=== PATIENT | female | born 1960 | race Caucasian/White ===

== ENCOUNTER 2023-01-29 11:17 | Outpatient (OUT) | payer MEDICARE, SELFPAY ==
--- NOTE | 2023-01-29 11:34 | XR_ITS ---
[address] [address] Patient Name: TAMIKA MYRICK MRN: [id number] date: 1960 Sex: F Assigned Patient Location: [facility] Current Patient Location: [facility] Accession/Order Number: [id number] Exam Date: 01/29/2023 11:55 Report Date: 01/29/2023 12:20 At the request of: KISHA CASTELLANOS Procedure: XR chest 2V EXAM: XR chest 2V HISTORY: Chronic bronchitis J42, acute cough R05.1 COMPARISON: 09/22/2022 TECHNIQUE: Upright PA and lateral chest x-ray FINDINGS: The heart is not enlarged and the vasculature is not distended. No acute infiltrate, effusion or pneumothorax is identified. An old rib fracture is noted on the right. IMPRESSION: No acute infiltrate or evidence of cardiac decompensation. The overall appearance of the chest is unchanged. Electronically authenticated by: CHEPE AMOS Date: 01/29/2023 12:20
== END 2023-01-29 11:18 | disposition home or self-care (01) ==
LOC: RAD 11:25
PROVIDERS: Family Provider Internal Medicine; PCP Internal Medicine; Visit Provider Nurse Practitioner Family
DX: J42 Unspecified chronic bronchitis (principal); R05.1 Acute cough
CPT/HCPCS: 71046

== ENCOUNTER 2023-05-01 22:12 | Outpatient (OUT) | payer MEDICARE, SELFPAY | END 2023-05-01 22:13 | disposition home or self-care (01) | LOC: SLEEP 22:12 | PROVIDERS: Family Provider Internal Medicine; PCP Physician Assistant; Visit Provider Physician Assistant | DX: G47.33 Obstructive sleep apnea (adult) (pediatric) (principal) | CPT/HCPCS: 95810 ==

== ENCOUNTER 2023-05-14 08:53 | Outpatient (OUT) | payer MEDICARE, SELFPAY ==
--- NOTE | 2023-05-14 09:11 | MM_ITS ---
Patient: TAMIKA MYRICK Exam Date: 05/14/2023 : 1960 Gender:F Ordering : DR JUSTIN ALVAREZ M.D. Admission #: [id number] Family : DR VIVIANA POLLOCK Order #: [id number] CLICK HERE TO VIEW EXAM RADIOLOGY REPORT PROCEDURE: MM TOMOSYNTHESIS SCREENING BI COMPARISON: MG MAMM SCREEN 3D [place] CAD, 12/13/2020. MM SCREENING MAMMO BI, 06/15/2019. MM SCREENING MAMMO BI, 04/25/2018. INDICATIONS: Screening Calculator Name NCI Breast Cancer Risk Assessment Tool 5 Year Breast Cancer Risk 1.50% Lifetime Breast Cancer Risk 7.40% Personal Breast Cancer No Personal Ovarian Cancer No Treatments None Family Cancers Mother with lung cancer at age 87. LOCATION: [facility] BREAST COMPOSITION: Scattered areas fibroglandular density. FINDINGS: DIAGNOSTIC CATEGORY 2--BENIGN FINDING: RIGHT BREAST: No significant suspicious finding. Scattered benign-appearing lymph nodes are present. No significant change has occurred. LEFT BREAST: No significant suspicious finding. Scattered benign-appearing lymph nodes are present. No significant change has occurred. RECOMMENDATIONS: ROUTINE MAMMOGRAM AND CLINICAL EVALUATION IN 12 MONTHS. PLEASE NOTE: A NORMAL MAMMOGRAM DOES NOT EXCLUDE THE POSSIBILITY OF BREAST CANCER. A CLINICALLY SUSPICIOUS PALPABLE LUMP SHOULD BE BIOPSIED. Dictated by: Taiwo Whitaker M.D. on 05/15/2023 at 13:58 Approved by: Taiwo Whitaker M.D. on 05/15/2023 at 14:01
[2023-05-14 09:17] LABS: Basophils Absolute Auto 0.1 10^3/uL (0.0-0.1); Basophils Percent Auto 0.7 % (0.2-2.0); Eosinophils Absolute Auto 0.7 10^3/uL (0.0-0.7); Hematocrit 39.2 % (36.0-48.0); Hemoglobin 12.7 g/dL (12.0-16.0); Immature Granulocytes Abs Auto 0.02 10^3/uL (0.00-0.03); Immature Granulocytes Pct Auto 0.2 % (0.0-0.5); Lymphocytes Absolute Auto 3.2 10^3/uL (1.2-3.8); Lymphocytes Percent Auto 32.2 % (20.5-60.0); Mean Corpuscular HGB Conc 32.4 g/dL (29.9-35.2); Mean Corpuscular Hemoglobin 27.7 pg (26.7-34.0); Mean Corpuscular Volume 85.6 fL (81.0-99.0); Mean Platelet Volume 11.3 fL (9.5-13.5); Monocytes Absolute Auto 0.7 10^3/uL (0.3-0.8); Monocytes Percent Auto 6.7 % (1.7-12.0); Neutrophils Absolute Auto 5.3 10^3/uL (1.4-6.5); Neutrophils Percent Auto 53.2 % (43.0-75.0); Platelet Count 146 10^3/uL (150-450); Red Blood Count 4.58 10^6/uL (4.20-5.40); Red Cell Distribution Width 13.4 % (11.0-15.0); White Blood Count 9.9 10^3/uL (4.0-11.0)
[2023-05-14 10:12] LABS: Alanine Aminotransferase 22 U/L (14-59); Albumin Globulin Ratio 0.9; Albumin Level 3.2 g/dL (3.4-5.0); Alkaline Phosphatase 67 U/L (46-116); Anion Gap 12.4; Aspartate Amino Transferase 15 U/L (15-37); Bilirubin Total 0.1 mg/dL (0.2-1.0); Calcium 9.3 mg/dL (8.5-10.1); Carbon Dioxide 27.2 mmol/L (21.0-32.0); Chloride 102 mmol/L (98-107); Chol HDL Ratio 4.1; Cholesterol 219 mg/dL (<=200); Estimated GFR (African America >60 (>=60); Estimated GFR (Non-African Ame >60 (>=60); Globulin 3.5 g/dL; Glucose 113 mg/dL (74-106); HDL Cholesterol 53 mg/dL (40-60); Potassium 3.6 mmol/L (3.5-5.1); Sodium 138 mmol/L (136-145); Thyroid Stimulating Hormone 1.168 uIU/mL (0.358-3.740); Total Protein 6.7 g/dL (6.4-8.2); Triglycerides 212 mg/dL (<=150); VLDL CHOLESTEROL 42.4 mg/dL
[2023-05-14 10:25] LABS: Creatinine Urine Random 153.24 mg/dL (20.00-300.00); Microalbum Creatinine Ratio Ur 8.4 mg/g (0.0-29.9); Microalbumin Urine Random <1.3 mg/dL (<=30.0)
[2023-05-15 05:07] LABS: HCV Antibody Non Reactive (Non Reactive)
== END 2023-05-14 08:54 | disposition home or self-care (01) ==
LOC: MAMMO 08:55
PROVIDERS: Family Provider Internal Medicine; PCP Physician Assistant; Visit Provider Internal Medicine
DX: Z12.31 Encounter for screening mammogram for malignant neoplasm of breast (principal); E78.2 Mixed hyperlipidemia; Z11.59 Encounter for screening for other viral diseases; E11.9 Type 2 diabetes mellitus without complications; J43.9 Emphysema, unspecified; Z80.1 Family history of malignant neoplasm of trachea, bronchus and lung
CPT/HCPCS: 36415; 77063; 77067; 80053; 80061; 82043; 82570; 84443; 85025; 86803

== ENCOUNTER 2023-05-22 12:05 | Outpatient (OUT) | payer MEDICARE, SELFPAY ==
--- NOTE | 2023-05-22 | XR_ITS ---
The [address] [address] Patient Name: TAMIKA MYRICK MRN: [id number] date: 1960 Sex: F Assigned Patient Location: [facility] Current Patient Location: [facility] Accession/Order Number: [id number] Exam Date: 05/22/2023 12:13 Report Date: 05/22/2023 12:28 At the request of: KISHA CASTELLANOS Procedure: XR chest 2V EXAM: XR chest 2V HISTORY: J40; Bronchitis COMPARISON: None. TECHNIQUE: PA and lateral views of the chest. FINDINGS: The cardiomediastinal silhouette is normal. No focal consolidation is identified. There is no pneumothorax. No pleural effusion is noted. The osseous structures are intact. XR/XR chest 2V IMPRESSION: No acute cardiopulmonary process. Electronically authenticated by: MARYANN GORE Date: 05/22/2023 12:28
== END 2023-05-22 12:06 | disposition home or self-care (01) ==
LOC: RAD 12:06
PROVIDERS: Family Provider Internal Medicine; PCP Physician Assistant; Visit Provider Nurse Practitioner Family
DX: J40 Bronchitis, not specified as acute or chronic (principal)
CPT/HCPCS: 71046

== ENCOUNTER 2023-07-09 19:47 | Outpatient (OUT) | payer MEDICARE, SELFPAY | END 2023-07-09 19:48 | disposition home or self-care (01) | LOC: SLEEP 19:47 | PROVIDERS: Family Provider Internal Medicine; PCP Physician Assistant; Visit Provider Physician Assistant | DX: G47.33 Obstructive sleep apnea (adult) (pediatric) (principal) | CPT/HCPCS: 95811 ==

== ENCOUNTER 2023-10-09 14:03 | Outpatient (OUT) | payer MEDICARE, OTHER, SELFPAY ==
--- OUTSIDE RECORDS SUMMARY | 2023-10-09 14:31 | XMS_ITS | CCD ---
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 Name Role Phone JUSTIN ALVAREZ Primary Care Unavailable JUSTIN ALVAREZ Admitting Unavailable JUSTIN ALVAREZ Attending Unavailable JUSTIN ALVAREZ Primary Care Unavailable KATHIA THORNTON Admitting Unavailable KATHIA THORNTON Attending Unavailable Whitney Garces Admitting Unavailable Whitney Garces Attending Unavailable JUSTIN ALVAREZ Primary Care Unavailable Valente White PA-C Admitting Unavailabl e Valente White PA-C Attending Unavailabl e JUSTIN ALVAREZ Primary Care Unavailable Valente White PA-C Admitting Unavailabl e Valente White PA-C Attending UnavailJUSTIN Sanchez Primary Care Unavailable Nadine Colon Admitting Unavailable Nadine Colon Attending Unavailable JUSTIN ALVAREZ Primary Care Unavailable KISHA CASTELLANOS Attending Unavailable KISHA CASTELLANOS Referring Unavailable Allergies Allergy Classification Reported Allergen(s) Allergy Type Date of Onset Reaction(s) Facility (1 source) moxifloxacin; Translations: [moxifloxacin] Drug Allergy [facility] Repository (1 source) moxifloxacin; Translations: [Avelox] Drug Allergy [facility] Repository (1 source) pregabalin; Translations: [Lyrica] Drug Allergy [facility] Repository (1 source) traMADol; Translations: [Ultram] Drug Allergy [facility] Repository (1 source) Tudorza Pressair; Translations: [Tudorza Pressair] Propensity to adverse reactions to drug (disorder) [facility] Repository Results Test Name Value Interpretation Reference Range Facility Coding Summary 01-30-2023 [facility] TyptorgsKSg3xXj+PGhlY WQ+VJ5CRYVjJ06rhJFjfC 4qI3IUSSbYAjjeUPPVMPn DPcOldrUlFL8whYVzRAMx IC8+OZ1wLJZvKiqfbYYag 6A3gTU4Y73mio1rWHmsxK R8WIKkLwAwhzsbe0opdUq 6IDcuNmluOyBt VTYtkA49CKM5lU03Pl08y FGppWWzc6wowAg2HcYlJZ StHXO2uFavMHamk2SvLZK cP85dyGIdm4R5 LKLbzSdteNNiYtGomZF8s X5lKYmdhhhak9pxipclFl y1ib39wSJrx1L7tAQ6T6F vsmF1UZJmoEZx AtgfnGQRuR5jcgoss9xzw cgfWiOcFRRvLXt2FPj5GZ UeoSjfSiMxZS76JWQ6ETR qxoAeB8ZiBBZe gQseBqU8z4T3Jr6HA0XOJ owrD2DBFYCSPEiokKR+PC 99fd32T8OnOpabKln1VVM gMHK8jMV6qN8c ARPhFMsyd1G4rUB6F8Gpt dRueq7fs2gaNVSrMLvvD4 3liPDmt1V0PNRehSQ4AMW nyVprBpCqpE82 Oyc+XTDhbQfux8VlNqkxs 2lmu6ufaVy4JzzlYEShhm SczJqxGCH2f7JaXg5cIHF zoBT3rCP7rN6z SmKlFvH0SJchN977GuJmy CLwZjmpZ95jK4KoiNW+PH QyErn2TDEuvBumGK6bW0G hZGRpbmctbGVm uScnYH2kEBNpvejrSKLcg Z6sDZKyX5f8GdMgLsO2SN ohW0SqINOhotfuBm32kW8 yGwSlZkI0VMgk C1SaeoJ6HURucIXfNNktB CY7Q15he1Z3HMJwGOIxIC T7kIQ8qT1soDkttoqohYA mdDsgdmVydGlj ARhfUIqnH432ILIryLaiI kNvZGluZyBEYXRlOiAgMD YvMjgvMjAyMzwvdGQ+PHR dJOR0nZecQYIk cXSfELlvPb4lvAnwdNmfY O7fAOMavqtmHDPqqB5eZM OzpBWnzOemQP6aONUadny ip674FuFqUKM1 ZYRcoAPqE0QdcZ1oEfPaQ OFwBBVbM8UbyGYpLFneK0 65IEwcFiQ9LBLectDlO3R sLWFsaWduOiB0 x7F8Fk8Jk4CpmzqqJ6Pji LCcAnHmTtszDTh7M7DxUw wvdHI+UN78UUJpVD01GAq 8KJD7bIxaBZmw RGCcL2AciR3lRuSuPLVmP GRkOyc+PHRhYmxlIHdpZH RoPScxMDAlJyBzdHlsZT0 zMc2qAGIxOFHt vPdriBQiHfWnv3gaFLQiN LjmTK2ptVbrQ2UlhFW0VR Pbv7x2Ag63T31lS3FbqTZ +EPJphKF8pAV8 kD0vOoPrZmP9EUtaY465D iTrxVSnNpcuk4inu7dwnY w6ViO2ISZqtwGqhPabCVP 5x5MjWh27F44e IHdpZHRoPSIxNSUiIHZhb Takog5dxN6bEp1+PGNvbC U7kRF1eV8fRaRhWiR2YUy qD697JtDveYTt Eskry8xcg4ulqUf2VfAtZ TDdcgRhvUkeEEG9t5HeEk 69J4JlpMlui7BzRvf9da2 8yYAse4F2iEP2 E6UrKULjpgbzmDHxgWjuS D3jCOQpkyumJCLwcM5cCF GbF0b3YzQvPdC4XHzqM3C wpdZ5NLHtbXZp ENAfwECFiG5gldjhq3grp splKaVtGZTkKUe4NGc1XR XhsBwxVqHrSXC0BvU8URR 7eQFjaL8jxHqi hakkvO4gAqu+IHN8qSNqa QPIYP7nImxswKI+PHRkIH L8xEpvXOjyAAYogO9zDIP qC4v9DmRiFpL5 AGkmO2ZnumR9NNVssRKfZ BFbzVUQzJ0kdmcmx9movl esOkTqBHDfVUu1JOe9GOM saWduOiBsZWZ0 VwS2XFD4bTUphD1sgGipv vgabT2zSur+QmlydGggRG B3UHx3G6FqWvx3ODYvwMa pWQ7pmNChNKvl Su3iiNugrRnwTU4jTYAmg wvpr430XgPvl7isLDXahQ NcMLzcIAN6J76vd2Y6BAU uDJCnDEY9cXO6 qZ7ukKulhoyejJLjqUylz fYxrRneEUnwUYarM934QO WlcVuvVbWjKBg6N3HfZfn 3YNPwrLnzLB7n gTZjHRcmWk6itGaurUxkC V6dVXYtpokfq127RbPny3 ffEYNznHYoVHfjTAY7N41 vq7Y1YYMwXKUf TGF7eBZ4mV8peRzbaznod GVmdDsgdmVydGljYWwtYW ttE745GJZukMgkNkNpsWu 5M7BxLsk8HRYz mFeyMB9bzVAvFZwtEv1mx FvjuJwxSI3kSIKwpjkjc2 59PqPfh2upWPGzoONcLEc lYZX7J50wy2Y6 UELqFWZzPRQ3xTK0mJ3cb GlnbjogbGVmdDsgdmVydG ujKPdfHAkoC558UMMyyNn nPlBhdGllbnQg EPpcTWb5T5WiYgiueXA+P E08DXXuOA75kFJtjWIgj3 zwfPb7KxXkHTDqYZZ1qBo wCRgfm6WxPHUe R10rcODda1R3VPHwnPflg SDnWsTvbOQ0tI6oDKmjtp oqy6irlsvxOamls4bqnz9 0yL42Y00jAEqm ZHRoPSIzMCUiIHZhbGlnb v9pcF9aAl0+HEBrqUO0oT S9fP4pNELbJkS4WPusQ84 9InRvcCIvPjxj e1ikf9yzcMe1JzD7RWXyy yYhmHdmETE8y6GeUa11F0 9sIHdpZHRoPSIyMCUiIHZ oqYlqji4wuD4e Ii8+FHSuhBW6cDF9sX5yZ gOfMnU1HOvyQ578LsPfwE AuXggjJ25fP6XkpKR+PHR uSic0ZORymOnz LL7ymKPdXUqtVf6lZKB6V gVuRuCaZPjyN0PyIRYurl uekwddiGT5ZEQqGWTjxQ0 8Gy0xqJzyVFHn iSUVzD0wsfdsn3upseriN dDsXWNvWUe8GYq7DBOpjN rvGiPxBPJ6PcK4STW2hCU fzJ7ghXrszjqz lN4wS5NuJNHffuosCl67w D4xQtBcCyH5BWrsYiy+Ql JPQURVUywgVEhFUkVTQSB ESUFORTwvdGQ+ KZTcIEJ7sFgtQTlcEKIqo I8qYEVjW3e1SgEkSfR2XO owN5ZaPFVhbsoaMi62zY5 xPzMkJiW6SXxs X5XeegW2COFsmNVaATwlB JE6Y67jv8K3TDNpYFVdUN J2gVP3mV5ucEzjebmbdWJ mdDsgdmVydGlj FHtoRTybP226NCCwnMpiV rTuNzGdQzF6BjC3I5NuYo a6ALBncXclNJ1hiUJyYQi oKr0zhWeywYgr CD9gBFHtfyddSCRpcD1jG ZOzeWYijRysRL1cJAJbge swh468ExZpPIQ2KFEljKH iV1ZtgI6iMbNm UHUsDWCpZ1UbwQErNLktW 089YKnhWzX4WRBpzoIjR1 PoULWrmKlyWhB5c6F5Tl9 2MCBZZWFyczwv dGQ+YHTgULI5kRoaBDhkK YGlbZ5pOFCcN1v2PqEiCn D5GMooZ8UgPIQinsbjQx8 6qZ1nXpWyZpD7 EDsgW0TszzC6WYTehTRdM HrxHBI3Z98jx7J4YHGjNF XkUUD1qMV9cB6ezYhsugr gbGVmdDsgdmVy fMfkLGbmRWpgZ904KDBsl DsnPkZFTUFMRTwvdGQ+PH XyVOZ0kRfaIQlrZTMaiP7 qFKOzG4d1NbKe ZpB2ISkdQ2LcGFMbvkitK a13fE5cGrVnFqC6NQjvF9 EkxdK7PQFryWWsSFagTXQ 0B89mz3L5TRDh TZQvSDK0xAF2hN1hxEtnq jogbGVmdDsgdmVydGljYW hxVSzyA207HYJftLqoDzM vFCQrZU6fjPzn dGQ+JE81he26N9NpEeuzB qi5LDHkEEO5xYY1jL3tIM YnTKaxk0W3vCY2L5EzgvT tpd3mm6gcDTVu VAkrV50knNVvb4Q3SEHhi PF6GAUnbUqsHjLbkM80Xo c+KCFwcLgas8LvAvwkl0m hl3wbkHe7MoWa ZEOjxaPfeMauOPQ7e4PxA j22N95tJJabGQAkVCDqXA DeJGOemSrtab6zmZ7rCg8 +JSLnlTC3mZS9 sL0wOhEyYeY7CFgyC440W hAcbBKoNbmqj3hdu9ubnG d4EkHzFHLwakWxbPzzSSA 9a8NqCe91M2Us sDeqk0AoIin3dc31cPSfx 1A5dDA7O9WlZZDhfvefoY JbkQerDX9yLPUyyxsrIDE qyM6iHHKjQ6b0 OnAtRsM1BVtzQ9LvveM3T THpqGSdSJHiqTWBaV2bka rnz5toumktUxMuVFRjZWj 7BLa9TDQklXcy UjUmEFZ7FaL8BGB8yFDlk A0whOcvobnreY2xGye+UG q9n1xijWQsLO0gkMK5MO8 1OW79zQZcs4M2 mPQ6M1XiVBQpqoytkcypm OO7FPVmAJNmyL06Zg2nzD ctGc2dWRQuIVN1CKAijQZ yJ9TgoD7yFoSb EAEbAUVeX5DoqNGsHJgzV 938IJedJtS3PJLphlFeO6 LoUWRtkScsJaA7w0L6Rk0 EDP21HW41MV71 zYFsq0O4tLB9D3VeQMDcq tvllqeweWI8HSAtGAXivT 92Ky5htLzfPc4mQVRuIND 9OFMwoOQzH7Ci yW4sDrUuNFYeWIFyF2Uvo DVqEBdoS076OOkfXrP8IH WhxhFtP4QaXXSgdYufTpO 7l4D9Cn0DSu02 WZ83UL50rMWld6Q5vUH5X 0SnULCkrehktxthfHX5XJ YfHOHktT74Ez8vqSefQo2 vOXFeKFN7ZPXp oZWzQ0DuwP5yPqAnUWMwI QTwU8FwlJZdKUhsB721LY ilKeC8AHQoiaOhO4XvDLM vvMweNjW0e8Q0 Wp1CTOxnlff8V1PfCiqbl KY+TZ77GZKtZJ60aHYjfS Qjr2vkgYb9XdXdRNSgCQB 3iGfcKByhd6Vb ZXI (more content not included)... Normal [facility] ED Clinical Summaryon 2022 ED Clinical Summary [facility] - Emergency Department [address] [place] [address] ED Clinical Summary PERSON INFORMATION Name: TAMIKA MYRICK Age: 62 Years Sex: FEMALE : 1960 MRN: Acct#: Visit Reason: Itching; Cough; COUGH Arrival: 01/25/2023 18:19:21 Discharge: 01/25/2023 20:20:00 LOS: 000 02:01 Check In: 01/25/2023 18:19:21 Checkout:01/25/2023 20:20:00 Address: [address] [place] [id number] PCP: JUSTIN ALVAREZ PROVIDER INFORMATION Provider Role Assigned Unassigned Whitney Garces PA-C ED PA 01/25/2023 18:23:59 01/25/2023 18:51:49 Heidi Rodriguez TU[employer] W[employer] HAND Nurse 01/25/2023 18:51:14 Whitney Garces PA-C ED PA 01/25/2023 18:51:54 VITALS INFORMATION Vital Sign Triage Latest Temperature Tympanic Temperature Temporal Artery Pulse Rate 89 bpm 88 bpm O2 Sat 97 % 97 % Respiratory Rate 18 br/min 16 br/min Blood Pressure /83 mmHg /83 mmHg MEDICAL INFORMATION Medications Given: Medication Dose Route dexAMETHasone 10 mg IM albuterol-ipratropium (albuterol-ipratropiu m 2.5 mg-0.5 mg/3 mL inhalation solution) 3 mL NEB Allergy Information: Tudorza Pressair; Lyrica; Avelox; moxifloxacin; Ultram PHYSICIAN DOCUMENTATION DISCHARGE INFORMATION: Discharge Disposition: Home Discharge Location: Home PATIENT EDUCATION INFORMATION Instructions: Asthma, Adult, Xyxj-df-Vidr; Contact Dermatitis, Yshg-ul-Orlg; Acute Bronchitis, Adult Follow-Up: With: Address: When: JUSTIN ALVAREZ [facility] [address] [place] [address] [address] [place], [place] [id number] Within 3 to 5 days DIAGNOSIS: 1:Bronchitis; 2:Contact dermatitis; 3:Asthma Patient Understands: Yes - Patient/family/caregi olimpia verbalizes understanding of instructions given Comment: Normal [facility] ED Patient Summaryon 023 ED Patient Summary [facility] - Emergency Department [address] [place] [address] PATIENT DISCHARGE INSTRUCTIONS Patient Information Name: TAMIKA MYRICK Age: 62 Years Date of : 1960 Reason For Visit: Itching; Cough; COUGH Arrival Time: 01/25/2023 18:19:21 Primary Care Physician: JUSTIN ALVAREZ Attending Physician: Bladimir Marquez Comment: Visit Diagnosis: Diagnoses This Visit Asthma (J45.909) Bronchitis (J40) Contact dermatitis (L25.9) Cough ([id number]) Itching ([id number]) The Pharmacy at [facility] is open Saturday through Saturday from 9A to 6P and Saturday and Saturday from 9A to 5P Prescription Information: If you have been given a prescription for narcotics, seek immediate medical attention if you have any difficulty breathing or any sudden status changes such as confusion and sleepiness. If you or anyone you know is experiencing suicidal thoughts, mental health, alcohol and/or drug addiction problems; contact the [facility] 25/02 Crisis Hotline -Text 1CDPL av 143715. If you received any narcotics, sedation, or any other medication that causes drowsiness for the next 24 hours, unless otherwise directed: ? Do not drive a car. ? Do not operate machinery such as power tools, lawn mowers, drills, sewing machines, or stoves ? Avoid alcoholic beverages and drugs for allergies, nerves, or sleep ? Do not make important personal or business decisions or sign any legal documents With: Address: When: JUSTIN ALVAREZ [facility] [address] [place] [address] [address] [place], [place] [id number] Within 3 to 5 days Medication Information: The exam and treatment you received today in the [facility] Emergency Department were for an urgent problem and are not intended as complete care. It is important for you to follow up with a doctor, nurse practitioner, or physician?s video library assistant for ongoing care. If your symptoms become worse or you do not improve as expected and you are unable to reach your usual health care provider, you should return to the Emergency Department, we are available 24 hours a day. For those patients who have received Radiology results, the interpretation of your X-ray as given to you by our Emergency Department physician is only a preliminary report. The Radiologist will review your films and if there is a change in the diagnosis you will be notified by phone. Please make sure you have provided a working phone number so we can reach you if necessary. In the event that you had a lab culture while you were a patient in the Emergency Department, you will be notified by phone if there is a need to change your antibiotic. Please make sure you have provided a working phone number so we can reach you if necessary. [facility] Emergency Department has provided you with a complete list of medications post discharge. Please inform your primary school principal/provider of your visit and for further instruction on these medications. Any specific questions regarding your chronic medications and dosages should be discussed with your primary care physician(s) and/or pharmacist. New Medications [facility], [address] [place] [phone], [phone] dextromethorphan-prom ethazine (dextromethorphan-pro methazine 15 mg-6.25 mg/5 mL oral syrup) 5 Milliliter Oral Every 6 hours as needed for cough for 5 Days. Refills: 0. predniSONE (predniSONE 20 mg oral tablet) 2 tab(s) Oral every day for 5 Days. Refills: 0. Additional medications on your home medication list not specifically addressed. Please contact the ordering physician if you have questions about these medications. albuterol Inhalation as needed as needed for shortness of breath or wheezing. albuterol (albuterol 2.5 mg/3 mL (0.083%) inhalation solution) 3 Milliliter Nebulized inhalation Every 6 hours. Refills: 1. amoxicillin-clavulana te (amoxicillin-clavulan ate 875 mg-125 mg oral tablet) take 1 tablet by mouth twice a day for 10 days. benzonatate (Tessalon Perles 100 mg oral capsule) 1 cap(s) Oral Every 8 hours as needed as needed for cough for 7 Days. Refills: 0. budesonide-formoterol (Symbicort 160-4.5) 2 puff(s) Inhalation 2 times a day. cetirizine (ZyrTEC 10 mg oral tablet) 1 tab(s) Oral every day as needed for allergy symptoms for 30 Days. Refills: 0. chlorthalidone (chlorthalidone 25 mg oral tablet) 1 tab(s) Oral Saturday, Saturday and Saturday. DULoxetine (Cymbalta) 30 Milligram Oral 2 times a day. fluticasone nasal (Flonase 50 mcg/inh nasal spray) 1 spray(s) Each Nostril every day. ibuprofen (ibuprofen 800 mg oral tablet) 1 tab(s) Oral Every 8 hours. Refills: 0. labetalol (labetalol 200 mg oral tablet) 1 tab(s) Oral 2 times a day. lisinopril (lisinopril 10 mg oral tablet) 1 tab(s) Oral 2 times a day. loratadine (loratadine 10 mg oral capsule) (more content not included)... [facility] Coding Summaryon 09-24-2022 Coding Summary [facility] WjronjboNQm8zHr+PGhlY WQ+HE5NYVMhN05beKKncN 8KB4bILB5SFASDMROAGZ0 JHT7xhQR6HQvkW0BgfkZu RlgeqRSzFS99JYx4HGF3p GpyCOqcdB3wpKVrZ6c7Ke YoBK69eU66GUydPPMdOsV 3LjZpbjsgbWFy P1hxKlWhgOCsUji+PHRhY mxlIHdpZHRoPScxMDAlJy BuxEtkTS4fCm0pQYSnXNJ vbGxhcHNlOiBj z6euYDBbGVmiZA6wcFvlC 7KebED1DKNrb1w7At43uJ I+GGGcCVS0xNsdUHoqf23 4WzIgt5juSAU2 vURkOAfeRTS6X98uf5U5F VJbAPGhCSB1cHB7aP4fcE qbwyieM8QtfAUnQlV1WUX 7lVGzlR2oxIre kxhszB0hAtj+W59RVE1CS EXVEF2INar4W3EwNvfebO I+YK78HULcYZ42iYIipYG tm0gweRb2BrOm PWAsUTS6fDqzEWtyh1KiN OYlN44qlMKrs1F0MHKocO rqkAPxMpUamUW8jO9bKVz lojozb4giuchi Bhctt1dtqz74yU02L42cU AakAPWuXCW7JFWmGOAomX pwxi0tmU0qIs5+NXhrh1c si8dilCb7YsXz VOTnzkPjtFxgLCW9m9QuU q93N8XcaJacj1PnIox5rs 94iPWif1D1zOZ4MDsqQTP uzG1cSLfdIxL8 BMVmKhJlnC15yKHpZSdtW d5opYqegObkEQ0fXCKyds zdRBAwyN7hKCAzgZLehEn eDZ1iFLDhuinm s817RoPnVXU2YZQscUKyJ 7DqzR8tOcOiYOSwLIBmZ4 IjeDGoTUvmV311XKmmGfZ 6CGPrhzFnW6Cu HCIrkDgpDcE1l7Z5Ax8Kr 8IcbzrbPAG3THtjJWLiDa CfOmKuWsJ7D1FxNyw4VQO fwLjwIA6tD1Hn GLBmxnmjjcdrtTV6ZRDzQ ZZigP15dLMaFZogIr0dm1 B2f324BSPeZPRzvE36Np7 udDogMTBwdCBU cZ9ahaeuj7lanqtmVnBzH DTnKBd2YAt8IUJafGkoQa YfGNY0MxL8IRP0oLNedN9 vcOqqhsqdyR0a Oyc+L58otF1vYOU0NUV4u fcnAXKpyjYwCQ73NR49N5 RyPjwvdGFibGU+PGRpdiB voXboZV5yFfBt g3yki3YtBRbuC2KoCGHbC YxmKef0DKQiUNA8kXI5zE 4wLPHhCNjga6Z6mCL8D4Q gkkQrrx3rg2wz ZAPcKWzcX02cxAHrc4M0N AZchRV7EVMxaAzpNdLcnR 93Oyc+TTXbtNsjz1PrKvq hn3gql4mpwQk7 PyHdYJLumxBxxKddKLQ6p 3XhVm22Y19dARwpOWUzWT FsBBAnVPOwtGahjc2xwI8 wIi8+PGNvbCB3 qVN6tE8uSSWbSjY2GEwkY 573PgVrjVFiHzndr6bdh1 cfzCt8JuBuWMVvxdOhzHr nZGQ9q4IaBs36 K24lNGomFECuVEFkJRCfI WOnfJympu2szL2lLz4+PC 2ss2ogdr36eX28tCZ+PHR tFWF8yNiqLCsw ZZGqwU7aLGwaSpD8PUIjC sRtjC43eHWfDXbpMl5smD jwePndDS8yVPIjhibby81 7RwAqv9vsLUGk oXGgXXshCHG9L26kc8P0I BHkVSRdXYM8yJU7yJ4ewQ lnbjogbGVmdDsgdmVydGl yBHjwZCsnM855 IHRvcDsnPlBhdGllbnQgT rTlPDz9R8DeHpm8QWFzjL wdYX0gwTNcIUdeUj7prZd zqPoyDG5iLQMz ruzgc830LbCmd1xwZEEuh SDfLEwpMZQ4Y89yg3E6NE SdJAKqRDZ4tFA5cQ5dgFn nbjogbGVmdDsg tvOrdFfhUGntAImmT534L HRvcDsnPkJpcnRoIERhdG K4ES34JE83dSKpa3D8cWF 8E4AzQBYhjutu mqutmOP9YFIlYMEdxI63Z j8vcUawVl9iIIRkSMC9FG ObbSJaJ2BxfT7oAmIoRQA xRGSmO5UmdJPy JMkgY946FTklHnW2MKIru fIsT2JvBMTtxMfcPgM1b7 U0Wx2EJ2T5WU43GG38dMV ip4N6sSL7O8Cd XPSldzqcmnvoySZ9MFCaS OIveV89Ta4ndFiiAi3iEJ CgJCY2KBRmrSFaR8HazZ9 yOiAjMDAwMDAw D2VxmGNfRPtyL185PImbU lB3PHZfavJwI7GjHXWnwA sjHfQ1s1R1Sh0CNVd2XW0 9DX54zLOtb6B2 yYF4F2WvVNTluapeyavjb OW5KVEpIKLktN00Uz2pqK xoJz0jZKBeBNC6MKSwnWS aE1EhoO4dVxTh HVOcQLIyC9LleRExHEyhU 143FWrxVuG9NKKwljTwW7 GrKYTztAmnJnH6x4H9Vx8 CXRUeNX23UZE9 cGX0UB79YA29V6IzYyayl GFibGU+PHRhYmxlIHdpZH RoPScxMDAlJyBzdHlsZT0 aJx9vBWKdIUXl cOkzxLMlCzRgm2mtAWDpA FhhYS2opYvpY2IlrXW1HC Iaa1e2Hi60M73xE7XulXE +OEHspGJ1oYL5 cQ4uScIgIkD2BPgoL450G pLmjHYiRsbyc2hng3thmF r0ZcM4AOCennZlvJssHPM 5e8AmKy04J38x IHdpZHRoPSIxNSUiIHZhb Sdxog6hqU3uCg7+PGNvbC K3lED4fP3wDpJwDiT6ZNx vU433RhAzeFCm Fibrs5cgp1yzlDo3SzXeI YFrcbIdgHbkREA5e7LzXy 64C4HxhQrvo6UzDtw5yp7 5pVWqv7N9vUQ4 R6RlHVZpfgbbdKWzhYdvW I9yKQYcaoxaVERirD5uGF ByT8y7SqAgTbW5ZRteA2M hrxA7RDDavZJf ISncVHN8Y10of1E7BYHiV SAjCOX4nKR7kN6xlXrcxr ogbGVmdDsgdmVydGljYWw oOMegY523MITc cPlyWPXduB0tUCZfhTWne LcqUZ0mMOVnaqerPxUTJ1 ZXOFRjLPSMCMRIZ1GdASd HZrF6B6BaDhx7 GEYtjEqtGR9gbMHiIPdvT g9iqXlmbEwtCA0xSWMtbo acOMFpeA5mQMWjcZVtiBc tGB1lOKZcfuwt q835CyZnDFO0PSDflCWoO 8BogM6vWzEePEBxSFCsP4 VdlMCiADwxR466NUouMqD 4DLJqzpQcP1Xv LLQxeDpiYvN3h0R6Hb5oJ T1gQn8dYDPgGM81PP43aE Ogx3L8nQY8Z0FxNCYsmfv vguxbcJN1EZMh DBHmyM77gTAhKMwvFf5nf 8Y3s015XSNoJWTcbK10Ij 0mxNbxDRCwxWAFcW0mgyb sm4pdsokhGmUg ZGKtJKd1GAn6XNSfhFahE kCmSIO4UdX5TCI1cFRgcN 0qmZpikshmzK0dFzx+NjA yBWFgjmP9L0Ec Jne4JFZyoPmzLQ7tgDBtI CfaLk9fnVntmWsxWC9qUV LjpcrvXSAqkI2vEHIymCJ qeLtgPP9zUWOt fqjwz889NaInFWT6QLNyd YKgX4CquX2dTtYuVAQgEY WaL0YyvMOfKUvkG905TVi rIvQ3AKVhhxHy Y3NnOMJtuErlXdY6i7O1Z s7IRI7VFGT3V7RrSis2DJ PbeSrlCF3gvKFsUIjiVy9 zpYfvoNiiZL8j OFEpemseCWEmfG1mQWEzf LPkhMgdXT1cMADqoijfo1 31YgMyBKY9RTMprUPtO4I haK7aUnQzFJOv PRGcO2RslLBoAExsS477J OboJcO3XHBycwZtZ1ChYP LblBosUnL5d9B1Gh5TEOu vdGQ+WH20ks06 R4LpIbhiDod1YKIvFFL7c AT2yH5mAYEzHXghp0K5kG Y9F5JbjcLabb1au6sbNXH gWYufT17spMIm b7S2DACtcHV6LJHwgTjpD jZylO41Yii+PGNvbGdyb3 QiItbvm0hop3wfyDi7AcE wJSIgdmFsaWdu SNZ8i0FmFu37E69rOModM HRoPSIzMCUiIHZhbGlnbj 5xtK8kVl6+IBMcuQU6nLB 0aZ5vHjUhUxE5 HQunO457GoEbuAZqFjepi 2cyn8yvnIk4IuDfFRGvus NslEdgZOW2l9RrPx93L5B vnVxoz8QyXbs4 mm26sRFxa0G9qAL7E1GsL DTujukgoGGzyFnrMN7oJU ApnuuwGTArvU7eILQqN9h 8YrIxVcO8MQuq K3XrxdQ3XCYzhCIgYANnj HQJkT7vvcvta2ruhqncEe DyVKMzFSd4LZc0FWUruFt xIfAzNQI9EhG0 UVX3nMHrlQ4nvWrmjopmr G9wOyc+AOp9i2irmIErJJ 6kxNI6PQ35NV35nFOsx5K 3sYW7J7WtXDVp owkiakmpbBQ4MDOgPOTnq I69Ob1wpFawNg3uEPFhVN V9COGiyXSxO3SdeQ3xJrL ySWIwWQWbF1Vj nHRaSRkqA490EFgtGgI5F ZZkrzFfP0MlIJAygAwzFk V9x2M4Lp7MDJ88JB73DD6 6sCCcy9O5vBB5 N8RgHALeuelrjosirEC8Y YOfFVJaxQ41Zf2anSwhUc 1yHDHqLBQ4GNMapFTzM1E ztG1zQlYiIELg NDHnZ4KhrKJlEPfvI558B VeaFqF5GFZlmdYnQ5PrBX EbmDmxBaZ5g0K7Rv3HQh4 4AF98WM33rLXa t6Q9oIS9V2WvIMRijrfht ldnhZE6RECyWZKndT71Td 0pcTqsSr4sJFDoTPU1BFM pyKKoW3EndS5s JyLpGNAeMTZxG9YscRZzH ParF798VKpcUsY0ZGBkux GaY0OzIUFyxRunWlC0w1E 0Ik6JJTmnxnk5 Y9UgVorgdVN+AR19JGIfW H40rIVpfJOfa2wuqSp1Wd PyLTJiCUE9rRooDEind6E zWGWeO40yfHQb c2U (more content not included)... [facility] Provider Orderson 09-24-2022 Provider Orders [id number]#1. 00OTGTIFF [facility] Provider Orders [id number]#1. 00OTGTIFF [facility] XR Chest 2 Viewson 3 XR Chest 2 Views EXAMINATION: XR Ches t 2 Views, 09/22/2022 12:51 PM EST HISTORY: Cough COMPARISON: 09/12/2022 TECHNIQUE: Chest x-ray: Two views. FINDINGS: No focal consolidations or pleural effusions. Cardiomediastinal silhouette is unremarkable. Visualized osseous structures are unremarkable. IMPRESSION: No acute disease. Final Dictated by: Rohit Major MD Dictated DT/TM: 09/22/22 3:31 Signed (Electronic Signature): Rohit Major MD 09/22/22 3:31 pm Technologist: DAT [facility] Coding Summaryon 09-18-2022 Coding Summary HTMLBase 64 OcsjoyxqUOl9uBs+PGhlY WQ+WP6IYHSwA67urCLjiZ 6PU3pJNL3HHIBCRBICUU4 ZNI0csUI5UBzuO3KcmbVk LmhhhUSpXL95QZk9TDI2p DgkUHvypP6cfANcV5i3Xs RoZD83sA03SQddBXMoAvN 3LjZpbjsgbWFy I8ktUuKovCFjSao+PHRhY mxlIHdpZHRoPScxMDAlJy WjmErgZC2pCs2zDOQtGJP vbGxhcHNlOiBj a8ykNRCoKBolWP2uiKgeH 4RofEK1TZJud9g2Kq08xF I+WOLwVPS0sLkbBOeca32 3JhWcu1pvQLO9 qOUcTByzXSH9Q35md5T9R KQoANZlYGX2cLW5wI3ufI dtipznT1AlcOOuIzC6VRY 1oALgwO5urCpo titkcO2bWvp+U56NKB1ET CLPZH5HSpn6U5PvOhnwqT I+NC18NNZkSF45kYVqlQD jl4cxzGm6WoYv KSJwUAP7qUydFIklg5QmX EWmR92ruDGle0Y5WWLcvQ kreLNzWrQzlMK1qD3bSHe mvrvwj3srxwdh Rnamg2epji15xQ96C61mF IoqDHDtSWX7ELZaHCBvmJ tkfn8uxN5oIo0+NOumw5b if0tetCv4OqCj LQQiroYzyJjoEAT5v4AtL y85X1AzkYvzp4FgMns2fi 72jFLrz7A9hBN9RIbaPWG bnL3uQPvtCvK4 APFvXsGqmH78pTPfMEfuS p8lpMkvsTboBN2bRSPyyr kvRXYxeE7yXSLgcRPuzRl hWB0dYZYohzkk r918JhXwUGU8ZNUvpKQfN 4XahN5jCeMxAMZuAATpG8 KyaIOtSZqwJ607HMiuHuQ 1PDDzoaOsM6Ie CRGjaKzoYqT3c1V9Oc7Ka 2OiqjbfWYJ6IIfnAOIhVn N1FfKwQnP8C3DwPlc1ADW esLocNJ6nU4Lg CELrmvfhqvtrlEY7XTWfF KRqlQ06sQXzYDdrQb5ms7 O2x510HIFwBKKwqS52Wi3 udDogMTBwdCBU qU2wliewr7vdpswaPzMfX XRnXYn8IKn0YVUzyEcjRk RuNAX8RbD3HEC2tPVzoU8 miKjjmmkugJ7a Oyc+B16xbX0xMMT5RLV7y bteMWJaweVnLY40CE53H3 RyPjwvdGFibGU+PGRpdiB kcFoiDF7mSzDk c7bdn9DdGVffT3NuGAWlA LusAit2UPUfNEK7vNG3kS 7dZRLkRCyhk8I3zZS4E7E qvxUatg1uj1th QANzQIuxV97dqUMbw1U4W VPapYR5ISFnjVreNsZjqQ 93Oyc+XRBppSzty0FyVmn ut9zxd1ianOy8 AyWcYMPrczUyyEfoRID8k 1HtCv76Y55zPLkcGNFpOY YzSSJhTRVqyXqovy0zvU0 wIi8+PGNvbCB3 xTY7dS8hIDUpUlS2SLywK 228JlVyjSXiXicah5ljk2 zacBx3JjTsULKrggNuoLj xIEU7z3UtSx12 Q12fVYjpEGLpDWCwMRFvQ SXorJdgjy9cjK8tJz0+PC 7uv6uihv02hS53dPS+PHR sABS8kHpvAMny JLAenA1xWNffDfO3WEBjL gBcqF94pRGlMLohZx8plG mulDqbOR0aIEAujivnz54 1TvLrd3ijGGXh rEOrBDtzYKI3S93kv9Q8Y KZvDZEfCXP3dNB0nJ0hqN lnbjogbGVmdDsgdmVydGl mMWvtBWxuD047 IHRvcDsnPlBhdGllbnQgT sIpXPu0A6PcAuz6AYPvaA qgGE9igJWkRDuzBa3cjKi miTlpKL1nNQEl sijyq893DdDgz3mrRQRzm JBgPAuhCCL9N16ub1E7UQ MeDCXuCWN3wGR2xR8stGp nbjogbGVmdDsg glPdmBemEQbxTYetR884L HRvcDsnPkJpcnRoIERhdG A0YC10UT16qRXhu4B1bJL 7K8CgLYRggbyl lnnfuTL6ZHXcJODzaK49M n4swMmgJu3iLRZxJUD1OP FsoXJaI7BgbP2zTeKfGOJ qKFZrK2MvnMVo VIamU218OSarQfU2QYCnx nUjA5LmNPTrpCmvTjC0n8 C1Jh9LZ4X1HK27BP09jYY vx8I2rPT2C7Sr AFSlgmxleezlkZD7KSTrW CDrmU84Qa5wlPtcNt2qTW LoEYS2CTUamLFqK6MbzC7 yOiAjMDAwMDAw T4XrkOBbAWlfG983MBbnD zB0ROEravNzD5ZwYVTqsZ zcHoD3s1M5Aa8SGHf3IA1 3IJ18lDLff1F5 uCM6R0TcJREfczekwzmjl ZV2SQCiKGNqzI71Wx3qsL vwKh3zGUWhZRS1MTZykYV eJ4HvtY7uEaUu ITWrYAJaB9SjmPQvZMhjD 591NZwwLjT6KCMpisTbV0 UoIPLuwWarMtD0g8A4Ms7 QFLJuFB83KDZ9 xFM3NE10IP16K0YzOkmvc GFibGU+PHRhYmxlIHdpZH RoPScxMDAlJyBzdHlsZT0 rZm3gOXXnYXKn uWuybMUaAuJmy5hbJTDqG CmbCM4vbDhwL2EepXF2HL Ine3l9Nq52X08gP6NrkKC +NNRxpAJ3lZG0 yX1iIuZkNuJ5MHciB914J rJftCPuEpewj5cns7uwkQ n4DqG4AXTwdlZheEakLNC 1i1OqPw41Y41p IHdpZHRoPSIxNSUiIHZhb Qabgy8rsN8bXu6+PGNvbC D8hLO5aL5tBoBiTnK7WFj xQ661QqAtvPFw Aihpr1olk1ekrJg8WrBsS NPcuaOwmGlhUGZ1n7JjHt 73U6GzcKjtg1VtBag2td6 0aPJif9Q1wHR0 C9OvHQNcebthwLVtfXtiL V9pKVEfogdtSXDtdQ7qZY OkU1o5PfSaUcK2RZdpW3R uhgL9QCZcuNSy QUsbXSI5V54yn8C5NOXyP VIpLRN7eHR4nX2zpBknaa ogbGVmdDsgdmVydGljYWw cCOlqZ776MJSz kXxpHFWcnL4mSELdcGRai BhcKC4qFQBudrezHvRGY5 HPDWOgXAOTMPCLR2LoPRi RUeR0P2HsWhf1 YLAloHncCG3fxRNpSQsaZ q0qrFlfpUtaCW1pWZUzxn ktMKVbqZ6qIWWtqJPdkXz lXS3mOZUdpgta q692UvGxKDM1ECFloBQuD 7RtcL9eXvWlEABbGMNaM6 GtnEKaEVtrN680HPkyDzQ 5AZDdmaBlL6Pn RXNjhVwlFeP3j9S4Os8jZ P4xJe8bKXAbLL08LT40tO Jin9G9xGX0M6PmXJPkshw kwrqlgKZ7FGPv EBLhdR05sCMfTQziMu8ac 3N1r127YWZaJTGpkS44Ol 1sgYawFTGnrYWUkP2zpbd yp2opfrcgUzTf KFRoZSx0HLt7YIZmyShlZ yVdBGN4NiX0DWJ4eNCpgQ 9qwZqxwezmoF5zJzc+NjA fJVAqkrU6Q3Ap Qxu3FVSyuVlcGM7zqPYkC JwiGs2pmQdrmMsbHC3sND FocfueORVzxY1kEIOimDL avBetJH2oTPWw mecyi711FmPoVCD4CWZga OKuA8CrnO8yVgGzYLBnGT ShJ5VntECgVKgnG822ZKs iMsZ4XNScctVv P6WaGFFnkEumQdF2a5W6S x3IAU9EXWC5V7LkEmi3UV IhcAtjXS9jsIYeJFmgBr1 jbKkjiMwkFT0b HDTjlemhNGDbqL0oJSQcy AOsiUdvUX9mEKHwobwns7 48EfWrYNU8GWJguTBrV1A qhS6jZwEeXCZv UIEgX1OpxZPpYWndS855J EibYyE5RDQsawAgG7RqMC MboYlmWuJ3e7S4Xf0WCPh vdGQ+ES91bk94 H2WpAcowBfs0AMJmMIB3k IZ8aT9mUNMiCBxom3O1kD T6O0OxkwUcbe2rs4loKEN fIPlxG38eqAXv a5Q7HOXuwOE3KVBsbVckO vNcjV38Nsf+PGNvbGdyb3 WxOpmjl1ves9wjtQl0IgY wJSIgdmFsaWdu YRA9k6RqKj53D05kJTykO HRoPSIzMCUiIHZhbGlnbj 0klD5kIk4+SWZzjQX5xWR 4xZ4bHwPoZoW1 VQuwH765FzRnhSXzQanst 2pez4hfmYt3TpLhKEPjea GkfWlbZRY3w8QgEo89M2H kxJuql6XyRlz2 ih02mJMdn8S8kPC6Y0DbF FMcgdazjRKihBvyKD5jPJ JwajqrYTYofT8pYEUsL3k 2AzKgRbI6JObv Q1PwtiN4HFGvuSDyARXhk IENqM3igjtbk4abxnuiEt QxVJQnMKp5VVh1LSXebUj aZeLoVJD0VmF1 NBQ4mKBliZ6hmRjekvfgu G9wOyc+TRw5v5aljHPsWR 7kiQU0KN39UK32wKHyv1R 0bEB3S9ZwLZOn wzregrtmuVH9HDMiVZNwt F04Mf5zxTkcPd7qLATxDT Z1WPMubAAeD9NbqK6zJfM cIHCgIJVvR4Yz rDKaDLnxD731UGoaVnD1V JKmgvNlT8XwXNZjmItvIo E6n7K5Qs1FGL22ES21AS0 2lPPej8V9sMC4 U9ThMNIvberyuogbaOX0J FVcUJEmqB36Zy2xzToqGn 9fPGQnOHL5XJGebFNjD3C siG0qUvZaIUIk POUgI8OzbEJbAYvqJ118B PfjOvJ9JSDscbIpQ6OxEN ZmgWemCuG8p5Q8Vq9ELo6 8JY05VN16hVPy q2M5wXE9W2TwCYInzjrpd ihxzMH8AKOzVTMmmT87Db 2ghEotEn1uQKSrZRF0IDC saUIbG7ZguX5k QzPdPPXfOOWvW6YjqSJoF ZneM889JNauVkP0QTHvbu YvH6DwLSXnfNdhTaL8u3L 8Sf9IRLrvecq3 S5GeGjwgrHA+ZQ50GEOiF A36aPMhhVKsn9jkeHb2Oh MiIRKtPKJ3jCmeSRwee2V yZXPeW62tnCUv c2U (more content not included)... [facility] Coding Summary HTMLBase 64 ClckzqfdQMt8zIo+PGhlY WQ+ZH9CTUQhC99uyYEgjS 2HQ7qGQS0SSKHQLVCVEN7 KPC2duJE7OUlaO4GmoqOo TztqpQOlYH08CFa9PWI3r KujFRwztS8ngVFbJ3b9Bh FcJI75yM86QAlaFEBgOhK 3LjZpbjsgbWFy Z2vhHuWtnMAqUki+PHRhY mxlIHdpZHRoPScxMDAlJy HddYseGT5iDe3qCRYwUEL vbGxhcHNlOiBj q4pfTQTbSAzvJW8zkUnyF 6FyzZT6JTJgg0v5Fa70bM I+IQPwKYT1bUsmYEfbz34 0GsWzl9ijZYY8 aZPhASrvUBM3N62rx6X4S RBvLMVeZAU7mUF0lQ2isQ eddbqiD3NuiQTsZfT1QLG 9rJSczO9wwIhc ymtujX5wOgs+A73HJK8DK OXZHX7ZWtu3X3GePocseH I+CT80TWJbLC64aWVybRB uz5vfnQa3LwQy KDPqCPW1xWfrVQthx6RrP UOwJ34jwZKeq0K8PEYskM dfoAMrXoDilKE9zM0kXWg vfyymf6xhxofi Ejpty5ryzk64yI42A77pP LypPYTdDJL4XTXlCWXrdY sklw2ouI1zHs5+IYdgg0j fv6jnwJj1KwHl RMReeaNgeYujJJM4t6IsB i60Q4UjqTxid0LrKba0ta 74cQVem1V3nNR7LWvnSXM qcE9vJFvpCmZ0 KHFyKnZqaE49pEGiFIlsQ o7sbUggkVixDL9kHBMtqm amMQUrhY2cPCLvfZPajVe yXL8uGPApzmtk z762ElKuKLK7GQIixCZtO 4HsyX2tOpOwICJrOSPrE3 EwtLAvOBaoM149GWjlCmY 1PIHujxBbA8Ph SXDzyIqoKyC6f3D1Er5Gc 1OgsiliTWB7FLpfMMXiDw V0TvTcPvC0K2ImUrq9EVO isYpsXM5yO0Bb UXCriwpiwcdstSX3SXRlP DHtyG38cXOnVFebKs8pp0 I2q592UOSwOYIkwE79Pp8 udDogMTBwdCBU fP5mwxemm5ibiwrxJdPsJ OTtYTi0CRq2YCGcbOtqRc MoVHP1LnY6IJC2zPQgqG1 ixDvulojbtR0g Oyc+N40ylQ6hACC4XGL6z cqeHKQunwEcEF84CM63X1 RyPjwvdGFibGU+PGRpdiB wdGbuJB0cSrJp z0mlh8ZyAKhsX9KqNODuT HyuAhe0NFCvYXL5kXO6oN 6hWMMhFPiob8W0lSJ1G6Y ejsEuiz3qi7ra FIVlIXwfV45fvUVup9C9J TTdtCV7AVVjqMayNyEusB 93Oyc+PWXnjPekp7WjPha ix4uhd1hkyXt6 CmWsQKQywaBruNldRGA6y 4XqPu06D99sJYnkBHVqBB SkWMJlOOYulMufve0qoS2 wIi8+PGNvbCB3 hHL3lR2uPDQeRzU8OHthS 789FgEqtNEpGfcbt0xgr7 ugvHu7ZbBcVHNgffIapEa iERY2j5EcAj15 I91mVRegGJImHBZbMYMiK IFbgDusge8geW2rAi6+PC 8vs7edrp96rW78aBA+PHR bTOS8fYmeOQqe OGEhfF7zAGzuGhX4YFAuF mJodR61aJFfLWwoRa2pfA gndAueIM3jVTIebrfty92 0UkRqm5frXZOg jBAbQLonUCN9Z66tx1H1P UPwTGLnGTD0fRR9hT3icM lnbjogbGVmdDsgdmVydGl tCJhwWEyuQ419 IHRvcDsnPlBhdGllbnQgT cUaZVe3T2DmNvf0UOAvuG rcXP0avKOpUGpbMc9dkUw fxOdjJC3hWKAx wmyoh518BlIlx1rqVYYhb MBgTTixSWN2E96dl9A5EZ NhNGEfWKD4yAP9tW4xgKx nbjogbGVmdDsg npKtcKryKXfyIYspO918F HRvcDsnPkJpcnRoIERhdG U6HV07MD03vPEfh7D8rXY 7W6UcZNRwdwza gcwjtZD6QLGtOZFdiM30Z e8kpIwcMp1xJKFvZBY3VU SggEJcY4VpwE8lMsOdJDJ nYEXeQ4OjmEMj ABdtD116NNckVvO4JXZte eGxX9MvIVQzoVuaXcX3y5 W9Zo9ER8L7KB09MH08oQB hm5F9cRA7P9Uf HWDinobuvacfeWY1YTZeT NYazH23Ok9ouRhmKk5bRN ByWQH6XKAmvATqX1TgjB1 yOiAjMDAwMDAw C2PtfUAzNFvxO464NNtmH uQ5YISxzvAyX5OpSFEvrG ghUbS0r8U4Ey8CCNv7IQ2 7QO24tSRia9B1 kYT4N6GiVDTcxrnsbqbim ML1FSEsJQUghL51Fi6rvW rjJk0sTGAdHQU9VTVixPZ eQ2UqyL5bAiLe GUVzHXDtM4LscETaACidT 180OJptGuR1UYTntsLxO3 RtGVAecEscJaZ2s3Q8Lv0 TQMGfOH34ZBC3 fPS3XX78OP38L1LdYbpqh GFibGU+PHRhYmxlIHdpZH RoPScxMDAlJyBzdHlsZT0 nPn6rNVXiWUAw qRfvfNQlUgYnl2odOCFsE EvrGA4bcOwvX3PukWW4SZ Qir8n5Wu61V36bQ8PodYA +UCFqmTF7qEW0 oK1eNeJvVfN8OKeiF227Q uAfkZVuDhqia2hyj9mfcN o0ImC3KINvfoQfxMwxQLP 5q0VeXl49Y87d IHdpZHRoPSIxNSUiIHZhb Cyreu6gnG8sCx1+PGNvbC O4iBE1sA7pSdIkEyP7VNc bG892ZtNkjRBe Texpx8vdv1intFk3KtYtP ZRufsWfmOljMTX8r7ArJb 99B9PccZikr9PtRvn1mg1 7eLGby9A7qTS8 G9UaMWTotdbsjLEdlMljM M1kGGGogzjbCCKmrQ4bKG FyK7p9QwRtWlH7XFtdZ1V soaK1WBOktAAh JYubAVM5R28xh0A0APKrE JYzQJT9jQP8pX9xyPbuwf ogbGVmdDsgdmVydGljYWw zCOkpW553TLBm jDadCHSyaR5oNZNgzIZzj BwnSP6aLZLcfbmaLqLVR3 OBECFnTLSDGOPPC6KcJUb ZTeY1G8IlDea9 ZZBlvIflSK2nnXPfVQltJ l7tdCxriQvfRS4hUAUwfi wvQEMdkM5hDWRceHZojBu ePA5nFKBgivqq y185MkFeQTK7JOBiyJTjJ 0UfrX8sGeMlYVXiUTNeL8 QexLUxGRisI981QGrgAtA 1ZCZbhrJhM8Nz FOXisPqiHmP6p4V0By7xN H9kAh3jVLJbOI77XB28pI Uvm0M2aRX8L7BsBVLmnun zpusqgBY6ODVg WOZfzW49uGAqIYnuQg1of 2D3z819HKVfISHxoO98Bx 5xtJxaAOVgwTLWwO4oadc xt8fiavvrZtQi XPPmQEp9PXt3FKOesVtnY lLnKFI2ZmL0LQG4xTQeiV 9poSqcrddesR0wQmp+NjA oBWBvzqZ1L6Fk Fmy5XMGnaJqkLX5alSVuP QcnKq2ghXokvSibBU5kDX ZsurzhZQLwjG3eKGGajBR adTvgEX2rCWFm ugqsj184MaZqOKK8XEKsc QOtH0ZubF3tNoSgOWKpSQ QxU6KsfKOjKPkbL060RTp rDrS9HQAbeoMw G5UrPOMmnCwsFtT4g7B2F b6RFF8SCUP0O3KgVjk4JK DwqDyoYW7qyALrNCtwJu3 ioYeosXrtZA7p NCGszdhpKTBiwB7zFMGpf GIhwQbmVP0lTXVhnhdii6 61HbPtFUW5SXKhkDAiD5R chP1tWrTgSSFa RMNhR6HpoTHcEUoiH447C AetQiS6FPTmjrLgS2AmWE WnqTneAnL8d3M1Ng9JrKX hZ8RkL6k2L0Fc PjwvdHI+JU74NNQfZJ39z LLenFCbc0kjtZd4ZzKqOQ ZeRQW3hVouNDvbz5XiIMC eD84jjDIfl1I4 ORWzvFdmwOWtFuFrmTH4z K8hWMhvcbocc5grupvqWg wwj5omzr51rJ01V58jMFc pZHRoPSIzMCUi LOQxjFbhon4zvP9zPl8+P ZJdtKB7xYB2zG6jFtBmLi X6NTcvE719NqJiaMVqOuj mi2tzo9hibYm0 CwRyIQUxouWmiTnzXSI6c 9CuDz58Y38hLHfpFGJoYL RmDOTgIMXrbPzket7guA6 wIi8+BQ5ad1an tl51yA07gDL+BQIzLBK8l RfiKTaoGQCcqQ7hLTweRr V0FZKbHxVmhX37nSTnOKm mLy2asOuouHkf WG8vUQFwwgfxq894OtXul 5zpCWIeuGNeNRxvXDO5T3 5bo3B8LTMcSBYaOOG1bCL 2uB8izIqylnch bGVmdDsgdmVydGljYWwtY BxmQ464IDEpvOmrZcWwoG DyO2qvgbAOPJ1hDozviRS +TTUqKMS8kEmm VEvkGDPerV8aOSIuZ7j2O dYxWnZ7POvwS3WkknM9RH LyxXPsMKJjbMDGgO3zcym rq2udzzthJqIx UAFsAJm1LWb6LLSkeIppQ nTcCDR8BmO9TEF1qAHscN 7irOletgoxdX9iPax+Rkl OOjwvdGQ+PHRk IAN6eCzuVQdlOXLxcY8wJ HBbM0s9GtLvLmW0OXkyO9 ZgjfN9TNZtpMZdOPLqnDG XfM2nuplxb0vl xqmfMiLeFCKhXBi3NJf5P ODajPfwTlPvSUZ5NkS6YS R8dNQvtH9hyPjophjldI7 wOyc+TVJOOjwv dGQ+VBWrICF0eJziAPhbF NIsrM4lHVLbU6r2UaUgZp V5OEabN1TuwsX2ZFNzjDU cZHLgmZHXpB5s dwjpr3lgvxdwIaBzMNViS Ma3TJz9SSPpbCtaRaIgVY H3GrH5MDN3aSCozT9csOb enwvwwH1eUly+ ILE2YMM5OD42YD85W1CsB jwvdGFibGU+PHRhYmxlIH dpZHRoPScxMDAlJyBzdHl tER6kWr5cHUGr LWN (more content not included)... [facility] Coding Summary HTMLBase 64 ObaluxzaCKa4rEv+PGhlY WQ+XO1ZEXDzJ21ndSHwmD 7GU2pFCD0YLRANNHCCZY3 BRM8kuLB8VHwmZ5JcxzSd WwlxcTIjXZ09FKw6RMN5k VciYKvdgB6zfQQvE5i2Wp MgBY99iB90WSceTIAwCjM 3LjZpbjsgbWFy E8ivDbVadXXlXrp+PHRhY mxlIHdpZHRoPScxMDAlJy CiyJsdJV1wJo4bBYXhPMU vbGxhcHNlOiBj z5ybMUQoFZlaGG9gkLpdO 4UcdNP5OASnx5k4Fz80jQ I+QNTtAMZ8hXuqVTshh63 0OhQsu9saXAQ2 zULhBMhkIYG7O63ao0E3Y TTuMMEuAJU7uCO4zZ0dpM tygzytS7BvmPEdIzN4FBI 4tLYbkH0erVoc qpdenD4fKaj+D48YWT6LP WSRNH1YHgu2G9PdXsparK I+VB81TGGoAP73dYDtrTT xw6hkaDt2MkOi FNSfWKB9iZepDFxbi8NeG GVeU34eaUJma5Z7TYNyaT cvtPBwJrQcdSH3tV2wABu amicfj1eavppa Ikkvn7onue03kC38Q48fE LvcJSVyFCR7OBMuIXNzfU bayl3yaC9dWu3+OHhiw6y kh8vzxDk8PqIg XUInwcMygZzgFCJ2v7SwB d16V6UegIrkt7YgMvv2tk 00jZRcv7N5fIO9HGvrJAO utE3lTVupVvX6 KAXjRcTftZ20eDMyNXtxC n8fmCpubJnxXN7kKKDcpp ywQYUpoF8iBNOvuOCjxMv iKM1vXTDtozyx c481RaAgVRE8LGHqpUJfK 0PcoS2sVgOuUJDpVXXaD4 JkkQXiLHrwM606IFuvFzN 4ZJPcuuPjS2Ay ZQYjlKtgGjR6h3M7Pj2Tg 0WetnopLEO5IBbjAHSiWi A8LtXzBrX7W9UbOfy7KGQ ccCvkMQ8yX2Bx VSTikpzpjdhydSH3WGCxU UFkcX60lVSzRItzGa0rr9 K3z430LFRjRBUbpH02Xn9 udDogMTBwdCBU fM9yhhunr3kufnulJtCbY TLxHFu6FIe8VNAfgNbxYp EuGRY4OfF8TDP7kHObxK4 zbFowunzefW8y Oyc+P03lkD7xZWS7TSV9m eyuGEPjyoGaSV09AL96O2 RyPjwvdGFibGU+PGRpdiB naMnwGC8wPcKc x9pov0XtMGdpQ0YoJOKhS JqcSpz0IJFaAJO6jVW5aL 6eAUIxTTdsw0V4mXW0Z8M fsqJtec9hk1la ECOyVKvxC61crCKzf7M1J YSloDW1GGIxhFvmLwNnkN 93Oyc+KAKudWkdt8FoLqg fy0obb0xqoMu4 RyKhZBEngxRyjBheCCD8i 7WsMb62Y17sMEsgKZPrDT MsYIMgFJZqjUlbjw6wrI9 wIi8+PGNvbCB3 jJP6uZ8lEMLqTsN3ATjbG 845MmBggULuGapdx5lif2 gjuMh3GlFyCWJaamHkwAv tCUN4i8FqHk54 B79gIBlvBTEtADXrBSJiS TLojBrvzg5cmL9eKv8+PC 0bi8chpc86lM70gPO+PHR gYGQ1nHkaRDqr CCLqsU2iXAcgEbO3ZQRnO rDjnS30nOPtETolIl4yuV lekRtkLN5oRJVgudlup36 1FjWtj4vkNTZw lNGcOLidXHB7M47hr6A2V GLvLYBjLTC2gTY2eE1pmT lnbjogbGVmdDsgdmVydGl nVCyqMTlpP430 IHRvcDsnPlBhdGllbnQgT gZnTAw6H0WeDxz5GTWaiY nrCZ5csSTjVAfhAu8psPp smNmoZC2bERNr feqet039MpVnr2avIZHgg URaEPbkKKR7I72ps0J6WF RlATLhMFM3qYI8vS9wpCr nbjogbGVmdDsg fdUgePekTNtsZTqfV245Y HRvcDsnPkJpcnRoIERhdG O3HP01RA69aKIkl4S1jRE 5E5WrGYYsqygb luvtyTX5ATEuABNqeC58V t5tsEsnVs2wMLGqNHV0NO IkjBFsO6FszQ4qScUpZHQ qPZUoY4PddXCz AQktL804LQepSdX0RTNsa aRzI2SnDFWxeMjtRqY2x1 M0Pe9AF2R0HG52ME96iJA bp9F3uAM6P6Lt ECQgkqpclipoxCZ7PSMsW OTluO10Lv7xaAqbDz4yIZ TpYOK7TQUapLNzC4CqkA5 yOiAjMDAwMDAw O2QgrXDyKFqcX071AVufF iT2NGKrkpQvX5HxPTPfbT osYoE3m9C5Rx7CNDs9PU6 7IV08gGUqq4E3 gTT5P6AhHDJuqfraoujde NI0VYQkNQFyeS39Ky6lwO rxGn5bMAQeAMR8OBWceMM kR3TyhJ0dCoLt POLqMLBqU3QfbWBfKOlpG 614RVozNiQ4YKSzcxQfC0 MdOFZeiEooJuF5b1H4Uk4 IPZLgVM49XIC5 iXE8OF13QB09Q6IhBgdmh GFibGU+PHRhYmxlIHdpZH RoPScxMDAlJyBzdHlsZT0 tRh3eZWRhADRq uZtnfGSmTxWmo0ljPUTuL JykGI0bzCdhK1DoaIE8ZE Ayi2r8Yt48G61tW6AzkWU +OCYfkDW8rTE8 hH2lMxKrNvS6LSkiC621E sSeuEQcWibms8ldt9zzsX g0RoS4EYEprnAwsRqtEQY 8i0UkFn32I19h IHdpZHRoPSIxNSUiIHZhb Gpnty9gfF5zGz7+PGNvbC Z7wKR2wJ3aUnOyIcX9JFj yW620VeXfyMMj Jxozj2tdd5xrzSb8HeXdB AUcnsZptPwzRPO0f7UqDy 75Z9DrfGxyu1VaZdv2af7 7nFRly0A5qIQ3 C6ArFLRrwgohbJIaePzcJ O4fIZNjiribBUXcaU6lIJ IrI7q4XxErLyO8FNmvV2D qsmO0ZQThsSOz LGfdUAA9W69zf6A3IPFeM JOrGPC9oDT7tP2lxHjmpj ogbGVmdDsgdmVydGljYWw zILlqW491DAOp oFeyNGSjgT9xFTBppABop PvqAW4iDYLffpkkEnVLH1 NRYHGbBGCYVSSOU2UeKDb KZiJ4M5PcHax3 RKMppSooWJ1pmIGcJRaxE k1slBglqZkkLG2tTYDkcu ujJGApoV2aZWEaoKLvgGm eYX5dWBAynyzi w859GtHpERX0BUWggFGrG 9GvwR5gEoRdKTEyMGJcZ7 AtuQUjXAxaH770EVutHqG 7LSFlrdIzN0Vu EHKqfFhpHhQ7h5I5Pq6xO W1nGw6qSMTuPZ38PG60tI Wse0A1sTJ5Y6QwFDIyzfn xdhqfdAT4KFXj LERrxZ03mXNoOExmAz5hw 8N5l379VSUhKWTcsS72Vq 1qvUwqGZTiwIAUtR1tbbl fd8pbjmyhCoWz RCRoKSx1JIm2HWOguTxcM aChXYT3AiD9XOQ9nPXgzN 4qjJzladooxS0cAxp+NjA dTIGelaV3E5Wf Rnk7CXQplLvaTE0yqFKhR ZctQb9hwAynyKslNI8kHZ YhkcxxEGDswP2sUONhuVD coEmpJD3jJCXm sxswi825UdNgPCS6AOIfj RJuU4XkbK7hWvTaTPZlIK QiO1AfuQJnNHquP523OQa vKoZ5MNLbppQs C2UnZNUyiTgzCpG9k6E0K m4VSQ4WOZC4H1NsKhd0NJ SjiMoqAT6izDNcZAetUt9 ifUuqpHmdPA9a RBWfaqodUYGuzY3cNZLca NCvfPqcDJ9cSUVsywuae2 94MyUmTEJ6VIMikPLsB4N tiC3aJrTeZBEh BVUwP1BchJPkXVznM439M IceYrV8MKKdsdKmW6UjRI QyiXlwIuK5i8Q5Wx2PfYH eG5ZxV3j3X2Ad PjwvdHI+ON83BRYdWW27b PIfgPAbq3qkfZd5YxGpHM JeUGJ0kQtcGDsbw9WwIBS aZ75ohFRdz6Y8 BGEkaHxjnJNaAdTgxFQ8d R7nJNxqjnniy6abvbwgIe vmr6bdnl68lU18S10jZJz pZHRoPSIzMCUi DLWtbUzgcz1nuD4aCi2+P RTcqXW9vSC3wS7cLgRtCp W4DIhsF220HtCgrVKcRzr mu4jop2ilqFk6 UwRsNMGabeOvyEusYMQ6w 5IcYk02E62zARmwZQIxGT FbASHtAIKkbKiaee5xtY3 wIi8+SG2xb7yd mi18aT52sZX+AZHhYTG5k BipALbqSHNogM5bLJnlPg C7GDOfJvZjbM30hOOfYWp iGc4qrIfhvFtk CR3bEWZqmvmro073GlBeo 9tdVJIogSNdQMqjWFB1U8 7gi6N0TAPrAZCnXFH1rUG 3jR0sqOlocste bGVmdDsgdmVydGljYWwtY AotH500WKCpaSgcFlOnyW FgM6zcgdNYSP6zGuhpkNT +GKVwWBA1iSby WWpoMPXxmZ4sAVMpZ1v1M sWeNtT6JPhoV0WfymT8VU JtqIFuVWKnhJHRzQ0pgri ud9teiylxViFb PILwOAg2DUd3YYHciMvlA yNgZGU3HzH3DLR0wEApmL 4rvZugrkbjyQ3jDfs+Rkl OOjwvdGQ+PHRk UDP1pShtFNlbDSFzuX4dE SWaA8p9UpFuSwA6YWwcA5 HsqjI3LWHnrSJgCINerSB VpS2uywoxc1cs ijhwYoWxXIFrYFy4QAs5B FGylLffAuJxNLC6TsZ1JX T0nFYarL4tyBuiexhedK5 wOyc+TVJOOjwv dGQ+LWEoKHJ8cPoaHJwiD HFwhM0xVUDlQ7b7OnPyRo M0FNojP4BabjR0FNOuaGT tDLUrtYLCoB9k kkiox5kxshhqNlUjOYSmG Nh8IXj5JBGwlGgtCaLhQP T5GdW3RVH5eOVlaG6etMj vzaydyU5kVmh+ LAI4MHO0ZD95KQ92P3VbV jwvdGFibGU+PHRhYmxlIH dpZHRoPScxMDAlJyBzdHl yZS1rJs1pSXRx LWN (more content not included)... Normal [facility] Noteon 09-14-2022 Ambulance Note [id number]#1. 00OTGTIFF [facility] .Auto Diff 109-12-2022 Auto [place] % 7 % Normal 08-16 [facility] Comment on above: Performed By: #### 7 [id number] ####[facility] (DEFAULT)[address] [place] [address] Baso Abs# 0.1 x10 Normal 0.0-0.2 [facility] Comment on above: Performed By: #### 7 [id number] ####[facility] (DEFAULT)[address] [place] [address] 27822 Basophils/100 WBC (Bld) 0.5 % Normal 0.2-2.0 [facility] Comment on above: Performed By: #### 7 [id number] ####[facility] (DEFAULT)[address] [place] [address] 10185 Eos Abs# 0.4 x10 Normal 0.0-0.4 [facility] Comment on above: Performed By: #### 7 [id number], [id number] ####[facility] (DEFAULT)[address] [place] [address] 47545 Eosinophils/100 WBC (Bld) 3.6 % Normal 0.9-4.0 [facility] Comment on above: Performed By: #### 7 [id number], 6905093400 ####[facility] (DEFAULT)[address] [place] [address] 45112 Lymph Abs# 2.5 x10 Normal 1.3-2.9 [facility] Comment on above: Performed By: #### 7 892647, 1086351984, 7901224657, 27441542, 4785940634, 6114281307 ####[facility] (DEFAULT)[address] [place] [address] 80076 Lymphocytes/100 WBC (Bld) 21 % Normal 14-48 [facility] Comment on above: Performed By: #### 7 716347, 8743536077, 3868348897, 33212984, 5417984025, 5684308674 ####[facility] (DEFAULT)[address] [place] [address] 25331 [place] Abs# 0.8 x10 Normal 0.0-0.8 [facility] Comment on above: Performed By: #### 7 462857, 4135438105, 1134752472, 10665637, 2406390320, 6565539471 ####[facility] (DEFAULT)[address] [place] [address] Neut Abs# 8.0 x10 Normal 1.5-9.2 [facility] Comment on above: Performed By: #### 7 939604, 6348022671, 7569211467, 17146230, 9748544514, 0801272468 ####[facility] (DEFAULT)[address] [place] [address] Neutrophils/100 WBC (Bld) 68 % Normal 44-88 [facility] Comment on above: Performed By: #### 7 314698, 3504333851, 5604536470, 72230363, 3303322081, 0321371954 ####[facility] (DEFAULT)[address] [place] [address] .QC SARS-CoV-2 (COVID-19)/Fl u/RSV (GeneXpert)on 09-12-2022 Internal Control Pass Normal [facility] Comment on above: Order Comment: Order ed by Heather.[[id number]] Performed By: #### 7 [id number] ####[facility] (DEFAULT)[address] [place] [address] CBC w/ Auto Diffon 3 Erythrocyte distribution width (RBC) [Ratio] 14.2 % Normal 11.5-15.0 [facility] Comment on above: Performed By: #### 7 078220, 4817572271, 2024226293, 23487737, 4060083847, 8863441672 ####[facility] (DEFAULT)[address] [place] [address] Hematocrit (Bld) [Volume fraction] 38.8 % Normal 33.7-40.4 [facility] Comment on above: Performed By: #### 7 393932, 7904502296, 0024108288, 54893455, 6264480276, 4424330621 ####[facility] (DEFAULT)[address] [place] [address] Hemoglobin (Bld) [Mass/Vol] 12.6 g/dL Normal 11.3-15.9 [facility] Comment on above: Performed By: #### 7 723258, 4005969458, 9193372701, 14018370, 1436265013, 7188981266 ####[facility] (DEFAULT)[address] [place] [address] Instr WBC 11.8 x10 Invalid Interpretation Code [facility] Comment on above: Performed By: #### 7 228354, 1948685032, 8397111851, 53098679, 4582013002, 0431124153 ####[facility] (DEFAULT)[address] [place] [address] Man Diff? Auto Invalid Interpretation Code [facility] Comment on above: Performed By: #### 7 834051, 3968801066, 4005738380, 83019396, 7596797996, 3246063476 ####[facility] (DEFAULT)[address] [place] [address] 87186 MCH (RBC) [Entitic mass] 28 pg Normal 24-34 [facility] Comment on above: Performed By: #### 7 129858, 7799785182, 6798823757, 33469854, 1640802957, 8764170493 ####[facility] (DEFAULT)[address] [place] [address] MCHC (RBC) [Mass/Vol] 32 g/dL Normal 26-37 [facility] Comment on above: Performed By: #### 7 162858, 1312986608, 6044713555, 37498909, 6895649902, 2587445555 ####[facility] (DEFAULT)[address] [place] [address] MCV (RBC) [Entitic vol] 85 fL Normal 81-100 [facility] Comment on above: Performed By: #### 7 630700, 0456200252, 2281259406, 62767547, 5290640597, 0097553542 ####[facility] (DEFAULT)[address] [place] [address] 99266 Platelet 165 x10 Normal 138-427 [facility] Comment on above: Performed By: #### 7 475149, 6667326105, 7546242297, 54845249, 5402328390, 7918471357 ####[facility] (DEFAULT)[address] [place] [address] Platelet mean volume (Bld) [Entitic vol] 8.9 fL Normal 6.3-10.2 [facility] Comment on above: Performed By: #### 7 087685, 5451630044, 6880750387, 51884342, 2512000801, 6504989823 ####[facility] (DEFAULT)[address] [place] [address] RBC 4.58 x10 Normal 3.70-5.30 [facility] Comment on above: Performed By: #### 7 208205, 8432891109, 8987359604, 54975359, 6399105835, 7107768234 ####[facility] (DEFAULT)[address] [place] [address] WBC 11.8 x10 High 3.5-10.5 [facility] Comment on above: Performed By: #### 7 624855, 5500492515, 1525888792, 78543405, 8330609844, 5796196132 ####[facility] (DEFAULT)[address] [place] [address] CMP Standardon 09-12-2022 Breakpoint Chem Normal [facility] Comment on above: Performed By: #### 7 360826, 8216729847, 5380929657, 20096502, 7129142106, 7470391744 ####[facility] (DEFAULT)[address] [place] [address] eGFR Non AA >60 Invalid Interpretation Code [facility] Comment on above: Performed By: #### 7 053799, 2195850913, 1422163157, 84733147, 6233555092, 9837408185 ####[facility] (DEFAULT)[address] [place] [address] eGFR AA >60 Invalid Interpretation Code [facility] Comment on above: Performed By: #### 7 238744, 4972191438, 6449619915, 26913208, 0029700309, 7549468742 ####[facility] (DEFAULT)[address] [place] [address] Albumin [Mass/Vol] 3.3 g/dL Low 3.5-5.0 [facility] Comment on above: Performed By: #### 7 032638, 6591067139, 6843309061, 49790538, 8709323605, 2443834324 ####[facility] (DEFAULT)[address] [place] [address] Alk Phos 67 IU/L Normal 32-91 [facility] Comment on above: Performed By: #### 7 158700, 8718600348, 7077711001, 63360580, 5085939018, 0772053199 ####[facility] (DEFAULT)[address] [place] [address] ALT [Catalytic activity/Vol] 12.0 U/L Low 14.0-54.0 [facility] Comment on above: Performed By: #### 7 642110, 7501631870, 3392386585, 88018522, 3961306490, 1465590780 ####[facility] (DEFAULT)[address] [place] [address] 81256 AST [Catalytic activity/Vol] 15 U/L Normal 15-41 [facility] Comment on above: Performed By: #### 7 311902, 5536076593, 3217854291, 05505459, 4249691977, 8132571358 ####[facility] (DEFAULT)[address] [place] [address] Bili Total 0.5 mg/dL Normal 0.3-1.2 [facility] Comment on above: Performed By: #### 7 089872, 8078909774, 8351705123, 55838420, 0306870577, 3298002324 ####[facility] (DEFAULT)[address] [place] [address] Calcium [Mass/Vol] 8.6 mg/dL Low 8.9-10.3 [facility] Comment on above: Performed By: #### 7 988764, 6348077275, 6701615087, 69172523, 5620738638, 0533124768 ####[facility] (DEFAULT)[address] [place] [address] 58806 Chloride [Moles/Vol] 98 mmol/L Low 101-111 [facility] Comment on above: Performed By: #### 7 979567, 6284504473, 7372790762, 62686614, 9299247877, 6605843729 ####[facility] (DEFAULT)[address] [place] [address] 01740 CO2 [Moles/Vol] 25 mmol/L Normal 21-32 [facility] Comment on above: Performed By: #### 7 765517, 2412570762, 4735517002, 03470426, 7024959851, 6015800142 ####[facility] (DEFAULT)[address] [place] [address] 82651 Creatinine [Mass/Vol] 0.78 mg/dL Normal 0.60-1.30 [facility] Comment on above: Performed By: #### 7 566186, 6733513021, 7529790879, 39134707, 0531402808, 8302082874 ####[facility] (DEFAULT)[address] [place] [address] 22227 Glucose [Mass/Vol] 128.0 mg/dL High 74.0-118.0 [facility] Comment on above: Performed By: #### 7 428656, 0155855165, 3638770345, 70325636, 5599316314, 4380084231 ####[facility] (DEFAULT)[address] [place] [address] 69718 Potassium [Moles/Vol] 2.9 mmol/L Low 3.6-5.1 [facility] Comment on above: Performed By: #### 7 723156, 9907336624, 2034655745, 06760181, 3281416422, 2090352879 ####[facility] (DEFAULT)[address] [place] [address] 97054 Protein [Mass/Vol] 6.6 g/dL Normal 6.5-8.1 [facility] Comment on above: Performed By: #### 7 167935, 9758367389, 7420582934, 56779939, 3410580672, 0786129067 ####[facility] (DEFAULT)[address] [place] [address] 69199 Sodium [Moles/Vol] 130.0 mmol/L Low 136.0-144.0 [facility] Comment on above: Performed By: #### 7 950289, 2319926633, 3918716061, 99508023, 6211505405, 2165803109 ####[facility] (DEFAULT)[address] [place] [address] 92624 Urea nitrogen [Mass/Vol] 12 mg/dL Normal 8-26 [facility] Comment on above: Performed By: #### 7 594421, 4321064565, 8019715890, 98596995, 4397993652, 5831407428 ####[facility] (DEFAULT)[address] [place] [address] 15161 Albumin/Globulin [Mass ratio] 1.0 {ratio} Low 1.4-2.6 [facility] Comment on above: Performed By: #### 7 586832, 9623965966, 1147915733, 77145779, 7018320479, 4991260451 ####[facility] (DEFAULT)[address] [place] [address] 78306 Anion gap [Moles/Vol] 9.9 mmol/L Normal 5.0-19.0 [facility] Comment on above: Performed By: #### 7 674218, 0543133304, 1400080250, 62942875, 1299240435, 4413596885 ####[facility] (DEFAULT)[address] [place] [address] 75230 Globulin (S) [Mass/Vol] 3.3 g/dL Normal 1.5-4.3 [facility] Comment on above: Performed By: #### 7 836646, 7806826110, 5472942663, 54070844, 3447304978, 5387574098 ####[facility] (DEFAULT)[address] [place] [address] 37541 Osmolality 262 mOsm/L Invalid Interpretation Code [facility] Comment on above: Performed By: #### 7 948590, 5325269682, 2887623365, 30740251, 5425906374, 0088913393 ####[facility] (DEFAULT)[address] [place] [address] 63823 Urea nitrogen/Creatinine [Mass ratio] 15.3 mg/mg Normal 4.6-16.2 [facility] Comment on above: Performed By: #### 7 216147, 6281076259, 0284596753, 51958479, 5348791167, 5778329284 ####[facility] (DEFAULT)[address] [place] [address] 22873 ED Clinical Summaryon 2022 ED Clinical Summary [facility] - Emergency Department [address] [place] [address] 24011 ED Clinical Summary PERSON INFORMATION Name: TAMIKA MYRICK Age: 62 Years Sex: FEMALE : 1960 MRN: Acct#: Visit Reason: Cough; COUGH, SORE THROAT Arrival: 09/12/2022 10:17:29 Discharge: 09/12/2022 12:40:00 LOS: 000 02:23 Check In: 09/12/2022 10:17:29 Checkout:09/12/2022 12:40:00 Address: [address] [place] [address] PCP: JUSTIN ALVAREZ PROVIDER INFORMATION Provider Role Assigned Unassigned Milton Bhardwaj MD ED Provider 09/12/2022 10:23:16 09/12/2022 10:24:28 Christopher CUNNINGHAM, Valente Stearns ED PA 09/12/2022 10:24:20 Behzad RN, Jackie Abbott ED Nurse 09/12/2022 10:31:45 VITALS INFORMATION Vital Sign Triage Latest Temperature Tympanic Temperature Temporal Artery Pulse Rate 90 bpm 90 bpm O2 Sat 100 % 100 % Respiratory Rate 16 br/min 16 br/min Blood Pressure /93 mmHg /93 mmHg MEDICAL INFORMATION Medications Given: Medication Dose Route benzonatate 100 mg PO Allergy Information: Tudorza Pressair; Lyrica; Avelox; moxifloxacin; Ultram PHYSICIAN DOCUMENTATION Patient: TAMIKA MYRICK Age: 62 years Sex: FEMALE : 1960 Associated Diagnoses: Bronchitis; Hypokalemia; Elevated blood pressure reading Author: Valente White PA-C Basic Information Time seen: Date & time 09/12/2022 10:24:00. History source: Patient, EMS. Arrival mode: Ambulance. History limitation: None. History of Present Illness 62-year-old female with history of diabetes and asthma presents here to the emergency department from home via EMS with chief complaint of cough and flulike symptoms. Patient states cough body aches and cold-like symptoms started approximately 1 week ago she states fever in the last 3 days. Patient was seen by her primary care provider on Saturday of this week in regards to his cough and cold-like symptoms patient states she was treated with amoxicillin for the early stages of COPD. Patient stated he does not smoke she quit smoking over 39 years ago. She states with her history of asthma she does have inhalers and a nebulizer machine at home if needed she has been using those as scheduled. She states that she just still does not feel well cough is sometimes productive of yellow sputum or mucus. She denies any chest pain shortness of breath or difficulty breathing she denies any abdominal pain nausea vomiting or diarrhea. She states that she did have 1 episode of post tussive emesis last night. She denies any dysuria hematuria urinary urgency or frequency denies any headache dizziness or lightheadedness. She states that she has been taking the amoxicillin that she was prescribed since Saturday but she has to cut those tablets at a time. She has no other concerns at this time. Review of Systems Constitutional symptoms: No fever, no chills, no sweats, no weakness, no fatigue. Skin symptoms: No rash, no pruritus, no abrasions. Eye symptoms: Vision unchanged. ENMT symptoms: Nasal congestion, no ear pain, no sore throat, no sinus pain. Respiratory symptoms: Cough, no shortness of breath, no wheezing. Cardiovascular symptoms: No chest pain, no palpitations, no tachycardia, no syncope, no diaphoresis, no peripheral edema. Gastrointestinal symptoms: No abdominal pain, no nausea, no vomiting, no diarrhea, no constipation. Genitourinary symptoms: No dysuria, no hematuria. Musculoskeletal symptoms: No back pain, no Muscle pain, no Joint pain. Neurologic symptoms: No headache, no dizziness, no altered level of consciousness, no numbness, no tingling, no weakness. Additional review of systems information: All other systems reviewed and otherwise negative. Health Status Allergies: Allergic Reactions (Selected) Severity Not Documented Avelox- No reactions were documented. Moxifloxacin- No reactions were documented. Tudorza Pressair- Vomit. Nonallergic Reactions (Selected) Severity Not Documented Lyrica- Cry. Ultram- Dizzy.. Medications: (Selected) Prescriptions Prescribed Tessalon Perles 100 mg oral capsule: 100 mg = 1 cap(s), PO, q8hr, for 7 day(s), PRN: as needed for cough, 21 cap(s), 0 Refill(s) ZyrTEC 10 mg oral tablet: 10 mg = 1 tab(s), PO, Daily, for 30 day(s), PRN: for allergy symptoms, 30 tab(s), 0 Refill(s) albuterol 2.5 mg/3 mL (0.083%) inhalation solution: 2.5 mg = 3 mL, NEB, q6hr, 25 EA, 1 Refill(s) ibuprofen 800 mg oral tablet: 800 mg, 1 tab(s), PO, q8hr, 15 tab(s), 0 Refill(s) loratadine 10 mg oral capsule: 10 mg, 1 cap(s), PO, Daily, for 90 day(s), 90 cap(s), 1 Refill(s) potassium chloride 20 mEq oral tablet, extended release: 20 mEq = 1 tab(s), PO, Daily, for 3 day(s), 3 tab(s), 0 Refill(s) predniSONE 20 mg oral tablet: 40 mg = 2 tab(s), PO, Daily, for 5 day(s), 10 tab(s), 0 Refill(s) Documented Medications Documented Cymbalta: 30 mg, PO, BID, 0 Refill(s) Flonase 50 mcg/inh nasal spray: 1 spray(s), Each Nostril, Daily, 0 Refill(s) Glucophage 500 mg or (more content not included)... Normal [facility] ED Note - Physicianon 2022 ED Note - Physician Patient: TAMIKA MYRICK Age: 62 years Sex: FEMALE : 1960 Associated Diagnoses: Bronchitis; Hypokalemia; Elevated blood pressure reading Author: Christopher CUNNINGHAM, Valente Stearns Basic Information Time seen: Date & time 09/12/2022 10:24:00. History source: Patient, EMS. Arrival mode: Ambulance. History limitation: None. History of Present Illness 62-year-old female with history of diabetes and asthma presents here to the emergency department from home via EMS with chief complaint of cough and flulike symptoms. Patient states cough body aches and cold-like symptoms started approximately 1 week ago she states fever in the last 3 days. Patient was seen by her primary care provider on Saturday of this week in regards to his cough and cold-like symptoms patient states she was treated with amoxicillin for the early stages of COPD. Patient stated he does not smoke she quit smoking over 39 years ago. She states with her history of asthma she does have inhalers and a nebulizer machine at home if needed she has been using those as scheduled. She states that she just still does not feel well cough is sometimes productive of yellow sputum or mucus. She denies any chest pain shortness of breath or difficulty breathing she denies any abdominal pain nausea vomiting or diarrhea. She states that she did have 1 episode of post tussive emesis last night. She denies any dysuria hematuria urinary urgency or frequency denies any headache dizziness or lightheadedness. She states that she has been taking the amoxicillin that she was prescribed since Saturday but she has to cut those tablets at a time. She has no other concerns at this time. Review of Systems Constitutional symptoms: No fever, no chills, no sweats, no weakness, no fatigue. Skin symptoms: No rash, no pruritus, no abrasions. Eye symptoms: Vision unchanged. ENMT symptoms: Nasal congestion, no ear pain, no sore throat, no sinus pain. Respiratory symptoms: Cough, no shortness of breath, no wheezing. Cardiovascular symptoms: No chest pain, no palpitations, no tachycardia, no syncope, no diaphoresis, no peripheral edema. Gastrointestinal symptoms: No abdominal pain, no nausea, no vomiting, no diarrhea, no constipation. Genitourinary symptoms: No dysuria, no hematuria. Musculoskeletal symptoms: No back pain, no Muscle pain, no Joint pain. Neurologic symptoms: No headache, no dizziness, no altered level of consciousness, no numbness, no tingling, no weakness. Additional review of systems information: All other systems reviewed and otherwise negative. Health Status Allergies: Allergic Reactions (Selected) Severity Not Documented Avelox- No reactions were documented. Moxifloxacin- No reactions were documented. Tudorza Pressair- Vomit. Nonallergic Reactions (Selected) Severity Not Documented Lyrica- Cry. Ultram- Dizzy.. Medications: (Selected) Prescriptions Prescribed Tessalon Perles 100 mg oral capsule: 100 mg = 1 cap(s), PO, q8hr, for 7 day(s), PRN: as needed for cough, 21 cap(s), 0 Refill(s) ZyrTEC 10 mg oral tablet: 10 mg = 1 tab(s), PO, Daily, for 30 day(s), PRN: for allergy symptoms, 30 tab(s), 0 Refill(s) albuterol 2.5 mg/3 mL (0.083%) inhalation solution: 2.5 mg = 3 mL, NEB, q6hr, 25 EA, 1 Refill(s) ibuprofen 800 mg oral tablet: 800 mg, 1 tab(s), PO, q8hr, 15 tab(s), 0 Refill(s) loratadine 10 mg oral capsule: 10 mg, 1 cap(s), PO, Daily, for 90 day(s), 90 cap(s), 1 Refill(s) potassium chloride 20 mEq oral tablet, extended release: 20 mEq = 1 tab(s), PO, Daily, for 3 day(s), 3 tab(s), 0 Refill(s) predniSONE 20 mg oral tablet: 40 mg = 2 tab(s), PO, Daily, for 5 day(s), 10 tab(s), 0 Refill(s) Documented Medications Documented Cymbalta: 30 mg, PO, BID, 0 Refill(s) Flonase 50 mcg/inh nasal spray: 1 spray(s), Each Nostril, Daily, 0 Refill(s) Glucophage 500 mg oral tablet: 500 mg = 1 tab(s), PO, BID, 0 Refill(s) Singulair 5 mg oral tablet, chewable: 5 mg = 1 tab(s), Chewed, qPM, 0 Refill(s) Symbicort 160-4.5: 2 puff(s), INH, BID, 0 Refill(s) albuterol: INH, PRN: as needed for shortness of breath or wheezing, 0 Refill(s) amoxicillin-clavulana te 875 mg-125 mg oral tablet: take 1 tablet by mouth twice a day for 10 days chlorthalidone 25 mg oral tablet: 25 mg = 1 tab(s), PO, MWF, 0 Refill(s) labetalol 200 mg oral tablet: 200 mg = 1 tab(s), PO, BID, 0 Refill(s) lisinopril 10 mg oral tablet: 10 mg = 1 tab(s), PO, BID, 0 Refill(s) omeprazole 40 mg oral delayed release capsule: 40 mg = 1 cap(s), PO, Daily, 0 Refill(s). Past Medical/ Family/ Social History Surgical history: TL - Tubal ligation ([id number]) in 1987 at 27 Years.. Family history: Emphysema of lung Mother Diabetes mellitus type II Father CA - Lung cancer Mother COPD Mother High blood pressure Mother Father Stroke Father Heart attack Father CABG - Coronary artery bypass graft Father . Social history: Social & Psychosocial Habits Alcohol 04 (more content not included)... [facility] ED Note-Nursingon 09-12-2022 ED Note-Nursing Patient arrives to the ED via [facility]. Alert and oriented X4. C/O cough. Patient reports having flu like symptoms for the past week. States symptoms have improved since last week. Reports being prescribed amoxicillin but has not taken it for a few days. Reports cough to be productive. Reports having fever previously to today. Denies taking Tylenol or ibuprofen today. Reports having inhalers and nebulizer at home. [facility] ED Patient Summaryon 023 ED Patient Summary [facility] - Emergency Department [address] [place] [id number] PATIENT DISCHARGE INSTRUCTIONS Patient Information Name: TAMIKA MYRICK Age: 62 Years Date of : 1960 [facility]: [id number] Reason For Visit: Cough; COUGH, SORE THROAT Arrival Time: 09/12/2022 10:17:29 Primary Care Physician: JUSTIN ALVAREZ Attending Physician: Milton Bhardwaj MD Comment: Visit Diagnosis: Diagnoses This Visit Bronchitis (J40) Cough ([id number]) Elevated blood pressure reading (R03.0) Hypokalemia (E87.6) The Pharmacy at [facility] is open Saturday through Saturday from 9A to 6P and Saturday and Saturday from 9A to 5P Prescription Information: If you have been given a prescription for narcotics, seek immediate medical attention if you have any difficulty breathing or any sudden status changes such as confusion and sleepiness. If you or anyone you know is experiencing suicidal thoughts, mental health, alcohol and/or drug addiction problems; contact the [facility], [facility] 25/02 Crisis Hotline -Wbra 2RDJE an [phone]. If you received any narcotics, sedation, or any other medication that causes drowsiness for the next 24 hours, unless otherwise directed: ? Do not drive a car. ? Do not operate machinery such as power tools, lawn mowers, drills, sewing machines, or stoves ? Avoid alcoholic beverages and drugs for allergies, nerves, or sleep ? Do not make important personal or business decisions or sign any legal documents With: Address: When: JUSTIN ALVAREZ [facility], [address] [place] [phone] Business (1) Within 3 to 5 days Comments: Please follow-up with your primary care provider in 3 to 5 days. Please contact their office this afternoon to schedule a follow-up appointment. You were seen and evaluated in the emergency department regards to cough and cold-like symptoms started approximately 1 week ago you had a chest x-ray basic lab work and respiratory testing completed today. He respiratory testing is negative for COVID-19 influenza and RSV. You are also mycoplasma negative. Your chest x-ray was within normal limits no signs of pneumonia. You are treated for bronchitis in addition to your amoxicillin which she will continue to take as prescribed to you until completed a prescription for prednisone, steroid 40 mg daily x5 days sent to our pharmacy here at [facility] for you in addition to Tessalon Perles 1 tablet every 8 hours as needed for cough or cough suppressant. Your potassium was slightly low at 2.9 this will be replaced with 20 meQ of oral potassium daily x3 days. Continue to monitor your symptoms continue your inhalers and nebulizer treatments as needed you should return here to the emergency department develop any cough shortness of breath difficulty breathing or for any other worsening or concerning symptoms. Medication Information: The exam and treatment you received today in the [facility] Emergency Department were for an urgent problem and are not intended as complete care. It is important for you to follow up with a doctor, nurse practitioner, or physician?s video library assistant for ongoing care. If your symptoms become worse or you do not improve as expected and you are unable to reach your usual health care provider, you should return to the Emergency Department, we are available 24 hours a day. For those patients who have received Radiology results, the interpretation of your X-ray as given to you by our Emergency Department physician is only a preliminary report. The Radiologist will review your films and if there is a change in the diagnosis you will be notified by phone. Please make sure you have provided a working phone number so we can reach you if necessary. In the event that you had a lab culture while you were a patient in the Emergency Department, you will be notified by phone if there is a need to change your antibiotic. Please make sure you have provided a working phone number so we can reach you if necessary. [facility] Emergency Department has provided you with a complete list of medications post discharge. Please inform your primary school principal/provider of your visit and for further instruction on these medications. Any specific questions regarding your chronic medications and dosages should be discussed with your primary care physician(s) and/or pharmacist. New Medications [facility], [address] [place] [phone], [phone] benzonatate (Tessalon Perles 100 mg oral capsule) 1 cap(s) Oral Every 8 hours as needed as needed for cough for 7 Days. Refills: 0. potassium chloride (potassium chloride 20 mEq oral tablet, extended release) 1 tab(s) Oral every day for 3 Days. Refills: 0. predniSONE (predniSONE 20 mg oral tablet) 2 tab(s) Oral every day for 5 Days. Refills: 0. Additional medications on your home medication (more content not included)... Normal [facility] Extra Greenon 09-12-2022 Tube Collected Yes Invalid Interpretation Code [facility] Comment on above: Performed By: #### 7 [id number] ####[facility] (DEFAULT)[address] [place] [id number] Lactic Acidon 09-12-2022 Lactic Acid 8.5 mg/dL Normal 4.5-19.8 [facility] Comment on above: Performed By: #### 2 [id number] ####[facility] (DEFAULT)[address] [place] [address] Mycoplasma pneumoniae IgMon 09-12-2022 Internal Control Pass Normal [facility] Comment on above: Performed By: #### 7 [id number] ####[facility] (DEFAULT)[address] [place] [address] Mycoplasma IgM Negative Normal Negative [facility] Comment on above: Performed By: #### 7 [id number] ####[facility] (DEFAULT)[address] [place] [address]7467 XR Chest 2 Viewson 3 XR Chest 2 Views EXAM: XR Chest 2 Views HISTORY: cough x 1 week, 3 days of fever COMPARISON: 06/26/2021 TECHNIQUE: PA and lateral views of the chest. FINDINGS: The cardiomediastinal silhouette is normal. No focal consolidation is identified. There is no pneumothorax. No pleural effusion is noted. The osseous structures are intact. IMPRESSION: No acute cardiopulmonary process. Final Dictated by: Jovani Rodriguez MD Dictated DT/TM: 09/12/22 10:56 Signed (Electronic Signature): Jovani Rodriguez MD 09/12/22 10:57 a Technologist: Sommer SAL [facility] Coding Summaryon 06-18-2022 Coding Summary HTMLBase 64 AsodllmpMCx0tGa+PGhlY WQ+VG0KVNWjE28prLFerG 0IN7sWOM5PIHEXYVLBJP9 AIB4usGE0DLjfL5YmavSb OiqtzIWxBB02IAf8ERS1n WceGHbjuJ0peKTuE7o9Gc OrES66qW57VYlmMEMmNcO 3LjZpbjsgbWFy Y5phWwIwsGZwAlx+PHRhY mxlIHdpZHRoPScxMDAlJy CgyDacKM4cHs8qUJVzLBZ vbGxhcHNlOiBj v9zeOXAfJXgrNE8zeUmvV 9NmgVA6XOKkn1u7De61mT I+ACFbJGK5qWqmRUlyv52 3LuQif2fpHAI5 sKFuBAtpATR8C22wg1Z9N AByVEKaWJC5wPU5uS0lzJ uhklcxS3KyjNAbInV5ZAR 2eEFdmJ0duLkg iaoaoQ8uQkf+K65ARZ4AQ LFODG0PFrq8N5MgTonkaH I+TV13ZEUjKB99fEKobSR fq7qxyKz4ZkPv WVGfKOD8zSikOFxeo4PcX JXyA62blFOtt1Y5HYGloL ortOTqDoBfvGK7aV2dWZi skofrq7mzsjvn Mfpie8zvux10dC90T61dY TbcTNYoRAZ7LJLeFUPldE phgv8huC0eUi1+ZMylr3p so6neuOv5WmNc KUUvktCabHddNGD3e9JfF q40R6SzxEbsm8IeBan1jk 42aTLny7Q9rKY7PLwyROB dcF3wBDraDkF5 PMFmSeDemR00yOLpMBkoJ b3gkFemwOueGT4nBHBjfb qcZTPuuD3iJNPwiIAcqHt vGN6jZCTutwpm y644CbQnELU9SJDagMPoC 6PcwJ0rOgYdGAPeXNYyU6 CgyQWaACewO918RVnpZvR 9AXLcgwJjZ7Dp TZRynNwyObN1z0M6Po8Xr 6TsaxrkSWQ5JHstNJMtBt E7DkWgTiH3O0AtMwc1MJC lsRdfUU4iS4Ya YOErksjgevnjiZV3SZFsX MUaeF09cQSqGDmhKg7lk7 U0e135GLElWDYvqU74Nv8 udDogMTBwdCBU tR3jmwbds4isklxnKqLtP AKjQAw2VGv1IFPcdHrjHi VsTSY5HfJ4WBU9oXMmkT1 mdCyfqrdsjE5g Oyc+T72ywI0tAEQ1OVM4e twvGIJiucPrBM33UE88T8 RyPjwvdGFibGU+PGRpdiB oxHnzKQ7hIzRv g9doy2JmUCbiM2OeEWAcL ReyAtc6LRYaHHG9lTP2sW 1zAQNbIDevg3F2aOL5Z0S nxmAkrb4ku1ph NWWnPAbqI05aaFFqd3R7D XPttFS9LEHvrCdgSsIfbG 93Oyc+YIUhrGspv1CyHkh cz8dll4wnyNp2 VtIcYGXlzwElnJoqWAK0j 2SqOx06L56rPQufJUHzFB ZaQKPrSWQksLotfa4egE7 wIi8+PGNvbCB3 tGN1aB6mEYKtQhV3BTvvP 291YhJgbGJxXajzl2gzp7 gvwGv2ErIyDYSeiaUzpOz bRHH3n8OoHq23 D63mSAmjKASjXJQoKBQzP OWnoAsgas7kwM6wSi3+PC 0tv5picb80jC97pEM+PHR bRLQ8vUupCLko GIVddH5cSFkeSfK2CKFdM lXgtX61vJMxVTjyZh8eiA wspEgtIE2bRTYkdxsdp00 3RoSrn1pzAPEo dFWeZXoiJIC2L49td1I0V WRqYNHbPGR3rWG7cI0htY lnbjogbGVmdDsgdmVydGl nWOwpUUnlI852 IHRvcDsnPlBhdGllbnQgT sMyZNj7Y8JxJpy4JZZdcS eoGH7zhVUyZVtdZm3bxQh lzZvvIE3mSIJt vdlzu880HmFtx3jjZXSrh HLeTWwjLXM6P38bt8U0UP ViOIJhSQX9rVH6bI8luTm nbjogbGVmdDsg giDhoOjtHCazNAfwQ263P HRvcDsnPkJpcnRoIERhdG A4EI82JH83kVXce3Z8dCC 6K7XeMTEbwpoy qyeqnRV3YKMzPXBxlA65D v1iaRmnTf9cPQKwGKU3AP BuiUJlX5MmyD0wQkLfDYC aMUUgC0TcbXWz YIbrP376ZNeeDaJ9FZOzx aMpK3GcSEVczUdmEjH5a0 K3Yb3MO0V6PS24YV88hTK rt8L9iUC4I7Di GAMdhlixhgwhdNJ8LQQuR IIweL32Ik6zoRvvAu2bIQ CgNXC7ZAGusRUsP1GqhK2 yOiAjMDAwMDAw D1WuzZExQDxtC006QNfpD uC8BZVjqsCrM9ZkWCDcoG uoCoV5r6J0Hd3DJNz0CH3 8NV05nJLyn0G4 tDM3W9KyNSFcrdzlbcgbu ME2DDWbUWPboJ24It3hbB pgDu3xXZLbUCZ9QCDjbXG nM1QeaM4wExQe MKQtJVNbK4TezWKbLYqyG 825OTenQjD4DFPhgnWuO9 KyIFJijJqyCgT3j5U4Tf4 ZBKUiRT65NLX1 qON4LB26TX53U3MiBjktg GFibGU+PHRhYmxlIHdpZH RoPScxMDAlJyBzdHlsZT0 nPp8qBSLrXCCd rFycfVKeCtWry6yhMDQnG BisWW2ltKeqD6ZrnWE9QV Bqc2c6Pi34S37mU4AohIO +XCFaqWC2lOC4 qX7hPrNtXaM5UXurY304U uAujLByEjjrw8ona3ezlQ y0GsH1RMGhjgNjuGarBWA 1s5OcIe22Y64d IHdpZHRoPSIxNSUiIHZhb Zvqfn9cbI6iAs3+PGNvbC Y5dON6jG8fLjUtQrH4AGu rF938CcKcjLPs Bndmd0wqc9nmwDg0SqCuA FWjtbYfcCicTLY3d3EhMa 36V8HzcIqrv7AwUsp3mz1 1iTVlf4I9qCE2 Y1PiJCEscnzbmDUqbZxeX U9xAMMywnfsHSRmoC2cLI JiO9r4IaFiMnI7JKjkZ2I xglA6IVTwrBSr FVyhURS5X60vo9P3CWDxM QVeYJF3hUJ8eC0vuHgwrf ogbGVmdDsgdmVydGljYWw aOXihF669IVRz kVugRCHxtP0fKJLmpGUwk CdiLJ8sMUCctymzJgKRK5 KVHFZiHBLHJIURA3GhUVh LFqO3B1IjSgz2 LGJswJzwDQ2vnXLkVTvvJ c8xqDfktSxzSB3cDHNwcm gtRWVdtB3cQQQtnGXjsGf mPJ2lRYDpqguh j719HbFdSDV0BDMxxUTiK 2LlgN3mYpAbLFQlKPKmB6 QlmWQcSWgsX937RBjkKrF 5ZBQepuGuP5Nt UCChrKgjBaJ0a5E7Oo3xI U4qDo9rOJDtCY42FT63rM Jqx2X7yGX4Y1DqOUCzayr zwralgYE0RATo AKVelB86kHLuSYjhUx1zx 6X8l426RMOqODOpdA18Rz 8guAunTLYuvJNAuE4vejw sq5hkfekxVqDc YGKnFHv3VZd2QREywEywV vPsXKI0YoR5QZU6kYMbrP 0sfUupcsnroD6zEal+NTk rNLYetnK5L8Ho Nsf9XMDdeQzxNB1cbWLyC ZijEi0joFrxwTxxKC9bBB MwpykaICXbgT9gQKWboDH mnZrsVR2xHXCa ximjk054BhBnXTL6PHMlz WTeW4HcxR5lKcXvIWZrUM HmQ4XisUQuZJqqF221FBu gEzG7IFWjgmFi Z0TjPORxiCfhXxS8n6L3C v5RJU1ZSFR4A6JqYtq6WT PkyTwqQM0anNPkAHzuNr1 sbAxqbOmxYG6w BAFehtniEWHklX2aPEFka XLgbSobRM3bLVLicorqh5 73XwUuNEO0DPMbcEChL0P lkF3tIkHpAXXd HGMlM9UfaXBySFsqY150B RtcDdQ1OUHtctDgU7LyDM PnqUymFlO6e9T0Xo8VVKx vdGQ+LC85mb05 S4PdHlfbCvp5MWHxLJB7b EA1kE8hDORvBKvso7B2nA B1N7LydaWhmp3fq0pnQEU kHEmfC13eqPEs i3A1IKTdsAF4NCKymHilS vGfuV69Rzf+PGNvbGdyb3 PeGnebg2cpy4ufoAc1VfR wJSIgdmFsaWdu NMH0y0QvSl51W96aTKixI HRoPSIzMCUiIHZhbGlnbj 8phJ8oHu2+UFXqtPN1sBQ 8eQ9lTrMlJzW4 LTugB634SuYmiKXqOnbbz 3mia4nbfVr0KcEqNVQwmf EsbYpuLOL6c1VrDy89X2K bzIcbd2ZlTip8 jl52lFMle0C9sKL1P5IdO EJbwxugxIMwmRqwGZ7pQQ ExumefGDPzhJ3qJLRgA6j 0PlBgIuG0MKrb D2MxxcM0ZLDvlHFyMMThr CFBqZ7isokrh2xmqyqlAf RfJRYyOSc3GGq5OBRizQd iKjFdGPI6YxX6 BKU7jHVjeD2bnHxkwdphi G9wOyc+OGg5m1pgbSDwJP 1tpKM2XO49TL15uYGya2J 5sVJ5B0KvIDEs mwcbskmdvDG2MHPvZZCqg M80Bb7naJrgNq6wLKTuWP I0HNEivYRyV5WaeB5eIdJ hBXRbMMWdZ0Xp lWXbLOjrC775LEskZsC5G IRmzuOrL8DxDXIhzXouNj Z4t0Q3Lv9ILU12EU36HC6 1qKSgo6P0dSQ9 T9JyBPMohpwdezhbdVJ5A XEkQTKecA92Tv8xkMqqOk 8hRFEnMOC9ZQUsgOPgU4C oqK8qKuFwLQBp LURqM0MejCBsAXpjM542Z PjvMjX4DYUiunKpO2ErTB KlaXftWcO4w6T2Mm0JLk9 0TU66QI53oKCr v4K3nZW2I2WvLMRpcvids yiehLX0VTYhZRCblF42Zz 6efCjaIi7xXEXeFLP2WPE riMPgM6OpgX2j VnFaRSKzXEZcR2LjmGDhD RcfW471CPxrKiU1UKFezt RzV1IlDTRvwZqqPyF1y2Y 5Vg3DFYudoyq3 I3CnSowxtZS+BB21MEFzH W88sARmnPItc9czuPa1Wp KvWXOnABF8tStnQIuug2L jPYVyL18jeYXz c2U (more content not included)... [facility] Provider Orderson 06-18-2022 Provider Orders [id number]. [id number] [facility] XR Knee 3 Views Lefton 06-15 XR Knee 3 Views Left EXAM: XR Knee 3 Views Left INDICATION: knee pain COMPARISON: None. TECHNIQUE: Radiographs as described above FINDINGS/IMPRESSION: Mild medial compartment joint space narrowing. Tricompartmental osteophytes. No joint effusion. Final Dictated by: Taiwo Bill MD Dictated DT/TM: 06/15/22 7:41 Signed (Electronic Signature): Taiwo Bill MD 06/15/22 7:42 pm Technologist: LOU MATHIS [facility] Miscellaneous Testing LCon 0 05-03-2022 [facility]. Test Result LC COMMENT Invalid Interpretation Code [facility] Comment on above: Result Comment: Test Ordered: [id number] Alternative Pathway Activity Alternative Pathway (AM50) 134 Units/mL [facility] Reference Range: 77-159 This assay is used for clinical purposes and was developed, and its performance characteristics determined, by [facility] at [facility]. It has not been cleared or approved by the U.S. Food and Drug Administration. The FDA has determined that such clearance or approval is not necessary. This laboratory is certified under the Clinical Laboratory Improvement Amendments of 1988 (CLIA-88) as qualified to perform high complexity clinical laboratory testing. Performed At: [address] [id number] Merline Jarvis PhD Ph:[phone] Performed At: [facility] [id number] [place], [place] [id number] Elio Orellana [facility] Ph:[phone] Performed By: #### 1 [id number] #### [facility] (DEFAULT) [address] [place] [address] Pneumococcal Ab (23 Serotype ) LCon 04-24-2022 Pneumococcal Ab Type 1* LC 0.4 ug/mL Low >1.3 [facility] Comment on above: Performed By: #### 1 [id number], [id number] #### [facility] (DEFAULT) [address] [place] [address] Pneumococcal Ab Type 12 (12F)* LC 0.6 ug/mL Low >1.3 [facility] Comment on above: Performed By: #### 1 [id number], [id number] #### [facility] (DEFAULT) [address] [place] [address] Pneumococcal Ab Type 14* LC 1.3 ug/mL Low >1.3 [facility] Comment on above: Performed By: #### 1 [id number], [id number] #### [facility] (DEFAULT) [address] [place] [address] Pneumococcal Ab Type 17 (17F)* LC 0.4 ug/mL Low >1.3 [facility] Comment on above: Performed By: #### 1 [id number] #### [facility] (DEFAULT) [address] [place] [address] Pneumococcal Ab Type 19 (19F)* LC 1.7 ug/mL Invalid Interpretation Code >1.3 [facility] Comment on above: Performed By: #### 1 [id number], [id number] #### [facility] (DEFAULT) [address] [place] [address] Pneumococcal Ab Type 2* LC 1.6 ug/mL Invalid Interpretation Code >1.3 [facility] Comment on above: Performed By: #### 1 [id number], [id number] #### [facility] (DEFAULT) [address] [place] [address] Pneumococcal Ab Type 20* LC 0.2 ug/mL Low >1.3 [facility] Comment on above: Performed By: #### 1 [id number], [id number] #### [facility] (DEFAULT) [address] [place] [address] Pneumococcal Ab Type 22 (22F)* LC 0.2 ug/mL Low >1.3 [facility] Comment on above: Performed By: #### 1 [id number], [id number] #### [facility] (DEFAULT) [address] [place] [address] Pneumococcal Ab Type 23 (23F)* LC 0.3 ug/mL Low >1.3 [facility] Comment on above: Performed By: #### 1 [id number], [id number] #### [facility] (DEFAULT) [address] [place] [address] Pneumococcal Ab Type 26 (6B)* LC 1.6 ug/mL Invalid Interpretation Code >1.3 [facility] Comment on above: Performed By: #### 1 [id number], [id number] #### [facility] (DEFAULT) [address] [place] [address] Pneumococcal Ab Type 3* LC 0.5 ug/mL Low >1.3 [facility] Comment on above: Performed By: #### 1 [id number], [id number] #### [facility] (DEFAULT) [address] [place] [address] Pneumococcal Ab Type 34 (10A)* LC 0.2 ug/mL Low >1.3 [facility] Comment on above: Performed By: #### 1 [id number], [id number] #### [facility] (DEFAULT) [address] [place] [address] Pneumococcal Ab Type 4* LC 0.2 ug/mL Low >1.3 [facility] Comment on above: Performed By: #### 1 [id number], [id number] #### [facility] (DEFAULT) [address] [place] [address] Pneumococcal Ab Type 43 (11A)* LC 0.3 ug/mL Low >1.3 [facility] Comment on above: Performed By: #### 1 [id number], [id number] #### [facility] (DEFAULT) [address] [place] [address] Pneumococcal Ab Type 5* LC 1.1 ug/mL Low >1.3 [facility] Comment on above: Performed By: #### 1 [id number], [id number] #### [facility] (DEFAULT) [address] [place] [address] Pneumococcal Ab Type 51 (7F)* LC 0.2 ug/mL Low >1.3 [facility] Comment on above: Performed By: #### 1 [id number], [id number] #### [facility] (DEFAULT) [address] [place] [address] Pneumococcal Ab Type 54 (15B)* LC <0.1 Low >1.3 [facility] Comment on above: Performed By: #### 1 [id number], [id number] #### [facility] (DEFAULT) [address] [place] [address] Pneumococcal Ab Type 56 (18C)* LC 0.2 ug/mL Low >1.3 [facility] Comment on above: Performed By: #### 1 [id number], [id number] #### [facility] (DEFAULT) [address] [place] [address] Pneumococcal Ab Type 57 (19A)* LC 0.7 ug/mL Low >1.3 [facility] Comment on above: Performed By: #### 1 [id number], [id number] #### [facility] (DEFAULT) [address] [place] [address] Pneumococcal Ab Type 68 (9V)* LC 0.9 ug/mL Low >1.3 [facility] Comment on above: Performed By: #### 1 [id number], [id number] #### [facility] (DEFAULT) [address] [place] [address] Pneumococcal Ab Type 70 (33F)* LC 0.3 ug/mL Low >1.3 [facility] Comment on above: Result Comment: *Thi s test was developed and its performance characteristics determined by [employer]. It has not been cleared or approved by the U.S. Food and Drug Administration. Performed At: [facility] [id number] [id number] Jose Carlos Tavarez PhD Ph:[phone] Performed By: #### 1 [id number], [id number] #### [facility] (DEFAULT) [address] [place] [address] Pneumococcal Ab Type 8* LC 0.3 ug/mL Low >1.3 [facility] Comment on above: Performed By: #### 1 [id number], [id number] #### [facility] (DEFAULT) [address] [place] [address] Pneumococcal Ab Type 9 (9N)* LC 0.2 ug/mL Low >1.3 [facility] Comment on above: Performed By: #### 1 [id number], [id number] #### [facility] (DEFAULT) [address] [place] [address] Immunoglobulins A/E/G/M, Ser um LCon 04-22-2022 IgE Total LC 106 IU/mL Invalid Interpretation Code 6-317 [facility] Comment on above: Result Comment: Perf ormed At: [facility] [address] [id number] Ruben Elias MD Ph:[phone] Performed At: [facility] [address] [id number] Merline Jarvis PhD Ph:[phone] Performed By: #### 4 [id number] #### [facility] (DEFAULT) [address] [place] [address] Immunoglobulin A, Qn, Serum LC 167 mg/dL Invalid Interpretation Code 70-057 [facility] Comment on above: Performed By: #### 4 [id number] #### [facility] (DEFAULT) [address] [place] [address] Immunoglobulin G, Qn, Serum LC 601 mg/dL Invalid Interpretation Code 132-4330 [facility] Comment on above: Performed By: #### 4 [id number] #### [facility] (DEFAULT) [address] [place] [address] Immunoglobulin M, Qn, Serum LC 60 mg/dL Invalid Interpretation Code 26217 [facility] Comment on above: Performed By: #### 4 [id number] #### [facility]) [address] [place] [address] Coding Summaryon 04-19-2022 Coding Summary [employer]Base 64 XwxcmvblYYs4cFb+PGhlY WQ+SI1ELEAmG84qrEEbzV 3FX6aWUW4GCSGJVVTGJD3 OKK2bvEX6VXfkT6QnjyPt TfsurYKwOV60ZYf6NVR4f YerYTflwE9ukWYqR3n6Np QyWJ26mF27MUgzMNCuJqD 3LjZpbjsgbWFy L5yiTeVzfKFoRkt+PHRhY mxlIHdpZHRoPScxMDAlJy IekMqtCS0aKn8zJYIiIYF vbGxhcHNlOiBj n9zrVYNyVLxxHL5pmEcxN 9YvzFO5CLUok9t6Ln05vE I+MZDwNOY9aAiiRXvbp75 0SdSjw8taDAR3 uEXpDXozYHB8X71jc9Y9U VCaGTHxMZN2pEA3yE5dpM drjdpaA8ApeFGiYmJ8GCG 5xJKfzC1paPyd cngsoJ1aBcd+D77JZR7WQ UNDOH9OVkc8F0WzKuodpF I+HD86QANqIP03uSOlaGK lg6swfEd6VdKm OJAhBOQ8zXhxLCuuo5RvS RSsF16wzJUjw5L1MLQltB xkbZSuTgFrxWE0iS6bZIa vulpts1vshroy Kjjnb0udxi17tZ73T12oB GjwWZIgCDM8HWEdYTTztS tnfw9zaN9vBy7+VRpln5r se1lsbQc5FrAq FMFchiZssKwlXHT2e8BoL p82R2WpgTgjk3BzMnl4ru 25qFDmh8G0cVB2JAqmQGO dwJ3cGXstRgV0 EMZlLsWhrC23vLVjNFgyE l0cnNmpsWsbBU9rUDGkws yvPBRnuO7rLAPrlFGdpLd rVN5uOGIbrwlk d904UiOoSEY0SYNhxFKuD 8XzrP4lRvFvSBAdYRNvM7 BisGZrUIfjP062EPwpXkV 3HDBxjkQuP1Zp SQEyzNwdNmT3f4V3Nn5Zx 2CicultPNG8BNbaQSV1Kx G6GlHxLwI6C3UrRbx9WID rtObuIP1hX9Lt LIQqrpbbrxlvgGC3PLDyY QDdhO06yDInUXidWk8bq2 I7f056VGBiZZZphV37Hh5 udDogMTBwdCBU mC5amugbv2vmsoshWvXbP RMsUBw5HMk0HGStlFzhOo ZcRTP0ZgY3WAI2nQOogF3 anEwfzyhmxG6p Oyc+R66orQ6vRFI1GLF9b oocNTKfcbWiQU00XR82O6 RyPjwvdGFibGU+PGRpdiB ezDhgPN9sZyKa y9ttz7IiFJnlW4AfEQKrW LtqHty5VLZgEQH5bHY6jH 5eIUIkGQggx4X2kGN0I2O lhyHeyv2hs4em YQEuPZesT42qbGJcj5M4G NJciIX7REOeyPcwSbSdjJ 93Oyc+ZXRjqKiep1QvAig bv5rvb6toqBk1 MgNdWFNevoWgyDajLHG2r 6KwBo12U88lFBdaYIUnXN VnTHGoGBTrdOzqxa6lkR3 wIi8+PGNvbCB3 zSS7aJ7bKFMgHwV1RGmxI 552UoXtsYIqKfrwo1hiz0 wcvLu7FaVfFANnozQylLe jUJP1r4LsQd76 Z94aSInyNXJrXFMoONNsI HUjlJnqgt3mqZ3uGc6+PC 8vx6pmre92jU07cMN+PHR kMDU0oIadIUig NFRknC3vWWtrXfC3RCNcT uDuqC28rEWiWBdsZf1cgG lixZcgQJ3uXKZornuiq27 1HjPbq6mpTMAq aXYpQBpxWIZ8V90px9P3G GSgDILnYJH3yXY4dB7yfJ lnbjogbGVmdDsgdmVydGl pGChqNTpmO706 IHRvcDsnPlBhdGllbnQgT oXpTEy6I6OaXzg8UPKbxX kmNK6wrLPgVGcrAu7fiSm mlDcyIA8lLLSi eaqka888AyZzl2myFDQbs KIlAXtjRYT3L25wz5U8HK VjVDFnMNF3oHC4yU8nzGv nbjogbGVmdDsg xmUtcAgxWLtqMSqbV028M HRvcDsnPkJpcnRoIERhdG K2UC32IJ34hALcs6W4qEU 5Z6QaXWVzrcys fuxhqDT6YBXqKQCquR98Z i0gnRmoYp1qHVLlAZG3NF GfxJXqZ6EyaE4ePjRbAHC eWOReR0PgbHPa XYayR650YQrpQlR5IKAed zYzF0UpUZRqmFiyLaL8v7 E7Pb0CL8Z8OD28BI85vXE ym6W5jMA5P7Yx YRVdsneboetcgTG1BRVcD TPyuE66Md3yyXuzPf0yIJ SmTEQ3LAPqhIZpP8CxpU5 yOiAjMDAwMDAw K6UxjXDpDHtgE640YCiwZ pR1DAVdvvFxU1JaSJQunZ ijUoK2x4L7Js0LMSs6PD4 0BN58iFBxr4X1 lDL3R4GuIGBzbpxkuwtnn YX9YHJjXOAcjC49Xe6slD fpOf6nQYReZOW1CEWuzRX mG4IibT9fRpSa GIRtYJClG6TagAYtLAfxS 975VAnsVmD1CXHnuhKvH7 VmIRTmhYnaKyA3u0J2Kg2 XLMZjAW17LNF4 cOY1RZ17FG79Q3VfMifoz GFibGU+PHRhYmxlIHdpZH RoPScxMDAlJyBzdHlsZT0 vGp4eAVOsSEDl xKtuqNWpGrCuy9nuDGYqJ UqcSF1aeMfhI6CgyOH0XQ Cez6z7Ve90J00bK8DdbNW +ZZZacZY3xQW9 tY7gOaMdQaW1SHeqT179P vMhvJEyEaoqg5mza5dxsH s9KpT4ZFAhalNxxGekYSA 5r5QcZq31G57a IHdpZHRoPSIxNSUiIHZhb Cxzum4anJ6eJt3+PGNvbC N6eAX4fF4jPwJgJvB2NIj jT979XgLvzZJj Xkhsg8lay8qscIa7SjWaS ADzxsNfaRkcAWJ1x6GzXo 06Z1SgwMfkt3BeRbq7st8 5mQZvu2J5uIV8 X7WpZFHrtfpieFQhrZxdZ N4iFCAdqagdKYYnhY7gQS HaL7c0FzYgRrM5IDscM6A wvoA6MKTbsHSp GEjmXDK7Q50kv3O5PGRoC KVrKUT1sMO2qZ2irYgizq ogbGVmdDsgdmVydGljYWw mBJduI181RXMi qLiuHNGwdC5jFRZfqDGlu VwoQN5eKKFzfsdpGrIQI3 XYBONrSKEBFAXNV2QsTHm DBoK5K8ZjPpb9 SFSptXclPW0igMHmALniQ z9jbOombRmlRH2cNPVjmv sdQVUaqW0dKLVlrEIohBg mMF6qEDNftgcc v067TvWnWEJ7QHCtdJTmR 1FaxC8dDrOaVBUgRUJmQ2 QpsLDhTTzeS925OYewLkP 5EUXlwbXiP9Bp SUDjqZszFnE3z5A5Bx6jP V2bNi9wHCKtEN15BQ37oO Ege1O2yRX8T7MgDVOomeb nqdamoEL8KYQy OWNjoN17cXZcJIbaDm3zm 0N2v567VCDqIHYjrA08Xg 4xoAiiREPyjWNLdF3ikfd xa0jkakzsAhDj UWPlZUk8WQo9RJRbpUolV vRiZSW3PoM7SNM1vYIvzJ 9lhVfppiropD8lUqs+NTk cRKItepZ6L5Et Vvr4FXYjrHymHD3pySWvW BwgGf1dcPbqnAbjEO0tLY TlbwlpNCKmzU5tMRItqTP sfQfdFF8zLJGi mmdug656BpMtGKP7RDBfw HOkL4ZxzQ4aAbHcTGUjHZ GxF4KemDXbDHqiD112YBb sDrV9PAQjxuGk A7ObETBjzHgbWaE9p0O3E u1UFB8GQTO1C4CtHta4LX CvfRoeLO8wlYNcHTovWn3 trCwmtHxzBE9d UKCkitbyHSBytW5pFSSrl RNxnCxeNL2oHFKigspef6 68HfGgCKM4YEOczJCdA9F ytF7rDbCzMDZi LIUpA4IsdVZhXEvkR141I CmzHlQ6DJYvoyGhP6HwYT HuuBkdUqN1n9D4Fv2PHGi vdGQ+BC19lh54 E5RuDxeoImo3JIPpNGP4t SF6qK1jUKBjXNwus2V2wF T4D4RsnnQkfn9ca4ovRSY eQKftI94njHWs u0A6SKKmpZY4KSXjyRdjM wOsoU00Lkq+PGNvbGdyb3 KlVrqyk8ycu9dmpZr2ClS wJSIgdmFsaWdu XSQ4b0RgCj45V60rANslM HRoPSIzMCUiIHZhbGlnbj 0pbS5oNi9+NJRqjFR6nBY 7qH3xYoKfKjS3 TNlfV566JeKkgQMaQfnfv 6mss5ilgZf3IpEvUGIdyh CboDirEFW1q4KbYg91S2T utMegy9EpGea9 pn36gNQuo0J4hRF0S5BvR IRyquiymHWlhCdwVS6uRM XncrknILBhaE2kOWEuP3z 3OkDmGnW2WKsj K1QsfnL4NGOexZNtYYQuk YWMcN6gmofgx2xnjsylNa AnTNPwVPl7QTl3OZGcjTy dXxVxCEU1HaC7 ZFK5iWYbdE6wzAxqvyuzb G9wOyc+KEc0b5hwpYAwEK 3ycXZ8JR31QD89vKAhb8V 2yAP4U3HjGMPx iaaophtwnNS5MFOoVKMuu L26Kk3esCtbAe9mGXGdFQ F1SPNacJJuB7JnuI1lFuX rPPWvHJGhW5Jq oWOeQIswN744WVscKwB7J OKxhcSnJ0HmLCSazDzpTc O8v4M8Wl6WGC71QY69IE6 0jEVju7U5tXN5 G6RpQKKyjdrfkrtkwSJ5L NTrUKDbkX91Es8orBguQh 3tMDHcILX0DYAejTSkB1A ggR9jLjFmSCYo XYJgD8KvcUBbSYvoF986K BasSzB4SSNotgDfP1CcSD WdeJwoZoA7l8S1Qf9YHp7 1IC66NZ87zAXn w8Q9hGA3F6YxQUFmszkwe vixyCX4REXeIDEkbI34Af 4arRkjQy5kMEEjBDT2HIV ksNEvQ5AvjA5b FuOqUNVxKSKpT2IxpMKkD AdiQ753XQtzHcU4YUVnup VtA4XzGXTdhQasVsB5r4E 0Xl4ESPiupit2 Y7OmOqidhAP+FC69TMHcV P38hBPdyZHxb7rfwTt0Iz LeGMUyHKM2zWytDEntl6Z tBZQmW99nnHAr c2U (more content not included)... Normal [facility] Miscellaneous Testing LCon 0 04-19-2022 Misc. Test Result LC COMMENT Invalid Interpretation Code [facility] Comment on above: Result Comment: Test Ordered: [id number] Mannose Binding Lectin (MBL) Mannose Binding Lectin (MBL) 140 ng/mL Low: 0 - 50 Intermediate: 51 - 500 Normal: >500 This test was developed and its performance characteristics determined by [email or web address]. It has not been cleared or approved by the Food and Drug Administration. Performed At: [address] [id number] Merline Jarvis PhD Ph:[phone] Performed At: [address] [id number] Ruben Elias MD Ph:[phone] Performed By: #### 1 [id number], [id number] #### [facility] (DEFAULT) [address] [place] [address] Provider Orderson 04-18-2022 Provider Orders [id number] Normal [facility] Miscellaneous Testing LCon 0 04-17-2022 Test Code LC 730654 Invalid Interpretation Code [facility] Comment on above: Performed By: #### 1 [id number] #### [facility] (DEFAULT) [address] [place] [address] Test Name LC ALTERNATE PATH Invalid Interpretation Code [facility] Comment on above: Performed By: #### 1 [id number] #### [facility] (DEFAULT) [address] [place] [address] Test Code LC 004357 Invalid Interpretation Code [facility] Comment on above: Performed By: #### 1 [id number], [id number] #### [facility] (DEFAULT) [address] [place] [address] Test Name LC MBL Invalid Interpretation Code [facility] Comment on above: Performed By: #### 1 [id number], [id number] #### [facility] (DEFAULT) [address] [place] [address] Q - CULTURE,AEROBICon 2021 Bacteria identified Cx Nom (Unsp spec) SEE NOTE Normal [facility] Plastics Scientist Comment on above: Order Comment: [facility] performed at: [facility] [place], [address] [facility], [address] [place] [address], [id number], Transportation Technician: Rafa Bergeron MD [facility] Collection Date/Time: [facility] Results Received Date/Time: [facility] Reported Date/Time: Result Comment: CULT URE, AEROBIC BACTERIA Micro Number: [id number] Test Status: Final Specimen Source: Nose Specimen Quality: Adequate Result: Growth of skin katerin (note: Growth does not include S. aureus, beta-hemolytic Streptococci or P. aeruginosa). Performed By: #### 6 [id number] #### [facility] Default [address] [place] [id number] Maxillofacial w/o Contras ton 05-07-2020 CT Maxillofacial w/o Contrast Exam Date/Time: 05/05/2020 13:01 EDT Reason for Exam: Chronic pansinusitis Report IMPRESSION: NO EVIDENCE OF SINUSITIS. EXAM: CT Maxillofacial w/o Contrast CLINICAL HISTORY: Headache Chronic pansinusitis COMPARISON: NONE. TECHNIQUE: Unenhanced images were obtained through the paranasal sinuses in the axial plane with coronal and sagittal reformats. Imaging provided for surgical planning. FINDINGS: Maxillary sinuses: Minimal mucosal thickening in the floor the left maxillary sinus.. Sinus outflow tracts are patent Ethmoid sinuses: Ethmoid sinuses are clear. Sphenoid sinuses: The sphenoid sinuses are normally aerated. Sphenoethmoid recesses are patent. Frontal sinuses: The frontal sinuses are normally aerated. Frontal recesses are patent. Nasal fossa: No septal deviation. Mónica bullosa involving the right middle nasal turbinate. All CT scans at this facility use dose modulation, iterative reconstruction, and/or weight based dosing when appropriate to reduce radiation dose to as low as reasonably achievable. FINAL REPORT Dictated: 05/07/2020 6:07 am Ronny Cruz MD Signed (Electronic Signature): 05/07/2020 6:07 am Signed by: Ronny Cruz MD Transcribed by: ANITHA Technologist: KEVON [facility] Coding Summary.on 05-06-2020 Coding Summary. CODING DATE: 05/06/2020 FINAL [facility] STATUS: Home (Routine DC) PAYOR: Medicare APC DESCRIPTION 5522 Level 2 Imaging without Contrast ADMIT DX: REASON FOR VISIT DX: J32.0 Chronic maxillary sinusitis FINAL DX: PRINCIPAL: J32.0 Chronic maxillary sinusitis SECONDARY: PYMT PROC APC STAT DESCRIPTION DOCTOR NAME DATE NOTE: The code number assigned matches the documented diagnosis and / or procedure in the patient's chart. However, the narrative phrase printed from the coding software may appear abbreviated, or result in slightly different terminology. Coded By: Loren Griffin CphT Date Saved: 05/06/2020 11:44 am [facility] Consent for Treatmenton Consent for Treatment [id number] .[id number]:127 [facility] Physician Orderon 03-21-2020 Physician Order [id number] .[id number]:127 [facility] Encounters Encounter Date Encounter Type Care Provider Facility Start: 08-20-2023 End: 08-21-2023 ambulatory KISHA CASTELLANOS Not Available Start: 08-15-2023 End: 08-15-2023 ambulatory KISHA CASTELLANOS Not Available Start: 01-25-2023 End: 01-25-2023 Emergency department patient visit Whitney Nick Garces Facility:[facility] Start: 09-22-2022 End: 09-23-2022 ambulatory Nadine Colon Facility:[facility] Start: 09-12-2022 End: 09-12-2022 Emergency department patient visit Valente White PA-C Facility:[facility] Start: 09-12-2022 End: 09-13-2022 ambulatory Valente White PA-C Facility:[facility] Start: 06-15-2022 End: 06-16-2022 ambulatory JUSTIN ALVAREZ Facility:[facility] Start: 04-18-2022 End: 04-18-2022 ambulatory JUSTIN ALVAREZ Facility:[facility] Payers Date Payer Category Payer Private Health Insurance [id number] 2022 Medicare [id number] 2022 Medicare [id number] 2022 Unknown [id number] 1960 Unknown [id number] 2.16.8 [id number] 1960 Unknown [id number] 2.16.8 [id number] 1962 Unknown [id number] 2.16.8 [id number] 1962 Unknown [id number] 2.16.8 [id number] 1962 Unknown [id number] 2.16.84 [id number] 1962 Unknown [id number] 2.16.84 [id number] 1962 Unknown [id number] 2.16.84 [id number] 1962 Unknown [id number] 2.16.84 [id number] Clinical Note 01-25-2023 Note Date & Type Note Facility 01-25-2023 Note Education Materials Dermatology Contact Dermatitis Dermatitis is redness, soreness, and swelling (inflammation) of the skin. Contact dermatitis is a reaction to something that touches the skin. There are two types of contact dermatitis: ? Irritant contact dermatitis. This happens when something bothers (irritates) your skin, like soap. ? Allergic contact dermatitis. This is caused when you are exposed to something that you are allergic to, such as poison kwesi. What are the causes? ? Common causes of irritant contact dermatitis include: ? Makeup. ? Soaps. ? Detergents. ? Bleaches. ? Acids. ? Metals, such as nickel. ? Common causes of allergic contact dermatitis include: ? Plants. ? Chemicals. ? Jewelry. ? Latex. ? Medicines. ? Preservatives in products, such as clothing. What increases the risk? ? Having a job that exposes you to things that bother your skin. ? Having asthma or eczema. What are the signs or symptoms? Symptoms may happen anywhere the irritant has touched your skin. Symptoms include: ? Dry or flaky skin. ? Redness. ? Cracks. ? Itching. ? Pain or a burning feeling. ? Blisters. ? Blood or clear fluid draining from skin cracks. With allergic contact dermatitis, swelling may occur. This may happen in places such as the eyelids, mouth, or genitals. How is this treated? ? This condition is treated by checking for the cause of the reaction and protecting your skin. Treatment may also include: ? Steroid creams, ointments, or medicines. ? Antibiotic medicines or other ointments, if you have a skin infection. ? Lotion or medicines to help with itching. ? A bandage (dressing). Follow these instructions at home: Skin care ? Moisturize your skin as needed. ? Put cool cloths on your skin. ? Put a baking soda paste on your skin. Stir water into baking soda until it looks like a paste. ? Do not scratch your skin. ? Avoid having things rub up against your skin. ? Avoid the use of soaps, perfumes, and dyes. Medicines ? Take or apply satu-cqm-vylqxon and prescription medicines only as told by your doctor. ? If you were prescribed an antibiotic medicine, take or apply it as told by your doctor. Do not stop using it even if your condition starts to get better. Bathing ? Take a bath with: ? Epsom salts. ? Baking soda. ? Colloidal oatmeal. ? Bathe less often. ? Bathe in warm water. Avoid using hot water. Bandage care ? If you were given a bandage, change it as told by your doctor. ? Wash your hands with soap and water before and after you change your bandage. If soap and water are not available, use hand ordinary seaman. General instructions ? Avoid the things that caused your reaction. If you do not know what caused it, keep a journal. Write down: ? What you eat. ? What skin products you use. ? What you drink. ? What you wear in the area that has symptoms. This includes jewelry. ? Check the affected areas every day for signs of infection. Check for: ? More redness, swelling, or pain. ? More fluid or blood. ? Warmth. ? Pus or a bad smell. ? Keep all follow-up visits as told by your doctor. This is important. Contact a doctor if: ? You do not get better with treatment. ? Your condition gets worse. ? You have signs of infection, such as: ? More swelling. ? Tenderness. ? More redness. ? Soreness. ? Warmth. ? You have a fever. ? You have new symptoms. Get help right away if: ? You have a very bad headache. ? You have neck pain. ? Your neck is stiff. ? You throw up (vomit). ? You feel very sleepy. ? You see red streaks coming from the area. ? Your bone or joint near the area hurts after the skin has healed. ? The area turns darker. ? You have trouble breathing. Summary ? Dermatitis is redness, soreness, and swelling of the skin. ? Symptoms may occur where the irritant has touched you. ? Treatment may include medicines and skin care. ? If you do not know what caused your reaction, keep a journal. ? Contact a doctor if your condition gets worse or you have signs of infection. This information is not intended to replace advice given to you by your health care provider. Make sure you discuss any questions you have with your health care provider. Document Revised: 05/07/2022 Document Reviewed: 05/07/2022 [employer] Patient Education ? 2022 [employer]. Pulmonary Medicine Asthma, Adult Asthma is a condition that causes swelling and narrowing of the airways. These are the passages that lead from the nose and mouth down into the lungs. When asthma symptoms get worse it is called an asthma attack or flare. This can make it hard to breathe. Asthma flares can range from minor to life-threatening. There is no cure for asthma, but medicines and lifestyle changes can help to control it. What are the causes? It is not known exactly what causes asthma, but cer (more content not included)... [facility] Clinical Note 09-12-2022 Note Date & Type Note Facility 09-12-2022 Note Education Materials Pulmonary Medicine Acute Bronchitis, Adult Acute bronchitis is when air tubes in the lungs (bronchi) suddenly get swollen. The condition can make it hard for you to breathe. In adults, acute bronchitis usually goes away within 2 weeks. A cough caused by bronchitis may last up to 3 weeks. Smoking, allergies, and asthma can make the condition worse. What are the causes? This condition is caused by: ? Cold and flu viruses. The most common cause of this condition is the virus that causes the common cold. ? Bacteria. ? Substances that irritate the lungs, including: ? Smoke from cigarettes and other types of tobacco. ? Dust and pollen. ? Fumes from chemicals, gases, or burned fuel. ? Other materials that pollute indoor or outdoor air. ? Close contact with someone who has acute bronchitis. What increases the risk? The following factors may make you more likely to develop this condition: ? A weak body's defense system. This is also called the immune system. ? Any condition that affects your lungs and breathing, such as asthma. What are the signs or symptoms? Symptoms of this condition include: ? A cough. ? Coughing up clear, yellow, or green mucus. ? Wheezing. ? Having too much mucus in your lungs (chest congestion). ? Shortness of breath. ? A fever. ? Chills. ? Body aches. ? A sore throat. How is this treated? Acute bronchitis may go away over time without treatment. Your doctor may recommend: ? Drinking more fluids. ? Using a device that gets medicine into your lungs (inhaler). ? Using a vaporizer or a humidifier. These are machines that add water or moisture to the air. This helps with coughing and poor breathing. ? Taking a medicine for fever. ? Taking a medicine that thins mucus and clears congestion. ? Taking a medicine that prevents or stops coughing. Follow these instructions at home: Activity ? Get a lot of rest. ? Return to your normal activities as told by your doctor. Ask your doctor what activities are safe for you. Lifestyle ? Drink enough fluid to keep your pee (urine) pale yellow. ? Do not drink alcohol. ? Do not use any products that contain nicotine or tobacco, such as cigarettes, e-cigarettes, and chewing tobacco. If you need help quitting, ask your doctor. Be aware that: ? Your bronchitis will get worse if you smoke or breathe in other people's smoke (secondhand smoke). ? Your lungs will heal faster if you quit smoking. General instructions ? Take [id number] and prescription medicines only as told by your doctor. ? Use an inhaler, cool mist vaporizer, or humidifier as told by your doctor. ? Rinse your mouth often with salt water. To make salt water, dissolve ??1 tsp (3?6 g) of salt in 1 cup (237 mL) of warm water. ? Take two teaspoons of honey at bedtime. This helps lessen your coughing at night. ? Keep all follow-up visits as told by your doctor. This is important. How is this prevented? To lower your risk of getting this condition again: ? Wash your hands often with soap and water. If you cannot use soap and water, use hand ordinary seaman. ? Avoid contact with people who have cold symptoms. ? Try not to touch your mouth, nose, or eyes with your hands. ? Make sure to get the flu shot every year. Contact a doctor if: ? Your symptoms do not get better in 2 weeks. ? You vomit more than once or twice. ? You have symptoms of loss of fluid from your body (dehydration). These include: ? Dark pee. ? Dry skin or eyes. ? Increased thirst. ? Headaches. ? Confusion. ? Muscle cramps. Get help right away if: ? You cough up blood. ? You have chest pain. ? You have very bad shortness of breath. ? You become dehydrated. ? You faint or keep feeling like you are going to faint. ? You have a very bad headache. ? Your fever or chills get worse. These symptoms may be an emergency. Get help right away. Call your local emergency services (911 in the [place] ? Do not wait to see if the symptoms will go away. ? Do not drive yourself to the hospital. Summary ? Acute bronchitis is when air tubes in the lungs (bronchi) suddenly get swollen. In adults, acute bronchitis usually goes away within 2 weeks. ? Take [id number] and prescription medicines only as told by your doctor. ? Drink enough fluid to keep your pee (urine) pale yellow. ? Contact a doctor if your symptoms do not improve after 2 weeks of treatment. ? Get help right away if you cough up blood, faint, or have chest pain or shortness of breath. This information is not intended to replace advice given to you by your health care provider. Make sure you discuss any questions you have with your health care provider. Document Revised: 06/21/2021 Document Reviewed: 02/12/2020 [employer] Patient Education ? 2021 [employer] [facility] Summary Purpose Family History No Family History Records FoundNo Family History Records FoundNo Family History Records FoundNo Family History Records Found Advance Directives No Advanced Directives Records FoundNo Advanced Directives Records FoundNo Advanced Directives Records FoundNo Advanced Directives Records Found Additional Source Comments INFORMATION SOURCE (unrecogn ized section and content) DATE CREATED AUTHOR 05/07/2020 [facility] DATE CREATED AUTHOR AUTHOR'S ORGANIZ ATION 09/08/2021 [facility] DATE CREATED AUTHOR AUTHOR'S ORGANIZ ATION 01/31/2023 [facility] DATE CREATED AUTHOR AUTHOR'S ORGANIZ ATION 08/25/2023 [facility] FOR RECORDS PERTAINING TO PATIENTS WHO ARE OR HAVE BEEN ENROLLED IN A CHEMICAL DEPENDENCY/SUBSTANCEABUSE PROGRAM, SOME INFORMATION MAY BE OMITTED. This clinical summary was aggregated from multiple sources. Caution should be exercised in using it in the provision of clinical care. This summary normalizes information from multiple sources, and as a consequence, information in this document may materially change the coding, format and clinical context of patient data. In addition, data may be omitted in some cases. CLINICAL DECISIONS SHOULD BE BASED ON THE PRIMARY CLINICAL RECORDS. [employer] provides no warranty or guarantee of the accuracy or completeness of information in this document.
[2023-10-09 14:43] LABS: Alanine Aminotransferase 21 U/L (14-59); Albumin Globulin Ratio 0.9; Albumin Level 3.2 g/dL (3.4-5.0); Alkaline Phosphatase 64 U/L (46-116); Anion Gap 7.5; Aspartate Amino Transferase 14 U/L (15-37); BUN Creatinine Ratio 14.1; Bilirubin Total 0.2 mg/dL (0.2-1.0); Calcium 8.8 mg/dL (8.5-10.1); Carbon Dioxide 27.8 mmol/L (21.0-32.0); Chloride 103 mmol/L (98-107); Estimated GFR (African America >60 (>=60); Estimated GFR (Non-African Ame 57 (>=60); Globulin 3.6 g/dL; Glucose 115 mg/dL (74-106); Potassium 3.3 mmol/L (3.5-5.1); Sodium 135 mmol/L (136-145); Total Protein 6.8 g/dL (6.4-8.2)
[2023-10-10 16:10] LABS: IgG, Subclass 1 281 mg/dL (248-810); IgG, Subclass 2 169 mg/dL (130-555); IgG, Subclass 3 38 mg/dL (15-102); IgG, Subclass 4 43 mg/dL (2-96); Immunoglobulin G, Qn, Serum 580 mg/dL (586-1602)
[2023-10-11 21:09] LABS: Anti-MPO Antibodies <0.2 units (0.0-0.9); Anti-PR3 Antibodies <0.2 units (0.0-0.9); Cytoplasmic (C-ANCA) <1:20 titer (Neg:<1:20); Perinuclear (P-ANCA) <1:20 titer (Neg:<1:20)
[2023-10-12 16:09] LABS: Aspergillus flavus Negative (Neg:<1:1); Aspergillus fumigatus Negative (Neg:<1:1); Aspergillus niger Negative (Neg:<1:1)
[2023-10-15 11:09] LABS: Immunoglobulin A, Qn, Serum 158 mg/dL (87-352); Immunoglobulin E, Total 73 IU/mL (6-495); Immunoglobulin M, Qn, Serum 72 mg/dL (26-217)
== END 2023-10-09 14:04 | disposition home or self-care (01) ==
LOC: LAB 14:10
PROVIDERS: Family Provider Internal Medicine; PCP Internal Medicine; Visit Provider Internal Medicine
DX: J45.50 Severe persistent asthma, uncomplicated (principal); J06.9 Acute upper respiratory infection, unspecified
CPT/HCPCS: 36415; 80053; 82784; 82785; 82787; 83516; 86037; 86606

== ENCOUNTER 2023-11-12 10:00 | Outpatient (OUT) | payer MEDICARE, OTHER, SELFPAY ==
--- OUTSIDE RECORDS SUMMARY | 2023-11-12 10:04 | XMS_ITS | CCD ---
Author Organization [facility] Care Team Providers Care Senior [employer] D[employer] Name Role Phone JUSTIN ALVAREZ Primary Care Unavailable JUSTIN ALVAREZ Admitting Unavailable JUSTIN ALVAREZ Attending Unavailable JUSTIN ALVAREZ Primary Care Unavailable KATHIA THORNTON Admitting Unavailable KATHIA THORNTON Attending Unavailable Whitney Garces Admitting Unavailable Whitney Garces Attending Unavailable JUSTIN ALVAREZ Primary Care Unavailable Valente White PA-C Admitting Unavailabl e Valente White PA-C Attending UnavailJUSTIN Sanchez Primary Care Unavailable Valente White PA-C Admitting Unavailabl e Valente White PA-C Attending Unavailabl e JUSTIN ALVAREZ Primary Care Unavailable Nadine Colon Admitting Unavailable Nadine Colon Attending Unavailable JUSTIN ALVAREZ Primary Care Unavailable KISHA CASTELLANOS Attending Unavailable KISHA CASTELLANOS Referring Unavailable Allergies Allergy Classification Reported Allergen(s) Allergy Type Date of Onset Reaction(s) Facility (1 source) moxifloxacin; Translations: [moxifloxacin] Drug Allergy [facility] Repository (1 source) moxifloxacin; Translations: [Avelox] Drug Allergy [facility] Repository (1 source) pregabalin; Translations: [Lyrica] Drug Allergy [facility] Repository (1 source) traMADol; Translations: [Ultram] Drug Allergy [facility] Repository (1 source) Tudorza Pressair; Translations: [Tudorza Pressair] Propensity to adverse reactions to drug (disorder) [facility] Repository Results Test Name Value Interpretation Reference Range Facility Coding Summary 01-30-2023 Coding Summary HTMLBase 64 QdmqaxzeWBk0kRn+PGhlY WQ+ND6FODFnU51vaRPkuU 1iP2SKTYzQSqugQSRXDWu DKgPviuNtSL2yjYNvUCPm IC8+UH0dEYCyWysvgLDtx 9Y8oGD1X30wyk0ePQthkR E2VOAnMhSmqwqku7onzIs 6IDcuNmluOyBt IICoxF33NYI3tF52Sx03v GUtkIRro0uorNq1KlNtNZ KzNXS7iJyyTHkdc1JkZCK lO51nvUEgl7O8 RAWzeJbsfLVwHoSwnXD8f V9bYDlxitsel1uokemhAy p1kz94sIUaz6Q3fDZ1R7M bzkN6QSHnvXTx JceouSTGoW0fhjpnf7jhk tsjEaXtJSWvERg8NQb2VX QheLllAsFeNM60ZMX2DOI tipQcH8YqDIVh lYbwUxE4g6Q0Pe4CN7NLM ofyU1GWQKUBMOffhUX+PC 88ee03S4EnTboyUue3JSB fYTP1yDN4rG8o CYYvBVerz7H0wRP5R5Xbf aDsrw6xg2qmSEIoCSpeO0 9ngGPdr7I7VTXfoKG9MRG wkAqoYzGfaM72 Oyc+FGXabXfcc8NkLdonn 9les0dnkSq1GbqzRTGawm QzsGnzTNK5t0NgEi7wMSW kmCA3lTO0cX5v TbBwGdX8DFtwB466IoYbv WEuDduoV91sY4CumAD+PH NyHmr0KIObzVaqSR1gR6T hZGRpbmctbGVm hYwwGI0lRYNndldlETVjp K4pHGPyQ8s9NsOxShJ4GL voC4LkDDYaixzjDc06kE6 yFhVqDjK9MZke E5OngjW6PQZtsTDvJZdtD FE0C65jb8H6XFRzKHKdWH A4nVY9sV5bmKdezvgzzXD mdDsgdmVydGlj FIchQOeeG150VHHfpGijQ kNvZGluZyBEYXRlOiAgMD YvMjgvMjAyMzwvdGQ+PHR zPTZ8oPblQGZq cGPgBMsqMp6xwVhuoGkqI A8tBFQbxtvfKFJjxR5rZW FirOFeyFgqKO1nWCHthtp hk159TyXhFBH3 DZCzzPEbX3PhuE1yIwZeY JEoXJUfO0YppIVaAVbaI1 28WUsaJyD0ZSJclhYsQ0T sLWFsaWduOiB0 c2R7Xa2Tl8JifbzdP3Uvl DDbCyAyHuhdVTr6T3BzUu wvdHI+IC50SWWlXG81DWu 3TKG9wMefNAng YOUoL6TjyN5eDbAwMPLcK GRkOyc+PHRhYmxlIHdpZH RoPScxMDAlJyBzdHlsZT0 zKc5fNEKyBSLw bAktgSKxJmBls0keTYNfR VnhVP1bzIdkY4MriHE6YV Bar6z8Dm05H72oY2CspIF +WAYjkWP9pYP9 dL9lHpQoPsB0OWaiH638M mUplMXyZnbql7qqa7ujrG x6BaM5DMCunsNyfYwiZTV 7j6GyZv25Q12t IHdpZHRoPSIxNSUiIHZhb Uuqsq8xcY1lXn9+PGNvbC N6hMU8jX2hNrJxRuQ1QDn wB499YbUicDGb Jlkfx5wvy0gsuXe9YfYiV VHbxlCunDccSXP8m3DlJo 31H9QmqTszn4FbFtr9mj1 9yFBbc9N1wTU0 G1PgHBZlrqamfMRxwTpaO D2pQYPnfitwLKYwaA8qOA EdZ4w5QsEfGfQ2PDuxO2I eylD3MWNttTFi QMZnzIQCoU3phtygy1gyc bdmJsZrKCHnKGg7SOf3MQ LnwLfcCjIkHSM9SfY0FFT 9nFUqhY3qfMij gjuqwC7oWzi+RFJ2pDMwp NGMBA5dQlekgUN+PHRkIH N5nUvaNUagLULixT4hHEV hW4f3DkGaWdC0 GWsgH1IjopV5FARvvHBmG KXleOGDzC3evtawa9plaz qqEqThLWLpRYc7RKs7UDL saWduOiBsZWZ0 YwC1PHE0qNVfyY4iuRpdo qwnmL6mSvh+QmlydGggRG E6JNz1Q4CgOgb5RZGxyBd eXR2atMTmSHws Th4eiSuzpZikXB0pBRSzj bfid073CzTud2fuVGAzqA GbAMlxILT5Q71wi7O4VUX uNTOrOYK7nIE5 uH1nwUluqwrstHWasLqjv qLhvFzoIQvjVLmvK092OV DclXtmXcNtIYj9H0QgNnw 3JGIvbQohTT7t xMMcJNotYm4scFhjcKkxF G4iXTDwtqcrx449YvEqb9 izHRPazWVfDMskQDT1H43 qj1D7MGLbPEUq XXM9hMP4oQ9uiVmnqqddv GVmdDsgdmVydGljYWwtYW nnL007KCVpfVjxLfGtrNb 5F4AyFop8RSHp sAkyEJ9xxRPxLVdyIc6sc QsxmIwpGD2pAVOpdsjtt2 71IhBcs4nwTNGfpDOxMJp gBGD9K86vs2Y9 AUEzXHYoHVM4tDW5kV7go GlnbjogbGVmdDsgdmVydG zbUSvmAEqqN369SVRouPi nPlBhdGllbnQg DWfwDOc1C4KfLnlltQL+P O82HMJlBM22yTGzpPIcr2 atkKn7BwPhQSKdXUA8cJc dLChyx8RlKGRz W21yhCAhx8V5DIRacIgbo BMvKoJjzQH9dW3pKDdjxv dbs3vlrymoRxrxc0krdw6 4rF56I36cTIgb ZHRoPSIzMCUiIHZhbGlnb r7vtI8cRd7+SEYpmFA3yV E1uM3uMGAuSiK2VOqoB35 9InRvcCIvPjxj m4iha2napBm8ShP9KWTcw zGwjXaqHXO0a2PpOq52I4 9sIHdpZHRoPSIyMCUiIHZ jzRwmgc2mxG7o Ii8+YZFqnCI7lWE2jW5fX lDvLiK9IUxlB916SoVkkB PfMyxzR33zC8MteUK+PHR zRsc1DNYmtWmf JV0arMMjHVpzPp1cIXD8Q rSkUjVhJFavG4ApGXEvpa cpxbtqaTC2PRChRVFrnT9 2Wd3ucCouYEGb xGUPmP8vthxrd3kbiisbL lMwBYDvLNy7KJv4SSYvgP ntOzQpSLL5OhO6GGT3sHJ lqH4dcCzedmth gJ6qE0HsBSYwsyaaIu94z H8rYiEkNhQ5ZLgiAew+Ql JPQURVUywgVEhFUkVTQSB ESUFORTwvdGQ+ KCVoFGC9tFrdFSthCBVlc U7zJHZoH8i4VeYcPjH3KV mdJ0QxLWHjgnghTr96kM7 aXfTeNfN9NMfs P8JgalO6OAJxrLJjMIbxP QM7Q00xs3V9QCLrYNXhFC E8iKU8sN8eqXhadlskyZT mdDsgdmVydGlj CYclCKxfK639KAAuzDcjT jHlEqIkRzN5IdE5H5UbZv n9JAVicXkpVX3umMQxLJs zDi4fxPmodEgg JT0kMMBeqodcDATiyJ9sO QJtfFHuyJluWJ0fOBVpsb cyh733BeTvNAO5SZMsqYS bE4JqhJ6iWdIr ANSkSKOkQ5SyyRFcNHjxE 557NKtsBqK1EOGiltDkS8 KeAOBubQatCmY1s8T7Fx5 2MCBZZWFyczwv dGQ+LGPkEVG4zBajJDqlM FPkuE8tPRWoV6i7PzCcNe D8DJfbU2TkKEEqjokeAt8 8gP5wTaNcQpE6 MWmzZ3DzukM2XFFjpOHpP MbgKFP1B11db4B7HLXyWH QqHNJ7mUD1hY3tjOxjkzh gbGVmdDsgdmVy bYzkFGydUSocH221KUVkl DsnPkZFTUFMRTwvdGQ+PH JnOHZ1qBhaJYjzLLAqjQ5 fPLMbE8x9CcEq JaN5QDhwB7EpIQSmknclN c04yF8zKeCtEbN6IGybU7 DvtgX6ZSSxqIOpCYfiMSR 5V79oo6B1FTCv JUNsDUU0mET2dA0qdJagd jogbGVmdDsgdmVydGljYW uqPXyzW351YIQzsYeqXtV vXQJmVR3rsKlr dGQ+AO77ux89R6OxKopvR no7TBYtCJX7kWN6iL6fRS SiBBaao0X3kAA2O8BzxhU peg8zd5fyKNFa TBxiZ42osLVnq4L1RHNxh OX5ADAmmEmjGtPyaE27Mh c+YAKnvMmnf2ZwMibml3d hf6lfjKh7RlPe JJInvqRsnBmqDTK2l0GiA n11B28eKTpdVMShSRSlKT FtECPgoKfyxx5cyL9mQn7 +IMRfvOF4uUB1 yV5kVwTyGcC3PTouZ416J oUcrSOjKhodn7fru7kqmZ d9TmAcDWZalbAepThhFBT 0t7ReUt32V0Rq lAqba3IrXpt9ru26gBQrl 0K5jZO8Q0YfSCJlpcnkrZ SkvOzjHH4uSGWonwykKSQ mhU4oMLMjA4a8 VuDnJbJ0ISvlA6UhwfC7G EJixQXaHPFmoSSBcT9dsm xpk7jpsfocOmKdGPRiMVr 0XGf6KYDomCgo RqMqLWO4GcL7NBP3tTBod H4yjRxomqelhT8tUih+UG u7t6uubAYoNC4crHH9EK6 6SJ23nLVul6W6 mIT0A3XsERRvksamgfxet SL8SFBbNGKpfH62Yk9esM xcMl8cXWKsJZV4ESOwzVH vG8IowY6mZwQw PRLbOHJcV3DdoIEmZWxuQ 197KAzwUmX3USLcunGpH2 EeZRJufRgmQjX6i6V2Td6 NLN09XE47XS56 eIZml7S1fMR7O9JpZTQpi idlncrstZO8QFMpWVXboB 76Vz3cwHwuCm5tIYIxTEB 9WCOgyRLgL1Of kF1pJmGwSQBqJCCgS2Key OWcLAveB739QBusQyG5YC HglhMzZ6LhYKStfMfhQoJ 7z8E8Zx7BPv24 WD86YX61kDZob4S8sRV1Z 2NmGZPabsrwfbvehNJ2IA XkZACedB99Dz3zdXjfZv4 hCNRuPJS5XGXd jJMtJ9GsbA7cLsBvAHMdL VSpJ5OvzJYxMJgeH321NK iwJkF4YHXexaCxO5PkOLC ioPstRmE2q4F9 Eg6IVTtmaqt7C5YnFgjdb HI+HC30PJQbWQ62xMQycH Rww4mqbUg2QjPgOELsIPA 3uWzmKXorz0Qe ZXI (more content not included)... Normal [facility] ED Clinical Summaryon 2022 ED Clinical Summary [facility] - Emergency Department [address] [place] [address] ED Clinical Summary PERSON INFORMATION Name: TAMIKA MYRICK Age: 62 Years Sex: FEMALE : 1960 MRN: Acct#: Visit Reason: Itching; Cough; COUGH Arrival: 01/25/2023 18:19:21 Discharge: 01/25/2023 20:20:00 LOS: 000 02:01 Check In: 01/25/2023 18:19:21 Checkout:01/25/2023 20:20:00 Address: [address] [place] [id number] PCP: JUSTIN ALVAREZ PROVIDER INFORMATION Provider Role Assigned Unassigned Whitney Garces PA-C ED PA 01/25/2023 18:23:59 01/25/2023 18:51:49 Heidi Rodriguez EXTRACTOR FILLER Nurse 01/25/2023 18:51:14 Whitney Garces PA-C ED [...] Home PATIENT EDUCATION INFORMATION Instructions: Asthma, Adult, Butb-fq-Rovm; Contact Dermatitis, Zmps-ai-Ceuz; Acute Bronchitis, Adult Follow-Up: With: Address: When: JUSTIN ALVAREZ [facility] [address] [place] [address] [address] [place], [place] [id number] Within 3 to 5 days DIAGNOSIS: 1:Bronchitis; 2:Contact dermatitis; 3:Asthma Patient Understands: Yes - Patient/family/caregi olimpia verbalizes understanding of instructions given Comment: Normal [facility] ED Patient Summaryon 023 ED Patient Summary [facility] - Emergency Department [address] [place] [address] PATIENT DISCHARGE INSTRUCTIONS Patient Information Name: TAMIKA MYRICK Age: 62 Years Date of : 1960 Reason For Visit: Itching; Cough; COUGH Arrival Time: 01/25/2023 18:19:21 Primary Care Physician: JUSTIN ALVAREZ Attending Physician: Bladimir Marquez Comment: Visit Diagnosis: Diagnoses This Visit Asthma (J45.909) Bronchitis (J40) Contact dermatitis (L25.9) Cough ([id number]) Itching ([id number]) The Pharmacy at [facility] is open Saturday through Saturday from 9A [...] alcohol and/or drug addiction problems; contact the [facility] 25/02 Crisis Hotline -Text [id number] jg [phone]. If you received any narcotics, sedation, or [...] legal documents With: Address: When: JUSTIN ALVAREZ [facility] [address] [place] [address] [address] [place], [place] [id number] Within 3 to 5 days Medication Information: The exam and treatment you received today in the [facility] Emergency Department were for an urgent problem and are not intended as complete care. It is important for you to follow up with a doctor, nurse practitioner, or physician?s assistant paralegal for ongoing care. If your symptoms become [...] so we can reach you if necessary. [facility] Emergency Department has provided you with a complete list of medications post discharge. Please inform your program coordinator executive education/provider of your visit and for further instruction on these medications. Any specific questions regarding your chronic medications and dosages should be discussed with your primary care physician(s) and/or pharmacist. New Medications [facility], [address] [place] [phone], [phone] dextromethorphan-prom ethazine (dextromethorphan-pro methazine 15 mg-6.25 mg/5 [...] mg oral capsule) (more content not included)... [facility] Coding Summaryon 09-24-2022 Coding Summary HTMLBase 64 NcthiwswCVn5aYp+PGhlY WQ+XV6UTQMzX09jjEBjrW 1XH0nENY2CCGXUAXVYJU0 IRP6vkFX6HUcgT5QouiAr NnmsyCBtUS29FMz0JSV9m FbgDSwytP7kfEGkG9e4Ie GhUK23yM37VPqgRXAnVpC 3LjZpbjsgbWFy R3uaGlBfoYMkKov+PHRhY mxlIHdpZHRoPScxMDAlJy DfcBsoHP9eNc1pLQQzSVS vbGxhcHNlOiBj t2ubBYExROpeGZ5shAjsD 3TeeXE6VHRfc9f0Oy14aU I+WPGfAIN1qQxyQImyv35 9YmNdk2qhWRA8 eUKfCOemUME6O87ux6Y6O HLuGCIcZYF5pJF6tR1smX hyjxgqG0CfkMNsZyQ2SDA 7rOKbcI4quKzv tysvpD4dPlf+O65QIC1HK OSZYC2ROov8J5AvGzzmwO I+YF80HRCqEM13gKHlbJO wm1iepGq7SgFr GNRmYYW4jQblQBiak9JgN SXjL10ygOOrm0K9SCOzaV ymnGWxUhQhuYM3jA3eQFu hqwlpb1hogixd Utztv6zoql36lR23T94bK NtnQGMoXYI6GCUcVQWpkS ttnp5xgV0jSz2+BMuno0y xt7mdoFt8TtCv BXKusyOnyEzgXHY1m4HhC w92O4AbvMdaf5DqElj0au 32qNJlw7C4pAN4NXetFFL fpT8pOFzcDiP5 RPPaGiJjaF13lUNlEStyY d5hsMwxaDkeBX8dICAdtw dzDLKydE0tHADnnUNhlBe wFN4qZCLxkgpo e422BrNmNLG0UDMmfLAkU 5McvZ8tSoUkDDEoQIVdP5 IhxMVaPOofR679ZXjoRiX 8SFPxraVuX3Qf DVCwlDfaIxG6c2H8Ij8Vo 9UqphraOTN3IUmsATUuFa LyOyMaElV8U6CxNet2QOT pdYnvGN6mT4Cf MBZekakahhkyoER5MXVtZ CBqzU32tNAvZTqqRg7ua6 E6k510UIHzUOHbuQ74Jf6 udDogMTBwdCBU vM8fqwqnf8mljfuoZbGwS FKuLEg7RTp5PURzoLhsXt PfAAN8VfE4ALP7pSPvlE1 cbSjodkfbaL3m Oyc+K60zjL2aRQG4BGM7u xgoCXQippOxHG23KY44P9 RyPjwvdGFibGU+PGRpdiB meSxcRG0kVkKb v2cdb5PjYYsbL9CeRZDiC GeaCpy7GFVvYVB5fHN6aI 9eTIOjQDzun4M3jYC7Y7I zwwHcrx9gz8gr CNWcLRjyO50ycPJzv7W8L MCegLN2JKFmwTfdAeJgrE 93Oyc+WVZstOqng7YhCnf af9ucu7zllRp7 SzLcUNSxzpIteLxyIUS1r 1KtZz42C88lZNcdDBIuGC WdFUGwCXChwUuppv4osB3 wIi8+PGNvbCB3 nYR0yM8zWKJpUbE1PKreK 447GaPkrCLlArnec7ohq6 ezzYv4SfCmHJYfuiCbhIl nPLB0b2VaJf58 P60cQYcsOZZuLSTgQLTrA AQpwZqwyj2ctA3hSp2+PC 9vm1mqrb48rP93sLR+PHR dIWK6dRxtAMpw PXRtcB5rZGudVoL7LVKxT cXmhG43nSEeGVxqHa3vcV wbrPesBM5fQISqyzzdy66 7ZoQpu1fdVWWt cDPcNJvoMAY8J29uz3Z4R SIrREPaLEF2eAI0uQ7ajF lnbjogbGVmdDsgdmVydGl eUSytYTzvV770 IHRvcDsnPlBhdGllbnQgT rZeXIb0P9UsVcf5ZHCfnP iwZA3orHWqNKjvDb8rzLz kfJpqZE8dBSZm cjbne091YwQde4exDTOwk KZrZSpeBEN0A76bp0I8HJ YjNUJgJKJ1yKY9cZ7zdNr nbjogbGVmdDsg jrAzoFqiOGyfQFtqK802T HRvcDsnPkJpcnRoIERhdG E2QJ52WI37cVOqu9V7dIL 7D4ClMXLhgjwh bwccxJK2IMLzUJQwnQ55B k8bgKzrFz1wZJBwKWZ9BF XsrIBzL9DuaC7dIdRuMTK jVZMeT2CneHDb PAxkY800PAfaChB6LKVgy tZeA1FiMUFbmPksYoB9e8 R9Na4YM8D3ST57PS78rMG gs9O6vPO3M3Ox LBZgtaqqrcezuMI5LRXyJ STxiN03Ni8abLvtXp7yEO StXRD9CRVqjJOpM9QdoU5 yOiAjMDAwMDAw L9GopIGqEFmwJ768HCvjN iI3CCYjvtDdU9LbACDyvK etQiS2m6C5Cz6XQNw7QE9 0TL01rKKrf9E6 aNS5H3OlEENankzntgamk WG0ZYFlRAYnrV53Ty0epC inRw7dBVGiOPA2TWJoxWB cE4ZciT0aIjQj CVRnEXOiW5PxgBRkKIttT 181VVnfTpU0KNAuopYcQ4 ObWQMllBmeNcP6n4C9Wx1 JQXLbVQ04JRS8 eWJ0BX01HU57F4ZbFdyvq GFibGU+PHRhYmxlIHdpZH RoPScxMDAlJyBzdHlsZT0 qWa8zDUPzYNHb nHszqCPjTpItk7izPTXkV WsaFL8jdNqwQ5GxkRM6ZR Add3v5Bo82Q19cA8IcaRY +XVEhaFW6jGI0 gM8rLiLdZvI8LHfgO743U hCunJApSswuw7qwk6zlvU z3EsU8CLJzukPugFbvWAO 8v9HmLy84I36e IHdpZHRoPSIxNSUiIHZhb Xssib6slV4oUu0+PGNvbC P6wWF9kM1uQfWpSnU2YUq iX903ZuRorJNh Yswzi1ktm6rtzAy6QxZlJ UTgnfUvnAyvOJS3f8OeGx 83B6RdgQuhm4NhOcy7kr0 5tABkq0W1cGX1 P3EvFYQzcdxylCExyTlsX C0lSZSszoqmLNUytM6qIN NaE4h5OrSvUvC3HHqqX3N ydcR0AFJbcXBm ZUptLHF0M76fd5G6ATVwL JQbDNT5xLI1nN3qaNaqra ogbGVmdDsgdmVydGljYWw hOEgnU517VVVe aNpxYNTzvJ3eUAJggVSej GprON7nHONgkbquKiHWG0 ULVZRlTPRGBHUKM7UdODo RTaJ7P7ClSfo9 ROPrhTcyZA0viYSrCIfwY c8yjXfmhNqvQZ7vZNKpxa ifYDWhuJ9zIMSdjIBoeZf lXG8ySWBzsljf j368EtDyERD4TEXiaNXbG 3QadS2lKsApLBXbTCEqN3 MpwCEbOSnwF533XUwiJqC 8YSXnabLfN3Pg UFOnxCrhTfD2w8O3Ut0nM W0kTu0wGEIxGE20JE21mF Dzj4C2hSO4S8DdMQUmwrb cvjdgmIK9DYOw FDTqfV40nRVoQDjzSh9ct 4J2f998REWlPAOkvF21Ho 9flLgkQGYfvRBIiJ2kmnq nx1kfzjevQaJt AMZtGCu2QTo0PYHxsTvjY rQpPZS7KvV9BCL1kKOhrZ 2czAlftdtcjE3aMoj+NjA kIUWizrB7M8Bh Gmz1IPMxrUbvZP5noLVdB HfzCt3piNnpiHucMC5sBV OtwlisXPFkhQ4lNNYalET dpXuiYX6nPDAo zzxaj393QrJuMVP0EQNnr JIhW2ImiZ9tRyEfJKEhAV UfO7LbbBPsBZhdQ424JBh fBhY0QLUmjvLa Z1UqASKtfBcvWiF2h0B1H p5VHR2UYZM1B8MtTyg9YE FazZjvKK0luXQpPViwSw0 hsHyfyOniRO4l DEKdkcfiTPFdjZ7mQDJgy XElnQadJP2eQDDklkwlj2 18LcUuHEF8UKIswTMhT7T qjV0cDbYfFVMk PMElJ4DpfPOmNWcqB684F RvgTuO0VXFteeLuT9XzBL QtpIpcRnB6q9S7Sg4TGBb vdGQ+QE59xm99 Z6DeBqlrIid2IVNmXVP3y YB0hR5sQPWtBOonj3D5eU O7D6TbpnNazb3rt9tfFAH oHGvrE91dmVTz v6C4UIOtvQL0CBCilUhaG kMqtZ62Hyw+PGNvbGdyb3 CtBwfzx4lsd7ovpPh4XoG wJSIgdmFsaWdu NIY4v7LzAn66Y44tMTiuN HRoPSIzMCUiIHZhbGlnbj 2paM8bZn9+JYGfjBC5wVQ 2xD5gOrOqZuG7 PZpzX804PsXsbVTaCroia 7dgh9ygbKo1XrIkBPZmiw DqvGbcRYG4h0TwRr98T6U dnIhuv3CqJpd3 mk09gMTit4L5nGZ6C0KeM XWxfvrjpYXedShfSK0sTB ModjeaQCKwpO8pCBWrT8s 9GeSeOvO7AGeh L8JcxeL3CPVxkIPbDXFmd RNIaN3wncyro0hngmfhDw HtDJUoIMb7UVc4MHBmwGj oOiTkSFG5NgF6 QZS6wOKpfV0xyBlsoycrf G9wOyc+XKo7s5yhjDMoFM 4fdFS3WG64UC09jXLij1I 0mQY2H6CgGISi usnufouidIM9PHVmKMZly M20Og3gpQgvSj8iYVRgIM E6KCEqoUTxC8RhrA2vUpQ hRJAzKKJoQ2Qa zQHmCSixN490XEihGwN7B TBxdzHdG3FyVAWzcWybFw F7j5N8Bx2WBZ10FH42XS9 4sKIjo8K4iGW4 G9GuVBGurjvrdaremVR5N PNeFWKvwA68Lk1tzVxhXn 4bTSQoRDY6KSYobRWoB2T sdP0wHsPmMOAh CLZrE0SkbPHcWZcjJ727N JfmXbH0AIJvbkLvW8SwPQ VztLqmGxB2e4E5Bj7IHv9 7UH56VT80dVHp k9R5rFW9J1EuBSRxgkksq ngjdQN9MGMoVPUxxG16Uf 8tfJmhSx1yEUItVPM6AKG yaOGeS3EbuU5x DpVfHZZaJFAdB4IhaDStX XduW660OMagEwO2GJTojp KsI3ZjAFJyiSpgTiN8k3U 9Ki0VNWusjqg1 R1ItMvspyNP+KM26JJIhC P11dVCfhQCua3xzuKd7Cj LqISLxRYR8iNekBWzxv4K lCHQaC05rdALu c2U (more content not included)... [facility] Provider Orderson 09-24-2022 Provider Orders [id number]#1. 00OTGTIFF [facility] Provider Orders [id number]#1. 00OTGTIFF [facility] XR Chest 2 Viewson 3 XR [...] Rohit Major MD 09/22/22 3:31 pm Technologist: [facility] Coding Summaryon 09-18-2022 Coding Summary HTMLBase 64 OzndmholSYw2qDp+PGhlY WQ+OT1WKEDtP09ddKJnwL 2SR4pTZU7VMHNGHBSMGA5 ZGX9xaHM1RZcdZ4JgkfBw StkokDVmWH77NJt1RDJ1v WqsEEthuD9jnTZoW0p0Ie DaXM53tW23IRnvMBCeXkF 3LjZpbjsgbWFy C2ehOfRhwRYgMlm+PHRhY mxlIHdpZHRoPScxMDAlJy WpyKkkJY7pRv7zNDJtLJS vbGxhcHNlOiBj d7twUJMwNGmiAS3orSxoO 8FulAI8KGTcz5i0Gq75qT I+GPTnYAE1zJupSRnrb29 3HmRix8tgDKV6 sZBkHQibAMW2A65gv0B0R MGkNOUvIUD9vWS3nD7rvH wibcraS2GkhGUkCxY2FYT 0qOWrvB5puBhk mypjyA5fMzk+Q50TBR4WY GXMPJ0FHhe9T5RoTfcsoO I+BZ88QGQwPP56aJXhoQM ww8befTg6HbCt OYBpRYR1yEndFZdma7ItW CPgO54frJNdr9S0ZSLvwA vcgMZqEjGssEI1yS2nFWa leshvr6thqzfj Akobt1hsoj70xE04D46eZ CgwZRJnVOK6RFXuRSBgfA okah9dkA2xBq2+GGlns6v sz3slvJt8WrSp WJFloeTpuBeaPGH1x5XpZ x03J9XfaZhrf5TgVqb3te 12eAXrs4S2iOD1LTtlAQL ywO6qPHnvYfH2 NKAuDpZunQ15bRMpIFfwY v3oiEetxXvfAY9fEVTfhm xnMOWyyO7gRQXzgOHnyWn oIA8rVPXfrnui k704PwEiTKI7YFQbjIQuB 2ZavL0uDbTbCUUhWSEcL3 LszEGhVRrbS129PNdoNvD 1YGEcknFeG2Ka DNJpaBznOuJ7v9V6Qs6Wl 5IoasyzLSR5JNjcNYBkNq F9RkZlOvF3S4YzDal1QHE zfVfoFQ4lL4Rg LTHmfhdimixvyGW9PHLkI RUfzR23lZCgHLlpXq5fe0 X4l649UQPfCACtlC56Zu9 udDogMTBwdCBU yE4dxuusl4dzagwySnGjE LOoFOs1KOr8JHCpcQorKo EzUEY0NwB8IBK4kGGljG4 agXljegmbvU8w Oyc+P53kwM5tJHY9NGN9b jqcHAWcgeTeBE31ET51V2 RyPjwvdGFibGU+PGRpdiB leSbsKU9eCvIf z8tci3TsXBwvR9IsVLRkN BagQfn3AOMvTMF2jWG9wN 7sSVMbQJnbz9H9jFE4F8D ookTgln6ea3oa NQCyNSdhC16duYKwr1M1Y XOdvJE6RHItsJroGlNcpC 93Oyc+GGMwnOgcs9PcCpp oj5ebk7yndTf3 DdTpYSDdxwYcgLyoJTY7d 9FaAd81C60oVSrhNCDyHW YnGKIcHGRfqEmbcn8olH2 wIi8+PGNvbCB3 rVR1mQ6dEFQqGpC6ZXgfT 748OyIdqLPrOvpiq7zgi4 nyzOk3NgPdGICfwoIzuVq eSEV3h1EhGh83 Q06kLVofQTFaKHShWIHhP TOybJilev4rzW7lMv7+PC 4ry0zeqf31pD79dFE+PHR rYNE4jNrrTHiz CAWpmU6eNBruZeN7BGYeG rYwpD11fLCwBRlpRx1npX ndaAnxIU9cEUOtyvtfo69 8XfFmj5pxNUVu aABtQWyjEME0U29rg0O6A QGiPJThBYZ6yYJ0nA7hsA lnbjogbGVmdDsgdmVydGl dZZusEKiiP366 IHRvcDsnPlBhdGllbnQgT tUbCYu8G7HiYme6ONDokM naQJ1rlGXgORteAv6ujFq taXgyQJ4nOIWd nypsf797HsRth0lhYSTsx CMySXulRIF7J92oo0X2IU YxQUXqXMC2xRR1kV7qgQq nbjogbGVmdDsg cqKoxBmiLAlxKZoeB445S HRvcDsnPkJpcnRoIERhdG T9ZU59BT79oUMhi8H2nVO 8M5FpRQIfvvtz kjateHM5XEQrTKWljY21F k2kpNjeTh6vLVDhTBO9RD YjeIOyL0CnqY9fMmEnSQL mEFPwV1RnlLGo XFugW891LQyiIxQ1DPEji kSvR4HgWGEraYueXxN5l1 K2Lq1NX0B4OF33NI55bXP lk1M2oQI4T7Bx OQBksfzqfndaiIO3ZOCxZ GIysL83Gs6dvMjmXs4xOD MuZQL1DASdsOMkM6MqyY8 yOiAjMDAwMDAw F2MwaFFkDEcqH151OZlxW yR1IZVfbjAeQ5BqSQCnkK zzKuC3u2L7Pi9UVMr6UC8 7EP06ePKkf8A2 oSB9A9CgLUXgmvtdrdqwn MG7FINmBMTcwT36Xx8nyW guYz6wMDToWJA4JHHthZA rY1NygH5iYyBl FFVeSUGpD8MeiAOxNMsfU 033FWeyPqD9LOIkakZrI2 HkBVYmwFnvHzF4v8Y4Wm8 GYQGxOI95IET4 mVD1ZX08TZ25A6HiEezsr GFibGU+PHRhYmxlIHdpZH RoPScxMDAlJyBzdHlsZT0 lRo7dKUIoYSUu jEdmpTVmAvKdc4niTAOnR IqyZO5yfIkkC3RogAB7RJ Inh6o0Pg31Q26gC1XdoZR +XJDnnVA2qDG9 bX0qPzPqXwE0VFgcU232Z kCseKVeJrdij8bkg7eamZ g5PnQ8QCPqnkNbwFmaAMP 9e1TxUa63P25i IHdpZHRoPSIxNSUiIHZhb Tewds1eaT2pIj2+PGNvbC V0gDW1zD2hZyDcPwA9IOh jI112NwPrrTOp Oneel0ren1mdhVc0KcInL NChusVmsWydNSJ8s9CtDl 84M2BueGuxz5McFaf6qe1 4gIYpy3M3iMS3 L5IaRYIbtrkwaDRayUzwN M8wFSYphmizOSQhxQ1jXG LkJ4s8UePeMyK8YSicC5Q ctvC7CCHyhUXc XSzdQUS1Q65xz7K7GUGxQ LOjWPQ7lJG9qU9kvAiwjd ogbGVmdDsgdmVydGljYWw yPJpfE525GZLm eOnpYMEfqM5eKHZxtPOmk BcmCH7bDMUrigatLxVXF0 HQZTVlDMVWZONAT3PzIVe PCdA8H3TtFng5 UZFqiPlqAH0arWWdTSglY n6lsScxdCzhMH6rWRRhwq eiHSIdkP7pORItsMXmyTk eYE7hVZDdyjno n246FcKxGCQ9DWWohGAuW 9CpxE2lDiFqOSRyJKXkO7 VqtOUdOEqzG561QZmhWvU 1VICyeaVxH0Wz OOIlwRvwLyA8t6P8Pk7gW H2aAm7eZSDfDZ11ZL02kL Gwx7R0wTL4G0OwIMJeiie eiteflJK7CDKd ILIssL33zQNbEXwiKk4aj 7Z0l660UZVoQDJfyQ11Cx 0szTcmLLFgeBAQtD5zvzb ex4ntocksByIp TCIaGAo4YNi1AGNexIylP hAsZXL0CjG8TSQ9hPEbcV 6tiXolfxsxuR7iMch+NjA xXJYdieD7X5Hn Qyp3AUHniOphCA6vkBVlB LxhHz3mpRegxPwaPJ6yWG WhtoqnDVKmfW1nRULfkJM dgHinBV6sISHa dvurd713XkCaFGI7JSPuc GDdY2OrfR2sBiOmCMYmET PdE2TlmUJpGBmiK918ZFr qJuR9CMCtrcAe J8HyXLEstJueFtP2i0A9X r7BUS2VQCE8L4UgKzy7OO QqcAweXR0fdSLpYGjrHx7 uoUgsoPfeVX9r DPLtfzjkTYYydE7sEPFso BPsxDtsVQ3kOGUgqmozi6 54CiLpNTA3TBDiwXZyC4D qnO3uTnZyWAHa JTJaU2StwOVdHMbuX931I YhjGnL5DDXyazGdS7KwFR GtmDmdUmQ1y6G4Bk7TNKi vdGQ+LY24xh26 K9TkDfiaJyq7IGMuHVN5a OX7gE0pWXQhZFqzj7L9qB O9X9EiagPera0wf1kiQBW yRZgxH43feYNs m3S7KJKatBV1OJJjlAtyN oBklN55Spf+PGNvbGdyb3 VvIcrur1qnh1yvnLq6KkN wJSIgdmFsaWdu LON0u5QlUg74P72lEOwzH HRoPSIzMCUiIHZhbGlnbj 3keQ1aFv7+LFHocPG5yNK 7fE7hWdWdKvN0 URloN334HqImyXFfRpbtr 8tal1phmHk8BfJbATIesb QngNenDWX1w6DbGe29N9A zcWjba8PlWqx5 mt87kLFlg7H8rMV6H7QwA DPyydntzHKshHgxEI1vCF QdesehEPQdgJ8zBHKuS1k 7GbTsVeI0QTvd A5YmilY2JBItsCWaBUBwr MAPmM6pgwfwc3rvrtwsYg HcDCQdCLs2JAd0UPRqcNh gBbJyZRI4HfZ7 MKA8lIBaqQ1vlKiwiplze G9wOyc+ICt5o0tgjNOlVJ 6smBP2ME91ZQ74zWSmb5Y 5iTO1Z9TbFLQv nkqxhubirJT6FOXaLIXgt J16Re8viDnhSb4eFLLsDN I3UFSfzQAlO7XccM3mAgC dUVBiXVPnX3Ro oNNbXAzfM682WKaxNpX3N MNsuaDiU1VuCHZqeGpmLr H6v8I6Ll2ESC49PC68QS1 8qJWpe4M6wZF2 M2QxFIWniwqlpogqxHC3Q JUpMJQxrY02It0mcFgrVr 9qJYTdFGK2KGEbdBMyX6P imX5oFfJqTHLy GYMaZ0QdlFKqACbeN409J BciCwI6ZJZftxQrR7PsZJ OfqSqxTlE6h2O8Fp9KNo8 2TD11JY56lPFx s7J8iED3R7HoCROvcurdy pvavRA4GFEvZFSskS77Mg 8kpGwhZz8yQGCoMVQ4OLE ymTOzX6JxuX7g FsMnHXTwCBRxQ7EqpGLjF HdnI332PHgrOjB3WUPbdp VaM7AvMUEtyZzwAsM2m8Z 1Zk8BEZmtfbs9 U2RhSywslXP+AB66BMGnT G11xOZgkVZcb4odwOj4Go JwFRMeNBC9xKnxLIqud0S vFTQuX23hxOHb c2U (more content not included)... [facility] Coding Summary HTMLBase 64 HqrtclloZSo6eOr+PGhlY WQ+OI4UUGUeS38ccWLhtX 2LI6kPTG0NVTTOOZZGQZ8 FMA6juYB3OQyzU6FasjUh XnyemUSlCT40RQj6KFW0d FscNJvojD5dxEHqK2g8Nz YmJQ06nQ52IBxeRLYkXoP 3LjZpbjsgbWFy P7yjSyAhfQPiWsj+PHRhY mxlIHdpZHRoPScxMDAlJy UchOamZO6tRx1zBZIrPVZ vbGxhcHNlOiBj h0awUKEhRIowUV9uwFfgU 2OlwNT4TPIpi7m5Jo05fF I+CZPzBBM8qAipUCudj39 8GqVcl8yuYRF6 hETxKMqlXBK8C38ur7D0C DXwPXAyUVI4oWF8bO5baS imezsbS2LhcWDsZrC5YFP 6xRMwrQ9boIpd bwjzeR2gRil+K40KUB4MT SPGAY6SVwg4L7CqAkjgnT I+ZR54YROwZO50vPGkfGK py3dgpPi2KoKt YNMiUGJ5lNgiUAhfo1VcV HPlG04byJBco4D4IOSueO numGBcRaDmlXP4wG6eRJg jtgmvt2lmdrme Jrrqi0vbqk29sO78A79aK ShsOWJcMDH5XZNqOSUovW rmjd2abG3rWt9+LJsju8c no9vcxQn2RkWk XMNbktWvtJdxMKB8y2RxQ x09T1NotDhet0YmPew6xq 80cJXgn0D1jKL7RKeuEXE hlV3iIOayLsI9 IBChVyGxpO20gVGrSMdaM m5wyXhpgKspHX2mFSQxjt dqQAZgkL1bQKTkjCXoeOt uTJ1kMNLhavci n177UgZuIBR5JTUsxJClB 7YijI4iKeAuCQSjUAAtN4 ZktWJpKBhdP722GHojHgO 7GARpblOhY1Vf LGGeyCdwMkC4m7W9At8Xc 3UxvfksVKO8IEitHEOvQe P1XpAgYyF7V0NxEwh8BQC jaJvtSP6lD7Ll MRTbphbmoawzlVR6TEKhJ URniI67hFUiMXtqKt0jm0 O0m876VXPgLNXkzU91Zo3 udDogMTBwdCBU uN7ahgzsj7jyhifnDqQeZ YYcCJk3ERr2CUDqwDzkJe EzCAP1YkU1XUN1qTDkjO8 yiYaqtulppU5v Oyc+M95tnS3qORA0CXP6a msdXYYitoDzJQ60RY74V9 RyPjwvdGFibGU+PGRpdiB nvYokIO0vEwDm w2psz2JiOMkkS5OpQBSjK GltRqu3PWNaQPE7zEK6xP 9tETYfOSsgw5Z8zJA8Q9W hggPnaa3xs6fm BUDwBCzrB92siGPwn3V1E VGzvHD5AMThrBloViYnwE 93Oyc+YVFadVphp4NyEvm cn1pay2sgoXw9 GcAhGKBgtqKnkJdnTCK0h 7SdVe30P40lFZugEWXwTK PwNYWbAYGsnAylph9siQ4 wIi8+PGNvbCB3 vWA9qA9rCWZvSvH5WTpvJ 140YvRuaMIhXxrsn0eri3 pycSn6HhWpADGxxgOqlYo sFRJ1b2KoFi68 L23tEKbnXBEhVHHbJGBlU TMyaLezzk5qcM3xLh2+PC 3ga7ynmc78pG96gWN+PHR tVYA9gMuuUBhi ZOPmgP1uZAnbDaV6MCVvP uWypL56kWVbFUpeEw6rtU akoEyvII4uVORtqyhoc21 8VbKpv7irWZVz cKVyVXmyZFW9Y89kd0B9K JKmMZJsZEZ2nTB0dZ8qxJ lnbjogbGVmdDsgdmVydGl bYBwyTIgkS687 IHRvcDsnPlBhdGllbnQgT sMuQLa3N0PoLak4SGUpcQ pcWJ9foXNzJWscEk4iiPc hvNmeEX2yMOZq lrrnr927PmZva1dgZWKfl DAoKGpxYUS2R28kd5D3EW DnMTHnKZU1eGZ9sK8vsEr nbjogbGVmdDsg tbUadMtgJLngEXobV018Q HRvcDsnPkJpcnRoIERhdG R1CX42IN43fJZwm5E0aML 4L6HtIKGuaxmd tggpbDS2FFFnVMItgZ38H k7hhPmlRh5tBBMaGDA7QZ LkwVPaE7DmdK1kZmWrXKU wACBrJ5FzwLBn GYwnG640FYabQjF2MVFpb rYdG7RsIJKplPviHrQ0j4 M7Bi9FW2S3VB06LM65ySC mj3G3eKC3D2Bz IZJzsoduuxpzgSQ8ALHwU XRrqE18Xz7mbAvkZh0fCK SzTCA0QYBsdBVkN1WlfE4 yOiAjMDAwMDAw C1QyaMHnSNqkL239OGrnG lA2BOYnauNqJ0CsFBNsvU fhMkR9h9H3Ek0FQPc4RM8 5ZJ59eRFgr1L1 jMF4Q7MkBYKcmzxoixycq QI3VTAgXAJccH83Tk3ftF ehIo9dVHYyQJF0YDDycUW zA8VmcJ8xWaFn IUDaMEXbQ2VwzTUnXWelY 362FGtaYcI4DQGkakUjC2 OzNAZfsLheFsY0e8I0Vb6 TNVLoEK68GPK9 aUS7SR72GM26K3GuEjvro GFibGU+PHRhYmxlIHdpZH RoPScxMDAlJyBzdHlsZT0 bLj9gFAAfXNMz tMxhnGKzMsRgn3teBYBcS PdnTK5jeZxmD0IejSW9CQ Zkm2k0Hw61E91aY2YzxLD +FVKyaYA3sLS0 zM6hCsAeOjR7MIdhZ706Z kAhyLZhFypnx5hzi6knvQ w0SeI2HNDkezIzpRiuIKD 2r4YgVg83U05h IHdpZHRoPSIxNSUiIHZhb Rrpzu9cwH4wQu7+PGNvbC R9vHD2lY2eKeDpNbW4QDc pP156TqWvxRCp Qlqsf9uyh3hgjWt3LeTwJ OLttzYuxRzqKYV3q2VrAb 13L2QwoNfbk6CcFrc5pl0 0sAJzd7Y7kOF9 V7EuUKKagqxwlFGznCwoD C6nOEDohvxcJONyhK5kIR YxU0b2BtMuRyI7BKhrM4M akbZ5LFAirAYy CHbdIRM5P29qp0D4VTNeM OXhSCP3vKJ3fF0ykAutip ogbGVmdDsgdmVydGljYWw qJVjmD827KLDq oCmgSJDqwU7oPZBwlMCoq NgdHQ1eVOClbeziLxTWU7 PAIRZeINMGEPVNW4GeJSv VUoV5T8QcKap9 SEXjeSufRJ9ldWXrJYsuU u6khAqyxXuwBB4xEADrxy avRVClmG6bYYXqgCRyxWm cLE5bLOJlzglp v294NmLxJBG2FXZkjXMwK 6KvtR1gSoJpKFTwVXVkD5 UlpQZaEAleO704DOedMwR 5ONAthyVrZ1Sm XNYqiNivAqY2i5B6Nb6iF R4fWm4kYJFwZR42NK77wI Qhb3T5wJB3A5GrNSCsmyx mtovtlCJ5BCIa BUZotW85tIJhIMmvRt1la 8Z3j563XPAbQXMnqI44Ok 8kjSuyKUQpjCLLbK2iyig ue8vwfqjzAnTd RRSzLKl6WSx1TOYhhHfvK uCwUEO8ZdV3NPX0oQVbtX 1zoSrowlajdQ9oUkj+NjA qKWSqlvB1D6Et Mki8TLKlnFmoHX4dsPHjO BvfTm1ilDniyWfbSH2yVC FwxyclJFRcmP9iJRIkiSH tgMpgXI7xLNZq iwoxl498JuUcOMN4KANdb DZiD0WgjF2dCvSiAASaIU RlD8LfjIPtQFzmL553NUc dOrP1CFDeiwGh Z1WtBQHxvNrvKgN9n5B9V v8JCJ7ZKRW0N8NuIvm3JT ZddCyhGL7ivURfHHfmJg7 jfAyqcAvoYR2u FOKywbehMTVruX0bNBZio ODdwDqmSA6qLCDdiaftp4 35DuXlKSA0KSBbvQMnJ5I grR4gJeFdHEQy FKWdD9SheTJlBZayP856A JesLeF5RTTklwApO9PvWW NxhXkiXvX8n2O1Br3MgEF sP2MhG4y3B0Tz PjwvdHI+PR10EBImVD08c XSmpDVpt7myxFr9SzYhXR UaOXR7aZugLEvbs2FsZAE vV35fcOXqf6R4 ECRwsQecjCNbDoVykND4h Q8fNUoskotnx7qxqpdkYo kqs5yvrq30xQ42R87lCHi pZHRoPSIzMCUi EOQsjLmext5fhX8mHe4+P XBqiCU6tUG4vD3nCtLtAe W6IPnsQ111DbIyxQRiZdk yg6uov6rwcWv3 DgJrXSOlfiZtqPgzIZK2q 9GzMc24L54sDYvhKKUgRU JqJEUlYGSgqZtiic0tlA3 wIi8+KQ8rc2pp ym97eT86mGV+TOBiKYH3s ZjfNCysEBJjvK4wQPmkFr N0TQZuZuQwxD85tTDkVUp gCj4ihWphbMoz YC0oOREpoekng646WoHfu 7ziQCLooNOcBNzzJRG0A4 7uc5T7IDXyDCEiMRN4wIC 6lR1soCqzosyk bGVmdDsgdmVydGljYWwtY VfwZ635FJUjpSnuYlDppL MfQ4qcwqYDYM3vOrrhdWV +CKNhCLK0kPzi OQwbRKWwzI8fUBVnV4g5J dSuXgV2YOgeQ1MkqeT1FB EoaVXkGCQmpBFCuM9bhwz og6wlmakhSsVb WPRxIWq6WFh2EWIcxNydA rTeQRT5ZeB5HSO9vALtkF 7ssSzrpaefhP4pHnc+Rkl OOjwvdGQ+PHRk VOO3eKikJVwfTQPluC3sA VNaO3o6SbLbGmJ6AMnoZ2 HbbiQ2HROsfZKsWCEmfRF MtH1wsddhr3rg uxtmHdRdKYZxDGb0WSi3A EGemNqwZlShJVT0AlT5RX V7hCQdxT7anCbmohtgaR8 wOyc+TVJOOjwv dGQ+OMXuQCP8kNkrQGwgP ZSsfS6xCMOlV6d5HcHeSd L3UYijJ4UawiM5WSZmlUD hFXKwmABQrL4g ivqgt4jznvecPzTxXZSeY Ub5AEu3GHGgmAnuKnZdSU V9IaV4EIN4zSCtyP6bpAs phstdjP8qKct+ DZE3CNT1LC23GP54B3EjG jwvdGFibGU+PHRhYmxlIH dpZHRoPScxMDAlJyBzdHl iPB9kYd1tPQVe LWN (more content not included)... [facility] Coding Summary HTMLBase 64 OyvrvbsrYDi8kXo+PGhlY WQ+QV4JWTHrI82mvVZkdM 0WP9aHKS3VSCQEAAXGSL5 EKU4kiZT2ZZzzY8SebyKz EjdgsBTkSS16HNq2BLL7u GgyWRzciY1vpQIdX1b9Ea BpSY97gL63KKcxQOXoWyR 3LjZpbjsgbWFy O6dtOnIcwBOiXrm+PHRhY mxlIHdpZHRoPScxMDAlJy PerLnrTS4uIf0zERXsNFB vbGxhcHNlOiBj z3koLACbVRdfRV9mfUzaQ 0NyoEW5LTKpe6m2Yx62rX I+HXYhJWS5lSjeSOeyc22 3VbAsw5ekOMP9 nWQuNLpzQDK8X12xm1G6S LAyTYWxQUH5yER5fY8jcZ oigdblI8DysJWrFiK1ANP 7vOZttP8quXas zysppK5zDiu+X29PII2CY FTYUM9DLkf5E5YcDmzhmB I+FA25OKMbUD69kNDnsEB dt1antUq3OcYn FYUmAHB1uKynMBzhy5ZgY DDjO51xxJNwh7P2THAlrV wcpJOnBnBomYX2lM5aLLm kzybfd7ezvcqs Kpubc5puwj86lU02G58pW YnrKQAoUWD1BNLcPXGfuA xwvp8gdE5kSg5+JNrri2w fu4tgzTb2XzYc BCUplvTrtRdvXBI0l9SwJ v18F6PtrUzmm5HkMye7yd 22xEHrg4E9qXG5XHcqVVL vvP2nMSgoPyB3 ERHsCoSgoO94hHJpRPxmJ e0ubRylqSwdGY2oPGTisi vpUIBtnA9vXHRqiJYihOk wYK0oHMJfkhbh l961FgFkNRW8QNNxwYUgL 0FsxI7cZvNlOJSyMEAhL3 MfsJWyVYneC864WXvdNwM 9XHPobrLfI2Kc QYHgcBwaVpH6d0A8Ij9Cr 0EctkuuROX2YZaaRLNdDf C7XiFxNxH4M3RnVhu5IKN iqRlzJQ6nL9Bu WUDyqjxwmpeurZU9NYBwK GEsnP23dOWmMJpaEr5lp6 W9m397IQNoTMAmxC37Po2 udDogMTBwdCBU aU3wnpfyq8jeowqaHkBrO BZcVOn8MJg7AZElpFkzZf TcOPH0DhR5STQ8iQSjrC9 arXyotpxsyG8q Oyc+E87nkW0tOHZ8QPB8d xqfTRQysvCvDZ34DW37F2 RyPjwvdGFibGU+PGRpdiB ifLdhRY0gIdHu u9fvp4AdQQltY5McXMMrX DdaSsw6KGLrQJI8oKS6nX 7bELReGGrzn3A1qVB3S7G xfeQbgz1hc8bd NOFiLPgtD56khOUif9Q1U DRtvVW9ZIAkcArvIoKyxS 93Oyc+FGQguXide4HmGgs qw7jcu7kdiWo9 KgBpPEGtjvKfcSooAUJ0m 5SmNd22A31vRNbkOGVmYY HdMUEtTCUcmBgctz9qkI6 wIi8+PGNvbCB3 eZW1dX6mRANwWtN4SLrdT 782PdIpfYYxQvvqe1mrd2 lecLe0EoBtPVUgqwDmbNy jUUV2q8SvKo41 A05fWOyqBSSiBOKwWAUeS SGrqSrjre5laI6dBr7+PC 0aa1hzvp55lK54gOL+PHR fXUM9yVysDSyn EZPphJ6nIDgyFsY0YXJsS zNqvT21cPDlYBfcCz0gpB izeYnzDP3fSEXqtgeco69 4OjAlr3jmYPWl tRUwWUkoCTR4V02vt5G9Y KOwGWKtYBH2mVJ7jS1rbO lnbjogbGVmdDsgdmVydGl xNBheGOxjM138 IHRvcDsnPlBhdGllbnQgT hDyNYg7J3VpMga5SHQjwW xsPU0haCZcSTteKf8vnSt ymCagKD6iGYUn gkoms265YmUpx6myIHBor UJhRJkgMCN9L51vi1G6DU AyRQSpAUZ5iBB6hH9idPd nbjogbGVmdDsg vaLfeDzqVQnpDQboE631F HRvcDsnPkJpcnRoIERhdG C7QR10EP08iZEwh3Y4dXX 2O5ErOQNdiubp vkjulPD6OZTpEXBieC09L c6guZyqMi3lIBOmVDH1XV DenGIbI8YyuE3qJoJpNDK hQPSbT8PbaNFe ONuxG507WWtnBiR3THRqy rItI8AxMEGmfGxrQrR6x2 C0Vq0KZ7F3FB07MJ02lUY gk4Q4vJJ8H4Ek ZBSddviakzmvrYM0AFSzM UDxbH24Hn5itLozDi8oCM YnKJL9VEUaxWElL8MugA0 yOiAjMDAwMDAw T9CkhICaHLwmX580LZvkQ vP0OAMfljMwA7MfUNKifI ckTdS9t5R7Bp5MKFd4JN5 1LP99aRFdi0C4 wFU9N5OvOZHjenrwjoncf YD4UWUaZVYlsE70Ke1dkV arOy9dJPDfGRK8QOSdlZN yO9UqoC8nSiPz BXGnQPHsE2PfvABbNClxN 854XUqgYvW5RUNqnwDaY5 GuHNHobVukVeU7g8N1Dc3 NPVCaSH19VUF1 gKK3SR33NA14O8BqFxxre GFibGU+PHRhYmxlIHdpZH RoPScxMDAlJyBzdHlsZT0 kIy4pOZYtKLBh fCuzeKJsUlWxo5nyYFHjR JutUP8daAseK3PzsLJ7ZX Ovi2q7Hs20P05vS0FndBG +QLZoiOH8aLX1 qD5jLuDpYeK4CIdqJ780S fGgzFJtCmqkr5tyu5wvwD x7SfH2FEOmwtEwnYahPWS 6y5QrEi99K81i IHdpZHRoPSIxNSUiIHZhb Dwpeq1zsH7tBj3+PGNvbC Y7jPT3nA8mMeWgPqI7WZe nQ166CjCouGQm Hxvht6wtl8rqsIg4FdKbQ VMxorVxdZhgNFC3j9NnYd 23X9JmeJpym8NdCmy5ek7 3xJEyf5E9tQB5 R3YbANEpcynxaPRawGcoO K7kLMDudeeqGPKoiM4wWJ GqI1e6JaGqDlI2SZiuX6S vvnW9NDBvfGTs KIyvBCG7A09lh6Y2OYNcJ EDhPPA6zXE6lT6ncJxrna ogbGVmdDsgdmVydGljYWw dLFvtM416YLCo eKpyXFHdoL8aJOCsuRYnc ChyVI9rMLBxumqjHtLYF9 TUXTPtVOMZIOLSP8MwMDa PCrI9S3WlZit1 IRNmhGacBA8ivTNeGAasT s9imSwooPdgDT9wBFOhos tcSHZvfK9qTGRszOBaaFx kAM9sEJOshigr x885ClMxTEE7BDJtpJMzC 6WfsX6kRwQjUGOtPPDmB0 GjlUKoFIfjA857GNmdUgX 0FXGisjBxA1Ik MFCucGizOgR1j0T8Lr9gR N8eMt8dOLXoHE34DG73sW Wtx5G7dMT6S8EkYNXhmfk jtwwtzIS6YPFf NLVeuS06mFToEBliAd8if 5G3r975NSPhSFQueQ76Sg 2blRedBZGzoYNIxU4ehlz qi2gxiwceAiJg ZQIlWEb6QFs4WNKnpErcD aIvZWL3HjR6TSI1eIPeaO 0lfSyzyfhwnN0uViy+NjA uMZRoizV6H2Aj Dxh8PUJgjJegYM3nkPEkO NioTc0tdLoybSiaEK7wWD NugxcgTZQdqV1eSKIgkMF slJpsEN0mLYBr gksgr009RbDgKIE5EJIww EAbW6WxaN3kYaWmEBGfFH UaS1JrnLHzTPfyR931ALf tLxQ4GELdwrBs T1RbPJQbzXkuAgC7d4N9O e2NTW0QQUS6Y2OhTbe9DO PbtOzlON2moBWpALqrXr0 vyGwflWlfKQ7b ODElaosdQWAkvU3zXBCus YUnhGicTI9qBRUprgkbb1 54HeHqDYM2LNPdcHNeF8I bxY0lBiVoPFBb IUUsT8ButSScJTzsX315J AxpPbP2TAHdmeQiE0GwJJ RbbApgZrH1g2U5Gc0XzPZ gA5OoS6x9B9Lc PjwvdHI+FV96QVIbTG92o MZjcFZyy0ggjMr0HfBoBT PdGZP8pDsrYVnah8FtIRG kE52jfEMzi5C5 TUSlbFxblPOkBlCgdBG5d B5gNVlqdeaxs3nikhtcPk klx2mcqt18yL67T78lDMm pZHRoPSIzMCUi XVSksIdkpp5jtT1zVs0+P HLrpJL6tLI9nT0pYzQmKa K2JJxxA989ByZzhGIfZmn fo9vct3ltpKq6 PnIvNOEyozPugVcbYGW4q 1TpSa71O53rFQesPXNzOK WuPKLgJTYzuPpnnx9nlJ8 wIi8+OD2en6gy mk32oH60oMJ+BIJnSBT9i FceDTwfOUHqqN9yPKkvGj L9SLZlImVboH77mQCaMQg qGm6vrZisdWlb VG4nTLJpnfjbc173BdUyh 0fyDJXfoSXyQSzzTWB0X3 8ws0K8VQQwBSCgUCV3zLN 1uL4zyUrcnzje bGVmdDsgdmVydGljYWwtY LnpV203BOJvnUwaTcKbfI MoW5epymWWUA8wCrethSR +UIIqZUG8vAdf ZWfdOFBamR0lTBSzL3x5P aLsPfY9IEpyI4JwpiJ9FD RcgKVcFCWiaJQEmC0drdz ot1svdcdgKfOn EARjQTc7IOc2DSVvxKfcJ jHxGSN3TgP8HAV0bWXbuM 2hvAwoqaxonF0yOeb+Rkl OOjwvdGQ+PHRk GWK2bUvtDJmuKARpdF1nZ ZRzX8o0AmOlGfV6CCikZ1 AqaeH3XHSpaAXvHUOphWF MeD0fyytdt3dl indqOlFkWOWuOYw4NSf6S OWtzNuqCoPnQBG3HbM6HC B7cLRtkB1qlSloovpxlR0 wOyc+TVJOOjwv dGQ+QUHrPDI2cSdgWKanP JOgkF2lOSGrH7b4XoVgKg N2NIgbO2LytaO4YKOlfWY bWLKnoRCCoP5w vxdnp9zyzpyqImHjWVDrV Qu2IBq0KGKpxQdmQaHrHX T3WjR7SCL9nWHpmH1cqFj blmjqrE3kBki+ DTP4GOH3WL51ZR88D0YpR jwvdGFibGU+PHRhYmxlIH dpZHRoPScxMDAlJyBzdHl rOO9eWr9jRFKu LWN (more content not included)... [facility] Ambulance Noteon 09-14-2022 Ambulance Note [id number]#1. 00OTGTIFF [facility] .Auto Diff 1on 09-12-2022 Auto Borden % 7 % Normal 08-16 [facility] Comment on above: Performed By: #### 7 113072, [id number], [id number], 30726876, [id number], [id number] ####[facility] (DEFAULT)[address] [place] [address] Baso Abs# 0.1 x10 Normal 0.0-0.2 [facility] Comment on above: Performed By: #### 7 034083, [id number], [id number], 36381306, 4110708921, [id number] ####[facility] (DEFAULT)[address] [place] [address] 34101 Basophils/100 WBC (Bld) 0.5 % Normal 0.2-2.0 [facility] Comment on above: Performed By: #### 7 267691, [id number], 9571516773, 19905456, 6942637015, [id number] ####[facility] (DEFAULT)[address] [place] [address] 42343 Eos Abs# 0.4 x10 Normal 0.0-0.4 [facility] Comment on above: Performed By: #### 7 920686, [id number], 5573573964, 05089352, 1478814389, [id number] ####[facility] (DEFAULT)[address] [place] [address] 76336 Eosinophils/100 WBC (Bld) 3.6 % Normal 0.9-4.0 [facility] Comment on above: Performed By: #### 7 634633, 8473412353, 4199241314, 03920059, 5716318502, 1419047608 ####[facility] (DEFAULT)[address] [place] [address] 32252 Lymph Abs# 2.5 x10 Normal 1.3-2.9 [facility] Comment on above: Performed By: #### 7 361224, 1908742816, 8916800170, 10375254, 6439260494, [id number] ####[facility] (DEFAULT)[address] [place] [address] 91107 Lymphocytes/100 WBC (Bld) 21 % Normal 14-48 [facility] Comment on above: Performed By: #### 7 283224, 0577166177, 2111610107, 61461323, 3195969067, [id number] ####[facility] (DEFAULT)[address] [place] [address] 25714 Borden Abs# 0.8 x10 Normal 0.0-0.8 [facility] Comment on above: Performed By: #### 7 230245, 5317720447, 5151795354, 86281470, 3913800398, 8568772140 ####[facility] (DEFAULT)[address] [place] [address] Neut Abs# 8.0 x10 Normal 1.5-9.2 [facility] Comment on above: Performed By: #### 7 164928, [id number], 6690606476, 92419604, 1493243620, [id number] ####[facility] (DEFAULT)[address] [place] [address] Neutrophils/100 WBC (Bld) 68 % Normal 44-88 [facility] Comment on above: Performed By: #### 7 851809, 6581150528, 2070572265, 40121323, 5525315982, 8355581950 ####[facility] (DEFAULT)[address] [place] [address] .QC SARS-CoV-2 (COVID-19)/Fl u/RSV (GeneXpert)on 09-12-2022 Internal Control Pass Normal [facility] Comment on above: Order Comment: Order ed by Discern.[[email or web address]] Performed By: #### 7 [id number] ####[facility] (DEFAULT)[address] [place] [address] CBC w/ Auto Diffon 3 Erythrocyte distribution width (RBC) [Ratio] 14.2 % Normal 11.5-15.0 [facility] Comment on above: Performed By: #### 7 813347, [id number], 8307306746, 95371971, 4986652420, 0245267414 ####[facility] (DEFAULT)[address] [place] [address] Hematocrit (Bld) [Volume fraction] 38.8 % Normal 33.7-40.4 [facility] Comment on above: Performed By: #### 7 567325, 3224290132, 3187547481, 84536048, 2906753970, 2138354660 ####[facility] (DEFAULT)[address] [place] [address] 79804 Hemoglobin (Bld) [Mass/Vol] 12.6 g/dL Normal 11.3-15.9 [facility] Comment on above: Performed By: #### 7 654979, 1083780086, 3171170617, 45769721, 6582075189, 3871952849 ####[facility] (DEFAULT)[address] [place] [address] Instr WBC 11.8 x10 Invalid Interpretation Code [facility] Comment on above: Performed By: #### 7 238818, 3690478696, 5526999211, 21181248, 6332344299, 9975452684 ####[facility] (DEFAULT)[address] [place] [address] Man Diff? Auto Invalid Interpretation Code [facility] Comment on above: Performed By: #### 7 690915, [id number], 1342322088, 94388079, 3869062005, [id number] ####[facility] (DEFAULT)[address] [place] [address] MCH (RBC) [Entitic mass] 28 pg Normal 24-34 [facility] Comment on above: Performed By: #### 7 119934, 7866276985, 3513506183, 52975598, 3019254140, [id number] ####[facility] (DEFAULT)[address] [place] [address] 39212 MCHC (RBC) [Mass/Vol] 32 g/dL Normal 26-37 [facility] Comment on above: Performed By: #### 7 216379, 1957276541, 8980813366, 25394636, 1098461131, 9321607461 ####[facility] (DEFAULT)[address] [place] [address] 55029 MCV (RBC) [Entitic vol] 85 fL Normal 81-100 [facility] Comment on above: Performed By: #### 7 717512, 2494904487, 1891932269, 26336701, 6843662961, 3540681174 ####[facility] (DEFAULT)[address] [place] [address] Platelet 165 x10 Normal 138-427 [facility] Comment on above: Performed By: #### 7 420122, 0644292981, 4437077751, 36991648, 4651128168, 1869657789 ####[facility] (DEFAULT)[address] [place] [address] Platelet mean volume (Bld) [Entitic vol] 8.9 fL Normal 6.3-10.2 [facility] Comment on above: Performed By: #### 7 214172, 9409489070, 1818424246, 51673839, 0647131260, 4204948474 ####[facility] (DEFAULT)[address] [place] [address] RBC 4.58 x10 Normal 3.70-5.30 [facility] Comment on above: Performed By: #### 7 657834, 9107558807, 1475591027, 41926261, 1189025435, 3843530182 ####[facility] (DEFAULT)[address] [place] [address] WBC 11.8 x10 High 3.5-10.5 [facility] Comment on above: Performed By: #### 7 672161, 0752270854, 5741164631, 38584722, 7481327067, 9405059996 ####[facility] (DEFAULT)[address] [place] [address] CMP Standardon 09-12-2022 Breakpoint Chem Normal [facility] Comment on above: Performed By: #### 7 579063, 8733569475, 6149122929, 91849268, 4394225198, 9169994281 ####[facility] (DEFAULT)[address] [place] [address] eGFR Non AA >60 Invalid Interpretation Code [facility] Comment on above: Performed By: #### 7 015619, [id number], 5720000325, 15204992, 7364115393, [id number] ####[facility] (DEFAULT)[address] [place] [address] eGFR AA >60 Invalid Interpretation Code [facility] Comment on above: Performed By: #### 7 594267, 5537016027, 2186632905, 48063196, 6106066933, [id number] ####[facility] (DEFAULT)[address] [place] [address] Albumin [Mass/Vol] 3.3 g/dL Low 3.5-5.0 [facility] Comment on above: Performed By: #### 7 280432, 6791899859, 8665484696, 53671013, 1468111201, 3127062225 ####[facility] (DEFAULT)[address] [place] [address] Alk Phos 67 IU/L Normal 32-91 [facility] Comment on above: Performed By: #### 7 573329, 8009226430, 1070334160, 24621947, 9275174139, 5069515355 ####[facility] (DEFAULT)[address] [place] [address] ALT [Catalytic activity/Vol] 12.0 U/L Low 14.0-54.0 [facility] Comment on above: Performed By: #### 7 152342, 1791899574, 2776043771, 39075144, 0663632025, 4994021074 ####[facility] (DEFAULT)[address] [place] [address] 52660 AST [Catalytic activity/Vol] 15 U/L Normal 15-41 [facility] Comment on above: Performed By: #### 7 075090, 5853396100, 3697831387, 43652219, 5159826196, 6465224659 ####[facility] (DEFAULT)[address] [place] [address] 27381 Bili Total 0.5 mg/dL Normal 0.3-1.2 [facility] Comment on above: Performed By: #### 7 887424, 3174218207, 6562351762, 12129335, 7037076815, 3974153470 ####[facility] (DEFAULT)[address] [place] [address] 55586 Calcium [Mass/Vol] 8.6 mg/dL Low 8.9-10.3 [facility] Comment on above: Performed By: #### 7 954083, 9608269580, 8373660481, 24124124, 0160880996, 5212160280 ####[facility] (DEFAULT)[address] [place] [address] 96653 Chloride [Moles/Vol] 98 mmol/L Low 101-111 [facility] Comment on above: Performed By: #### 7 408147, 6383249064, 9719779763, 80738380, 5003806450, 7804717390 ####[facility] (DEFAULT)[address] [place] [address] 70717 CO2 [Moles/Vol] 25 mmol/L Normal 21-32 [facility] Comment on above: Performed By: #### 7 459696, 9881926295, 7808010689, 27654511, 7246126689, 8087708306 ####[facility] (DEFAULT)[address] [place] [address] 21448 Creatinine [Mass/Vol] 0.78 mg/dL Normal 0.60-1.30 [facility] Comment on above: Performed By: #### 7 713595, 1324635544, 0207715863, 30015979, 1868923697, 6167588876 ####[facility] (DEFAULT)[address] [place] [address] 53511 Glucose [Mass/Vol] 128.0 mg/dL High 74.0-118.0 [facility] Comment on above: Performed By: #### 7 146795, [id number], [id number], [id number], [id number], [id number] ####[facility] (DEFAULT)[address] [place] [address] 24620 Potassium [Moles/Vol] 2.9 mmol/L Low 3.6-5.1 [facility] Comment on above: Performed By: #### 7 439604, [id number], [id number], 24117030, [id number], [id number] ####[facility] (DEFAULT)[address] [place] [address] 36026 Protein [Mass/Vol] 6.6 g/dL Normal 6.5-8.1 [facility] Comment on above: Performed By: #### 7 233617, [id number], [id number], [id number], [id number], [id number] ####[facility] (DEFAULT)[address] [place] [address] 24949 Sodium [Moles/Vol] 130.0 mmol/L Low 136.0-144.0 [facility] Comment on above: Performed By: #### 7 912861, [id number], [id number], [id number], [id number], [id number] ####[facility] (DEFAULT)[address] [place] [address] 68526 Urea nitrogen [Mass/Vol] 12 mg/dL Normal 8-26 [facility] Comment on above: Performed By: #### 7 561614, [id number], [id number], 68271755, [id number], [id number] ####[facility] (DEFAULT)[address] [place] [address] 13717 Albumin/Globulin [Mass ratio] 1.0 {ratio} Low 1.4-2.6 [facility] Comment on above: Performed By: #### 7 415745, [id number], [id number], 30666874, 8094911143, [id number] ####[facility] (DEFAULT)[address] [place] [address] 14989 Anion gap [Moles/Vol] 9.9 mmol/L Normal 5.0-19.0 [facility] Comment on above: Performed By: #### 7 031353, [id number], [id number], [id number], [id number], [id number] ####[facility] (DEFAULT)[address] [place] [address] 91134 Globulin (S) [Mass/Vol] 3.3 g/dL Normal 1.5-4.3 [facility] Comment on above: Performed By: #### 7 514400, [id number], [id number], 17514961, [id number], [id number] ####[facility] (DEFAULT)[address] [place] [address] Osmolality 262 mOsm/L Invalid Interpretation Code [facility] Comment on above: Performed By: #### 7 187430, [id number], [id number], 01565907, [id number], [id number] ####[facility] (DEFAULT)[address] [place] [address] 50812 Urea nitrogen/Creatinine [Mass ratio] 15.3 mg/mg Normal 4.6-16.2 [facility] Comment on above: Performed By: #### 7 601983, [id number], [id number], 09509445, [id number], [id number] ####[facility] (DEFAULT)[address] [place] [address] 55095 ED Clinical Summaryon 2022 ED Clinical Summary [facility] - Emergency Department [address] [place], [place] [id number] ED Clinical Summary PERSON INFORMATION Name: TAMIKA MYRICK Age: 62 Years Sex: FEMALE : 1960 MRN: Acct#: Visit Reason: Cough; COUGH, SORE THROAT Arrival: 09/12/2022 10:17:29 Discharge: 09/12/2022 12:40:00 LOS: 000 02:23 Check In: 09/12/2022 10:17:29 Checkout:09/12/2022 12:40:00 Address: [address] [place] [address] PCP: JUSTIN ALVAREZ PROVIDER INFORMATION Provider Role [...] mg or (more content not included)... Normal [facility] ED Note - Physicianon 2022 ED [...] History Surgical history: TL - Tubal ligation ([id number]) in 1987 at 27 Years.. Family history: Emphysema of lung Mother Diabetes mellitus type II Father CA - Lung cancer Mother COPD Mother High blood pressure Mother Father Stroke Father Heart attack Father CABG - Coronary artery bypass graft Father . Social history: Social & Psychosocial Habits Alcohol 04 (more content not included)... [facility] ED Note-Nursingon 09-12-2022 ED Note-Nursing Patient arrives to the ED via [facility]. Alert and oriented X4. C/O cough. Patient reports having flu like symptoms for the past week. States symptoms have improved since last week. Reports being prescribed amoxicillin but has not taken it for a few days. Reports cough to be productive. Reports having fever previously to today. Denies taking Tylenol or ibuprofen today. Reports having inhalers and nebulizer at home. [facility] ED Patient Summaryon 023 ED Patient Summary [facility] - Emergency Department [address] [place] [id number] PATIENT DISCHARGE INSTRUCTIONS Patient Information Name: TAMIKA MYRICK Age: 62 Years Date of : 1960 Reason For Visit: Cough; COUGH, SORE THROAT Arrival Time: 09/12/2022 10:17:29 Primary Care Physician: JUSTIN ALVAREZ Attending Physician: Milton Bhardwaj MD Comment: Visit Diagnosis: Diagnoses This Visit Bronchitis (J40) Cough ([id number]) Elevated blood pressure reading (R03.0) Hypokalemia (E87.6) The Pharmacy at [facility] is open Saturday through Saturday from 9A [...] alcohol and/or drug addiction problems; contact the [facility] 25/02 Crisis Hotline -Text 4NNFM wt 547675. If you received any narcotics, sedation, or [...] legal documents With: Address: When: JUSTIN ALVAREZ [facility], [address] [place] [address] [phone] Business (1) Within 3 to 5 days [...] days sent to our pharmacy here at [facility] for you in addition to Tessalon Perles [...] and treatment you received today in the [facility] Emergency Department were for an urgent problem and are not intended as complete care. It is important for you to follow up with a doctor, nurse practitioner, or physician?s assistant paralegal for ongoing care. If your symptoms become [...] so we can reach you if necessary. [facility] Emergency Department has provided you with a complete list of medications post discharge. Please inform your program coordinator executive education/provider of your visit and for further instruction on these medications. Any specific questions regarding your chronic medications and dosages should be discussed with your primary care physician(s) and/or pharmacist. New Medications [facility], [address] [place] [phone], [phone] benzonatate (Tessalon Perles 100 mg oral capsule) [...] home medication (more content not included)... Normal [facility] Extra Greenon 09-12-2022 Tube Collected Yes Invalid Interpretation Code [facility] Comment on above: Performed By: #### 7 [id number], [id number], [id number], [id number], [id number], [id number] ####[facility] (DEFAULT)[address] [place] [address] Lactic Acidon 09-12-2022 Lactic Acid 8.5 mg/dL Normal 4.5-19.8 [facility] Comment on above: Performed By: #### 2 [id number] ####[facility] (DEFAULT)[address] [place] [address] 11522 Mycoplasma pneumoniae IgMon 09-12-2022 Internal Control Pass Normal [facility] Comment on above: Performed By: #### 7 086923, [id number], [id number], 24486945, [id number], [id number] ####[facility] (DEFAULT)[address] [place] [address] Mycoplasma IgM Negative Normal Negative [facility] Comment on above: Performed By: #### 7 359991, [id number], [id number], [id number], [id number], [id number] ####[facility] (DEFAULT)[address] [place] [address] XR Chest 2 Viewson 3 XR Chest [...] MD 09/12/22 10:57 a Technologist: Sommer SAL [facility] Coding Summaryon 06-18-2022 Coding Summary HTMLBase 64 NxltrzhsLJo8mRu+PGhlY WQ+YC9NJQUeF60gwPJkfR 7OS5gYLS4UUJOFWSAUBO4 DLQ9xmSZ6BSdjF2IzrqYb DzhnmOKkNR30KAh4SXA3n LkkANnbxT6huUQcN0r8Be KdGL27rY21DHqzQWXzThP 3LjZpbjsgbWFy W2vtOqVvmGLvBnj+PHRhY mxlIHdpZHRoPScxMDAlJy ZddZaaGP2mSw9zVXZjHDX vbGxhcHNlOiBj u7naRLUoGEyyUY9wuNrhA 2GejSE4QMBkb9t0Ct38vV I+CZToBOE5aYldFZppk74 5NyZdg0twPRA8 xXXqBQzaHSQ7J62sc9G6U RQnQCKlITO7pVE0mH4jeY tvvgogI0FmwVSeBsB6CRW 0iCJgqK4ncUrj ixutpS0pBlm+H73AAH0OM UVAOD3JRbh7J6XhEkbdsG I+BI20NWNlGS91pWEueKT qo3zkmMq5GgJu UZZoRGB7rNfqFFzyb6SoZ MErP17leJQiy5M2OVHmjU yjhXUtTfWseDQ7lE1fHFh csphnw5bthcfk Zaqws4kvel83iZ58Q45sI UirPNFcWXW1INTkXCVlbF uyor3zcV2pGu8+FIbcz9i hb4ddyRu3GbXm GHWjcpDnfBqvJNJ9w0LnZ q02P1RmfIutv9RuUkq9fw 97bFZsq5Q0sAI0VVoaYXB gcW1oMNcxZtT4 NMAyLhVwhG15fMFdNRacH t9rvVbegObxSO2hAIDucr lxULBamV6oRSDvnQGarXs kAH9wARSbyfdw p828NuYgRAN1HLRrsKGiO 7CphK0zSjQwGLEfKMZyV5 MwzCTnPEbxX009WFopGnT 1SJJvlmPtV2Oy AFAkgKeyEdG7e7K9Kb0Nn 1UwddhlRCC2HMwlEWZfOh Y2PaNeEeA6U9LnFiy5FWI lwGvoUF3hY1Og AFHimlhdvtbodGE8DZGiO EButX74lCRvVVmxRm9ny1 A6h912AHFrDMPntB56Zk1 udDogMTBwdCBU kA9ipywaj3xcavffEmVoW IMqCBk5DWu2QZJqnGqmJq HbYOX4WvG0VUS6pQTlcP5 yhZjovxmxxQ4h Oyc+G71inW5xCSU9HWZ1i wywMBZzyrIoEL85ZF27T1 RyPjwvdGFibGU+PGRpdiB nfLtpYB0pXzOx l6wua0AaFEbcR2JyVTCbM QtuUlg7MENcDSM2jHQ8pI 3hSWOlWWioi8G3mNJ2I6O sgqRnbb9vx3nf XHUzVQdyJ16eiMZxq3Y6P FPjgPX6GVDieOozZmQgnG 93Oyc+NGHigFhbm9BgUik lc0qiv1hwfCr8 SvNoMOQnmsTzwTneXYG7l 4TsIn13K59xKGxyHIGfQU UjBQAsGDLsxRcvou0aoF2 wIi8+PGNvbCB3 nBK8zD3xBQPvNdE3HDjuX 257HpObjAZwBucom5vig8 fyhBg3XnLvZEBxkjFjbIn vDCY7h5LfQg79 G99kNQfaUACwPSStXDLmN TSafSyauz7ltN2xQb6+PC 2ba0pduk23aG68yIF+PHR nPKT4qRqtUNwt KZLfaE9dPYcnFiX1VVKyU lTkfU24wADcPOyrHg9xdY nnnIsjQX0bSEJgjdibl03 5KcZsn0meJQEd tEOiOEgbBBX2A40rv7I8Z WKcBEVkWIJ5bGZ3cX1goZ lnbjogbGVmdDsgdmVydGl yQIfsDFipZ986 IHRvcDsnPlBhdGllbnQgT jOeACo5X9OrYid1YHKjxA zzCK0ywNPyIJzmHh3kaLl jxSxsBT2kFUWs srwjf072BzLko9zzMGZrb ESwRLcfWHJ1C30le9F3CH DhBBJtJXX3wRR0qJ7ivEc nbjogbGVmdDsg hbNymUakGNmsMSgmY274M HRvcDsnPkJpcnRoIERhdG R4NT72TS73yLOap7O4pIZ 6U2KlCFBfmwkc uqribIM7NRJmCPGykA04T r7bdVmgMd2dKYGhEML5QB WbjJVpC3JyzJ2kXvKbSHX fDKWgK7AopNQp ICgvT406OIiqOgZ0XZWtj cNsL9WhQEOojEjgReN7j1 M5Fg4CZ2S6WF40NU52nMO lr3I7sWK1A3Ff KGMkdijnttbcuNV6VMNeF SUahI85Ur8osXhkPk4aDX LhSSV2KUEysSAsR2AokR9 yOiAjMDAwMDAw H5StdYPoCJsuK768JSirI kY1LVNoijLoE8WgMLFhcZ kdCzC8g6F2Ih4MXBk6RK5 4TS87dHSeb9U5 vDL6F1NuLNTdrzxfxykuy OT9KQKuCUHxoC75Et4wbZ uqTm7tAJIkEWF0ICNeiWP nW2IdmD9iFrFj GVEzXYQbK3NmzYGiIXuqY 017MNzsAmO6VCIoeaCsA4 NoHXCzlQuhXnN7z3Z4Zc3 TJDKlOG18ULP5 sWZ7AC16BN86H5VaQkmnx GFibGU+PHRhYmxlIHdpZH RoPScxMDAlJyBzdHlsZT0 xAh4pTOQgRNSp sVcgdZIrPiYni6jeIHDrZ VezBW0tqHazR3JspXZ6MS Ewc3b8Tj31V15xL9HtyOG +GCVyhJM4hRZ8 cB3xRpLfJcI9MPcdF118C hOjgPKuThgzi9abr9tgsD c8AtK3EINcjoRkuYpdBTH 6g0NzCc15Q82i IHdpZHRoPSIxNSUiIHZhb Jmehh8diE5gPb8+PGNvbC V5pUS8pH7bMoJvFgV0IGk vM838NfMcxTKs Qewem6ymy1tfiTd5DtQvX NYpuzLptUmuNMQ4a6XyPt 10A3JpkJsal4UaCba0gr1 3wZDgd2V4zSZ9 N3MuIWKizkmcrWIleZjsB G9kNIJhwxymLRSnjG1eCG SlU4r0WcGlKsW1RHxdD3R lhoH9UURfyKEi DLzbOZF4T49zs4W5NCFbJ RNdBLY3wYH9yJ6ptXgszk ogbGVmdDsgdmVydGljYWw kRQajZ672WCFv dLvfYBKbpH3hKJPbbNGeb BvtZI6sUQDcemwvXlPXV5 ELHWWlXVEVHCVES0GmFSy RBfZ5G8ZdSqk4 JEDfbPbvZF7ikRLySUwyX d8tlErweDlnVM2pNFMhgn suYTAosQ2yWGJldPIuvGo fOR2zWXIrkeir b613SrVgDIQ5MHLqfBCaH 2YypI4hWrVfOLPeLUCsS2 WsgBFsXElzC859JXfbZtK 7XOIjqtJhE5Ke BDDzyHyzIoZ6v9U8Hv6aJ D0lIb7yVWTpMB20CK42yP Swr5B8mSB5T6JoXAOsmrn dacmjmYF1QSIh JLJdsU90fLDyOWglJp5ax 8X2s759ILYpMBSvsO89Lb 4zfBlyZDJbiBJByS2sodk aa7gxedsoGyQw RMJkONp1MZc3CDMgxJlrE oBbRBX9SyU2VHJ2oTHpkH 1bbOzrptiduR3sYzr+NTk cAOUohuE9E5Cd Knd0MBOygDytGY4fqOEtR KcwMj6wzVmrlAcyFV1yIC WetdipYDFopJ7hXMTnkYD qnYsyMF5iHHYf odokx392TjBtKOO3FGPvv TGjQ7DabR1tDhUjUKJvGW PyO5KibJNoKVxlM203QIg qIiT2BMTphlIt J4FoXIPbzIwqWgK4n2U8P z6YMV2VGKP7W9VjLst2FT CmnXjgUS1mqQMxPRrhBt4 idCxmuSkkEJ7f MAEuhaxvUUMeyO6kBMVma OBmhDwvTI6sTOJhgbprz0 64ZkTeTHK9RUSquARcB2Q spX6pRoCoTWZq FFToQ1QuwWLwUMtdP344Q HzoCuC4SEWysvSzT7ZnJF XmiJrjNhY3p8I8Bd1IIUq vdGQ+GQ61lf03 R3GgFshlZah8OAJgNRD2a PS1zZ3lUNDrNJxrg2Y0fV P5I0FfzdKdao5po0zmAKK hSNwbY38meWSe x2L2BSMhwKH3VUXffCfaS pUngN86Wic+PGNvbGdyb3 IsQqdro6dee9psaRu9OrX wJSIgdmFsaWdu VPQ5g5QvPp03N42sVWdtD HRoPSIzMCUiIHZhbGlnbj 7dcY4kNw5+HSXcvQD2oFC 3wW1xEiRuPiJ1 VNtkQ691HfImmDVxAjqpy 2xmd9bryNb5LcAwAFBitc DkePcwNXC2p4XsEe91Z9G mdRbtn5VfFvn7 ic80tHUcw4O7jYC1N0MdA TTrtpxcyDWcrKuiPX6oAP QjimvoVZUieK2hDUFhT4d 5MvTeDbO2HZqr E4QdtgT7KAIxbZFzOJNgo RZIpF6rjftnl5wrwjpzDz SmGNEwJDc4YSm9FSAaiAd uQjWmNNU9GeO9 PFJ7iBHueC3lmGxupbpne G9wOyc+XQs6k0dixVFmBT 0keYJ0NA11GX75bYZxz4E 9yWY5B8WvUGWf dyvkkrvgjUQ6MFRiDPUkv X86Gq6hzHwrBi3fIFHvJK L4RBNwxBBfU5RciN0zOhD pEHPzVNNfM2Uq wWAyLPwoE539FZnsFjL4G QKjtbUfK6JxMAMivVyzMz P9u6P3Sw6GNL81OZ10WV9 1xCCsv2U1mVG9 A6LzQWUjjkqtpulqyPM7P DNbVOAkdJ58Gm4plJqhEl 3fJWToWAY1YKHfiVWhX9H euN7hDqCkDPTm AWYiC8LqmUQuXGdmJ027S VuxZjG0UIBicxJxB4RdBW EtaWajPgJ7m0W9Bx2VSu2 0NW71DZ80tKYd v7P7zFG8U4PpJIPgkivvp gajcJU3LJNxWUNvxK03Jr 1jcQrwCz8iHYUsVFY2KZV oyEQkN4OedX1z NwOmZDKzJJLfJ0RkePAkB VulE674UDnhPnX1KMJrhq RcA7FwUDXwnPywSiO8c1N 2Rg1RXLdcxxf0 A0LlXciehGA+IJ63UYQbD G38iWIemGPcu1rasWc6Fy IuRSWlTDR9nFizGEdnd2B jQLZzW09tcFAl c2U (more content not included)... [facility] Provider Orderson 06-18-2022 Provider Orders [id number]#1. [id number] [facility] XR Knee 3 Views Lefton 06-15 XR Knee 3 Views Left EXAM: XR Knee 3 Views Left INDICATION: knee pain COMPARISON: None. TECHNIQUE: Radiographs as described above FINDINGS/IMPRESSION: Mild medial compartment joint space narrowing. Tricompartmental osteophytes. No joint effusion. Final Dictated by: Taiwo Bill MD Dictated DT/TM: 06/15/22 7:41 Signed (Electronic Signature): Taiwo Bill MD 06/15/22 7:42 pm Technologist: LOU MATHIS [facility] Miscellaneous Testing LCon 0 05-03-2022 [facility] [place]. Test Result LC COMMENT Invalid Interpretation Code [facility] Comment on above: Result Comment: Test Ordered: [id number] Alternative Pathway Activity Alternative Pathway (AM50) 134 Units/mL [facility] Reference Range: 77-159 This assay is used for clinical purposes and was developed, and its performance characteristics determined, by [facility] at [facility]. It has not been cleared or approved by the U.S. Food and Drug Administration. The FDA has determined that such clearance or approval is not necessary. This laboratory is certified under the Clinical Laboratory Improvement Amendments of 1988 (CLIA-88) as qualified to perform high complexity clinical laboratory testing. Performed At: [address] [id number] Merline Jarvis PhD Ph:[phone] Performed At: [facility] [address] [place], [place] [id number] Elio Orellana [facility] Ph:[phone] Performed By: #### 1 [id number] #### [facility] (DEFAULT) [address] [place] [address] Pneumococcal Ab (23 Serotype ) LCon 04-24-2022 Pneumococcal Ab Type 1* LC 0.4 ug/mL Low >1.3 [facility] Comment on above: Performed By: #### 1 [id number], [id number] #### [facility] (DEFAULT) [address] [place] [address] Pneumococcal Ab Type 12 (12F)* LC 0.6 ug/mL Low >1.3 [facility] Comment on above: Performed By: #### 1 [id number], [id number] #### [facility] (DEFAULT) [address] [place] [address] Pneumococcal Ab Type 14* LC 1.3 ug/mL Low >1.3 [facility] Comment on above: Performed By: #### 1 [id number], [id number] #### [facility] (DEFAULT) [address] [place] [address] Pneumococcal Ab Type 17 (17F)* LC 0.4 ug/mL Low >1.3 [facility] Comment on above: Performed By: #### 1 [id number], [id number] #### [facility] (DEFAULT) [address] [place] [address] Pneumococcal Ab Type 19 (19F)* LC 1.7 ug/mL Invalid Interpretation Code >1.3 [facility] Comment on above: Performed By: #### 1 [id number], [id number] #### [facility] (DEFAULT) [address] [place] [address] Pneumococcal Ab Type 2* LC 1.6 ug/mL Invalid Interpretation Code >1.3 [facility] Comment on above: Performed By: #### 1 [id number], [id number] #### [facility] (DEFAULT) [address] [place] [address] Pneumococcal Ab Type 20* LC 0.2 ug/mL Low >1.3 [facility] Comment on above: Performed By: #### 1 [id number], [id number] #### [facility] (DEFAULT) [address] [place] [address] Pneumococcal Ab Type 22 (22F)* LC 0.2 ug/mL Low >1.3 [facility] Comment on above: Performed By: #### 1 [id number], [id number] #### [facility] (DEFAULT) [address] [place] [address] Pneumococcal Ab Type 23 (23F)* LC 0.3 ug/mL Low >1.3 [facility] Comment on above: Performed By: #### 1 [id number], [id number] #### [facility] (DEFAULT) [address] [place] [address] Pneumococcal Ab Type 26 (6B)* LC 1.6 ug/mL Invalid Interpretation Code >1.3 [facility] Comment on above: Performed By: #### 1 [id number], [id number] #### [facility] (DEFAULT) [address] [place] [address] Pneumococcal Ab Type 3* LC 0.5 ug/mL Low >1.3 [facility] Comment on above: Performed By: #### 1 [id number], [id number] #### [facility] (DEFAULT) [address] [place] [address] Pneumococcal Ab Type 34 (10A)* LC 0.2 ug/mL Low >1.3 [facility] Comment on above: Performed By: #### 1 [id number], [id number] #### [facility] (DEFAULT) [address] [place] [address] Pneumococcal Ab Type 4* LC 0.2 ug/mL Low >1.3 [facility] Comment on above: Performed By: #### 1 [id number], [id number] #### [facility] (DEFAULT) [address] [place] [address] Pneumococcal Ab Type 43 (11A)* LC 0.3 ug/mL Low >1.3 [facility] Comment on above: Performed By: #### 1 [id number], [id number] #### [facility] (DEFAULT) [address] [place] [address] Pneumococcal Ab Type 5* LC 1.1 ug/mL Low >1.3 [facility] Comment on above: Performed By: #### 1 [id number], [id number] #### [facility] (DEFAULT) [address] [place] [address] Pneumococcal Ab Type 51 (7F)* LC 0.2 ug/mL Low >1.3 [facility] Comment on above: Performed By: #### 1 [id number], [id number] #### [facility] (DEFAULT) [address] [place] [address] Pneumococcal Ab Type 54 (15B)* LC <0.1 Low >1.3 [facility] Comment on above: Performed By: #### 1 [id number], [id number] #### [facility] (DEFAULT) [address] [place] [address] Pneumococcal Ab Type 56 (18C)* LC 0.2 ug/mL Low >1.3 [facility] Comment on above: Performed By: #### 1 [id number], [id number] #### [facility] (DEFAULT) [address] [place] [address] Pneumococcal Ab Type 57 (19A)* LC 0.7 ug/mL Low >1.3 [facility] Comment on above: Performed By: #### 1 [id number], [id number] #### [facility] (DEFAULT) [address] [place] [address] Pneumococcal Ab Type 68 (9V)* LC 0.9 ug/mL Low >1.3 [facility] Comment on above: Performed By: #### 1 [id number], [id number] #### [facility] (DEFAULT) [address] [place] [address] Pneumococcal Ab Type 70 (33F)* LC 0.3 ug/mL Low >1.3 [facility] Comment on above: Result Comment: *Thi s test was developed and its performance characteristics determined by [facility]. It has not been cleared or approved by the U.S. Food and Drug Administration. Performed At: [facility] [address] [id number] Jose Carlos Tavarez PhD Ph:[phone] Performed By: #### 1 [id number], [id number] #### [facility] (DEFAULT) [address] [place] [address] Pneumococcal Ab Type 8* LC 0.3 ug/mL Low >1.3 [facility] Comment on above: Performed By: #### 1 [id number], [id number] #### [facility] (DEFAULT) [address] [place] [address] Pneumococcal Ab Type 9 (9N)* LC 0.2 ug/mL Low >1.3 [facility] Comment on above: Performed By: #### 1 [id number], [id number] #### [facility] (DEFAULT) [address] [place] [address] Immunoglobulins A/E/G/M, Ser um LCon 04-22-2022 IgE Total LC 106 IU/mL Invalid Interpretation Code 2-548 [facility] Comment on above: Result Comment: Perf ormed At: [facility] [address] [id number] Ruben Elias MD Ph:[phone] Performed At: [facility] [address] [id number] Merline Jarvis PhD Ph:[phone] Performed By: #### 4 [id number] #### [facility] (DEFAULT) [address] [place] [address] Immunoglobulin A, Qn, Serum LC 167 mg/dL Invalid Interpretation Code 89-146 [facility] Comment on above: Performed By: #### 4 [id number] #### [facility] (DEFAULT) [address] [place] [address] Immunoglobulin G, Qn, Serum LC 601 mg/dL Invalid Interpretation Code 583-4632 [facility] Comment on above: Performed By: #### 4 [id number] #### [facility] (DEFAULT) [address] [place] [address] Immunoglobulin M, Qn, Serum LC 60 mg/dL Invalid Interpretation Code 26217 [facility] Comment on above: Performed By: #### 4 [id number] #### [facility] (DEFAULT) [address] [place] [address] Coding Summaryon 04-19-2022 Coding Summary [employer] 64 AwnltgsgBGy4nMs+PGhlY WQ+XY5LODIpS50tlGKafW 0QQ4pIVR3MJAYEFXVPRN0 ZKW5ewAU5BFwdY6BpkiQc NfpafTAyOG80XRg0LXV5t WokMYwwrR5rjFLoU3u3By CtTK85wM81SKneWRGvHfC 3LjZpbjsgbWFy N1hhFzXstSSxFwd+PHRhY mxlIHdpZHRoPScxMDAlJy DmkJztKN7eQb5gGPWcWTG vbGxhcHNlOiBj h6wcXMNaCBbnKV6prCbnR 2GvgDR0PXMzk0i4Wk06kS I+SGOuVWV2mXfcRKcnk70 8AgUhc1kbGUI3 yISkHGwnWFC9H87js0R7V NNcHQGdKYM0sEM6eI5utH gvtkudQ4IjhJTlViL6DGG 4kKGgdE3diPro gsllwH1xGjd+J46ZIN6ZO YQFTQ5FQxk6R3PqSdhnzD I+DY22MVYaMC26sMZlzFD nf9hekUv1MdXe QSEbOVV0sEpcCNfbc9UdE LVbX54cqOCze3G2OENjvW ddnGCjKsTnyPQ9qW9hUUf tekmnh0acbbvb Emvwr0udqu58sI51J45pH XvzIXSbJJV4AFTwJVVhoA xyja9egU3bMy2+HPikz3f ur2zfbYi2OvRv UWFkhgKifCkhPYJ8c7FoP x78T3OsuByth4LjLeo9ge 94jWXpt4Z9aDD5VZptBWI siI1xEJqyBkV5 XZHjCsPuyL30rBEoDUzxO i0kjCvqvZuuGI6iUPEzjd ppNXPzuA6pJMGewVOxpTi hXN9yVQDbkfwv u540AcOmTMY0OJWewKEbU 1BcnM1tGiZiQYQfSCXoS6 YrxBUcKOoaD961ESwcGrM 1VXNkuyOjF0Xm RTTjqMrsNpR2u4X5Gj1Tf 0UlhtiyKVM7QQuiING1Ae N5ApGkIsH8C1UwNuj2HDE prOoeIL3qC6Jm LKZalysfimwolTU0WPCoH RVvvV15bTFaSXmvRi7og6 X8p384RGXhXOKcdW66Kh2 udDogMTBwdCBU lP5ueckat5hpwlsrEaSlO OVuQXo6FOn3BBVkrVorOn IlTQQ0RmI9SXK5xDHccY9 mcAercilxvX1v Oyc+R98teQ5tQMU4GRO5m csnJGTiwvIjRS17LF02D5 RyPjwvdGFibGU+PGRpdiB szCjqMI8kWmZj l8oja5JzPKdvC5GjUNLaK LxoYuk8BASuJZP7vTA8fT 4nOWQiWQjpb0J2hRF9S0L dkwExrh4go7df ZUWmOAvfA31ohIEfy8M6K ZGmtFL4PXEotKddYmAgkE 93Oyc+QOTitKbjs3HwGyu jn6fii5bkdIh0 RnKgRCApmaFdsXbwBAM9m 1BjKx31L45wCVjeKVEpHI QhYZIqWENdeAgong8ftQ8 wIi8+PGNvbCB3 pFG8rJ2tWVUdRgJ4QRojS 711QeJpwGIjDohhq6zac5 xeyVe6RyDoGMYzptDcvBj fZMX4i3VkGv14 U22cNAnvUUKfGAFbAVXcZ HTbfMoout7rcF2eVs7+PC 8tn8javp88bR87tNA+PHR rMQZ8pSeoSPsj QFOybH4uCNagVlX7ZKAkP lZvzW85sQInJQtkGt2agC ovgSjrVB6nOQPmsrcrb76 1NjJza7znBKIe eCCwRZsyLZC4C70eg7Q9B UVnGJNvONV8hEX8iB1xjU lnbjogbGVmdDsgdmVydGl aHWweQZaiT934 IHRvcDsnPlBhdGllbnQgT yEwBGe0R8DfAok8TMAizN znNP8wvTKfMNjuNw7ftCr wvPgdSM0pLQDp tancd133YeGmz2qzDYRxt ELhCLvwJQJ4A96vz7C5VC FbXINiMIX9oOA9sJ2smTv nbjogbGVmdDsg mtEndGquWCpbAPgwB272I HRvcDsnPkJpcnRoIERhdG Q4LU28AS70wOOlf6E6zGB 2C9SiZTZcapbu zmnavSQ3PZUyJBHrnR78P c0erYgwTt4zKAOrPGS9NX XrwQByQ1LabS0vIvFwBTF tYPHjS2ZgvLEv CNwtB136IBvgKxJ2FJHxg zQmJ1YcLWRoiChuIoS6l7 A2Cq5JU9U8MZ05AX67cIY gq1L3jHY9O8Tl AJGxsgckbzbixYY9XFOpK TVbjE48Hc6bdUqtKv9jOQ ImFIY3FGUleMQtL4FlsS9 yOiAjMDAwMDAw H6NqeYIgUVtoY538ZCuiP zL6SSVebiRsF5ZqIUXzrT ksXmZ3q4L3Lm0WERt5WJ6 7DR29hNPiw5O3 yOR8T0IrKOTdzkiplzahy DG3BBXkSYQkpV61Ju7faO xjDr7pDAXsTLI5OYVfxMF kF2SafX8gSpEt IASgDBAhW4QpvODcLLqyR 224CDfoKaR6ZZKkmlWmI0 OmBRUhwIfhKsH2c0Q7Bp0 RGGIrTX70CPG9 iYY1RU37AZ00B2ElIlzfq GFibGU+PHRhYmxlIHdpZH RoPScxMDAlJyBzdHlsZT0 wJv7qYLCmDOQe wVakbFOxXsSsa8emAXPeJ AyqWV4igTrsC0KiyBR4IZ Qdo4q6Aa71O85uD3YbyAX +SXOlfUT1yFQ5 iX7dWlBlDlG0WAkqJ765L zSjiAAdOwsis6oxu9ltxT k0BhA4TIVbreRrvKjwTFS 4l0QdNw27Z67y IHdpZHRoPSIxNSUiIHZhb Otolv4nkE2pBn1+PGNvbC A8gDN6kX6pHgMcLqX3SDy yM622BkEdlFFf Njymt4atw8sujUw4EdYpF ZMgamYowTuxTQH5z0DrFm 64C2XvtIrrd1NwNcy9gx9 5bRZwm0X0jBV1 R7OwAWGhnulyjGZymPpuB Q0aQMUgyogoGUBxpK9gLM UpR9h2VsOjYjU4QQelV5Y uhtV8OABstKUy EFbfURN9Z48cb6J8MXWhZ KRsZIF3zED6sM2axHlawo ogbGVmdDsgdmVydGljYWw gSLonO774BHWl zMvyEFPoiV9qIVIgpLWiu BgjZH5aWTCaakrnVgDWV0 HBASClAAYPNEJWM1LvCSn BKgJ3X7HlMwd3 ZKQloXcnMH7dgBRuTYujP a3fsAcuhLonTZ6vLELisz kfFZIahX5cFQMvcLHkmAf gLI5aYVEsawig o749QmVrTKH0WHPhtPOkB 9PhtZ3bSbCuXIWbYHRcF5 SfqYZcISzpU567FRneDpZ 4GELdoyCvC2Nl AMEfuRgoSpP4k4X9Ci1gZ U0jNg0rEONfOE32TA27qX Utr5N1oDV3U1PeYGFbidh xpimjxDB1XHFy XWXzaV47rANzSNraKq2vu 6V2q605TNEbSUIbwD52Dn 0rzObdHULyfKNKgD6vwtl pr8zyhpegItIx HWRxQQr2PFb4EELutVmeX tGwEVJ7MlM9NXT6lGGhsN 7cdGtcsuhtpG5kMqh+NTk rJEVfmgH7M0Sz Taw1BVXgtPthXD7ssTQoO HmzEl5yxDdxyMllWN7kQZ GqfjslXXJjfH2hVILsrXC nqGdaWI7zKWSq faywg015HyEbVPE6HEWyo PLiL5JwoV1cXnWoAVIwRX YpK0KxiWOxLMavY454ONy sIyA4PNBkmiMq T8KgABRqjXcdGdX5o6I3X c2DQF7CDLU9R1MmQjh5MD AttSomIJ6nbLAjNMyyAf1 iwNukcJqkXK0n ZKUyhzpdALPpmR1zDJSdf QWmbRvdMW6lCJOciygvk8 00WwUdFWO2YYUjtBMgJ5D qaW3eXySiQIGw GZKfB1RdwHRkYGcpO822R KavWpL1DPUzulIiR8NvQA AfmDmoLzK7z4N5Eo8SXHv vdGQ+WH78de10 G6ChVlgiLci1JBEhITY1j SN4fN0dHVVmLFndx4P6gK T0Q6RzluHofh9wa8ocAMY sMZjeZ05blMDo p5K8IZGadNV1ETYnpIvkN jWyhM84Kyp+PGNvbGdyb3 UdUhfmp9xod3cqqFs7ZhL wJSIgdmFsaWdu MOD2l9YkJc98H16rJWbiY HRoPSIzMCUiIHZhbGlnbj 5vnV1lMj0+BKMeaKL9rMB 7zX8wPlDrXeE1 IDpoP483BqUxgJMbZyedv 1gcp8ksyDy9ZxYtHDDmsw FwdIerBAO1d6VdSc15X6Q llMfeh4CdTkg7 kr57lLAbf2U6eZX6G3NqH HGttmblcZJidSdrOD0fXK JnvmrzVNZenK8cVIDiP9t 1UyDePtI1GBuq Z0RsreY7ONVrzOZhRMAao RTVxQ3axovri3hlsqzwEs PfPCIsIOu3NSs3OOCkgRv cHvIrEFT0JlN4 PRB1uUMbxN8rrOxufweyk G9wOyc+HRn9k7qbyFCtGQ 8taIM5QR12XD19lPXeq4S 9sRW5I9EyIOWm oqqepxgdfDK6KERsEKFkt N34Hd9wuXviHt0iIXRcTO Y8XWTvwCQxV1QclG7tTkI cMETvYPCmA0Ct tVArVXwmH462YZncCzT6X HIuppHwH6ZtNFJvyVfrSl D8w0V2Tg7UGE21QL39YH8 9cKMeo4M5kUT8 G8LbJPLojcubmgwujGR4U NHkHGLxwZ34Rp6obVtfRx 6uJWOoRTW0ZAMogCRuI2D rvN4mDtQtMDGt WBNyA3WmeCXqESjcF006X PazLgF3UZXnfyFoP2DrJY UimGdnWaU7i0I5Kc2NSi7 7WR23GF28qRYx n6I3lDS3B4OpMPHglydec bfywAD1YODnCDPkaG34Tw 3jnVifDg0lNNKvNDV5EIG jlIVuG8TvgQ0i VkXeYPGnDPOeB6QltZSkT YodO305VYseAjC0DGDrfd PpD0OgZIZuiSunYrB7j0C 9Zt2QZHshgof3 J6VpIsherEW+RU18HQVqC X72nRSymSEpp4nqnEz3Uz BmSLRuHYS7iGrtNEkvy8A tQKMiC82agNSy c2U (more content not included)... Normal [facility] Miscellaneous Testing LCon 0 04-19-2022 Misc. Test Result LC COMMENT Invalid Interpretation Code [facility] Comment on above: Result Comment: Test Ordered: 762011 Mannose Binding Lectin (MBL) Mannose Binding Lectin (MBL) 140 ng/mL Low: 0 - 50 Intermediate: 51 - 500 Normal: >500 This test was developed and its performance characteristics determined by [facility]. It has not been cleared or approved by the Food and Drug Administration. Performed At: [address] [id number] Merline Jarvis PhD Ph:[phone] Performed At: [facility] [id number] Ruben Elias MD Ph:[phone] Performed By: #### 1 [id number], [id number] #### [facility] (DEFAULT) [address] [place] [address] Provider Orderson 04-18-2022 Provider Orders [id number] Normal [facility] Miscellaneous Testing LCon 0 04-17-2022 Test Code LC 798936 Invalid Interpretation Code [facility] Comment on above: Performed By: #### 1 [id number] #### [facility] (DEFAULT) [address] [place] [address] Test Name LC ALTERNATE PATH Invalid Interpretation Code [facility] Comment on above: Performed By: #### 1 [id number] #### [facility] (DEFAULT) [address] [place] [address] Test Code LC 587833 Invalid Interpretation Code [facility] Comment on above: Performed By: #### 1 [id number] #### [facility] (DEFAULT) [address] [place] [address] Test Name LC MBL Invalid Interpretation Code [facility] Comment on above: Performed By: #### 1 [id number] #### [facility] (DEFAULT) [address] [place] [address] Q - CULTURE,AEROBICon 2021 Bacteria identified Cx Nom (Unsp spec) SEE NOTE Normal [facility] [employer] [facility] Comment on above: Order Comment: [facility] performed at: [employer], [facility], [address] [facility], [address] [place] [address], [id number], Principal Technologist: Rafa Bergeron MD [facility] Collection Date/Time: [facility] Results Received Date/Time: [facility] Reported Date/Time: Result Comment: CULT URE, AEROBIC BACTERIA Micro Number: [id number] Test Status: Final Specimen Source: Nose Specimen Quality: Adequate Result: Growth of skin katerin (note: Growth does not include S. aureus, beta-hemolytic Streptococci or P. aeruginosa). Performed By: #### 6 [id number] #### [facility] Default [address] [place] [address] CT Maxillofacial w/o Contras ton 05-07-2020 CT [...] Cruz MD Transcribed by: ANITHA Technologist: KEVON [facility] Coding Summary.on 05-06-2020 Coding Summary. CODING DATE: 05/06/2020 FINAL [facility] DSC STATUS: Home (Routine DC) PAYOR: Medicare APC [...] Griffin CphT Date Saved: 05/06/2020 11:44 am [facility] Consent for Treatmenton Consent for Treatment [id number] .00CD:127 [facility] Physician Orderon 03-21-2020 Physician Order [id number] .00CD:127 [facility] Encounters Encounter Date Encounter Type Care Provider Facility Start: 08-20-2023 End: 08-21-2023 ambulatory KISHA CASTELLANOS Not Available Start: 08-15-2023 End: 08-15-2023 ambulatory KISHA CASTELLANOS Not Available Start: 01-25-2023 End: 01-25-2023 Emergency department patient visit Whitneymart Garces Facility:[facility] Start: 09-22-2022 End: 09-23-2022 ambulatory Nadine Colon Facility:[facility] Start: 09-12-2022 End: 09-12-2022 Emergency department patient visit Valente White PA-C Facility:[facility] Start: 09-12-2022 End: 09-13-2022 ambulatory Valente White PA-C Facility:[facility] Start: 06-15-2022 End: 06-16-2022 ambulatory [facility] Facility:[facility] Start: 04-18-2022 End: 04-18-2022 ambulatory [facility] Facility:[facility] Payers Date Payer Category Payer Private Health Insurance [id number] 2022 Medicare [id number] 2022 Medicare [id number] 2022 Unknown [id number] 1960 Unknown [id number] 2.16.8 [id number] 1960 Unknown [id number] 2.16.8 [id number] 1962 Unknown [id number] 2.16.8 [id number] 1962 Unknown [id number] 2.16.8 40.1.642651.3.579.2. 1962 Unknown [id number] 2.16.84 [id number] 1962 Unknown [id number] 2.16.84 [id number] 1962 Unknown [id number] 2.16.84 [id number] 1962 Unknown [id number] 2.16.84 [id number] Clinical Note 01-25-2023 Note Date & Type [...] and dyes. Medicines ? Take or apply gfae-kun-xagurgj and prescription medicines only as told by [...] and water are not available, use hand final expense agent. General instructions ? Avoid the things that [...] provider. Document Revised: 05/07/2022 Document Reviewed: 05/07/2022 [employer] Patient Education ? 2022 [email or web address]. Pulmonary Medicine Asthma, Adult Asthma is a [...] asthma, but cer (more content not included)... [facility] Clinical Note 09-12-2022 Note Date & [...] you quit smoking. General instructions ? Take idrd-yrk-bbqqsch and prescription medicines only as told by [...] cannot use soap and water, use hand final expense agent. ? Avoid contact with people who have [...] goes away within 2 weeks. ? Take arbf-fek-xscjvdv and prescription medicines only as told by [...] provider. Document Revised: 06/21/2021 Document Reviewed: 02/12/2020 [employer] Patient Education ? 2021 [email or web address] Summary Purpose Family History No Family History Records FoundNo Family History Records FoundNo Family History Records FoundNo Family History Records Found Advance Directives No Advanced Directives Records FoundNo Advanced Directives Records FoundNo Advanced Directives Records FoundNo Advanced Directives Records Found Additional Source Comments INFORMATION SOURCE (unrecogn ized section and content) DATE CREATED AUTHOR 05/07/2020 Jasso [employer] [facility] DATE CREATED AUTHOR AUTHOR'S ORGANIZ ATION 09/08/2021 [facility] Specialist DATE CREATED AUTHOR AUTHOR'S ORGANIZ ATION 01/31/2023 [facility] DATE CREATED AUTHOR AUTHOR'S ORGANIZ ATION 08/25/2023 [facility] dical Specialists [facility] RECORDS PERTAINING TO PATIENTS WHO ARE [...] BE BASED ON THE PRIMARY CLINICAL RECORDS. [employer] provides no warranty or guarantee of the accuracy or completeness of information in this document.
[2023-11-12 10:12] LABS: Basophils Absolute Auto 0.1 10^3/uL (0.0-0.1); Basophils Percent Auto 0.6 % (0.2-2.0); Eosinophils Absolute Auto 0.5 10^3/uL (0.0-0.7); Eosinophils Percent Auto 4.5 % (0.9-7.0); Hematocrit 39.6 % (36.0-48.0); Hemoglobin 12.7 g/dL (12.0-16.0); Immature Granulocytes Abs Auto 0.03 10^3/uL (0.00-0.03); Immature Granulocytes Pct Auto 0.3 % (0.0-0.5); Lymphocytes Absolute Auto 2.8 10^3/uL (1.2-3.8); Lymphocytes Percent Auto 26.4 % (20.5-60.0); Mean Corpuscular HGB Conc 32.1 g/dL (29.9-35.2); Mean Corpuscular Hemoglobin 27.7 pg (26.7-34.0); Mean Corpuscular Volume 86.5 fL (81.0-99.0); Mean Platelet Volume 10.8 fL (9.5-13.5); Monocytes Absolute Auto 0.7 10^3/uL (0.3-0.8); Monocytes Percent Auto 6.3 % (1.7-12.0); Neutrophils Absolute Auto 6.6 10^3/uL (1.4-6.5); Neutrophils Percent Auto 61.9 % (43.0-75.0); Platelet Count 165 10^3/uL (150-450); Red Blood Count 4.58 10^6/uL (4.20-5.40); White Blood Count 10.7 10^3/uL (4.0-11.0)
== END 2023-11-12 10:01 | disposition home or self-care (01) ==
LOC: LAB 10:00
PROVIDERS: Family Provider Internal Medicine; PCP Internal Medicine; Visit Provider Internal Medicine
DX: J45.50 Severe persistent asthma, uncomplicated (principal)
CPT/HCPCS: 36415; 85025

== ENCOUNTER 2023-11-19 09:44 | Outpatient (OUT) | payer MEDICARE, OTHER, SELFPAY ==
--- NOTE | 2023-11-19 09:56 | XR_ITS ---
The [address] [address] Patient Name: TAMIKA MYRICK MRN: [id number] date: 1960 Sex: F Assigned Patient Location: RAD Current Patient Location: RAD Accession/Order Number: [id number] Exam Date: 11/19/2023 09:50 Report Date: 11/19/2023 10:11 At the request of: VIVIANA SUAREZ Procedure: XR chest 2V PROCEDURE: XR chest 2V DATE: 11/19/2023 8:50 AM CDT COMPARISONS: 05/22/2023 CLINICAL INDICATION: 63 years Female Pulmonary Emphysema Unspecified J43.9 FINDINGS: The cardiomediastinal silhouette and pulmonary vasculature are within normal limits. The lungs are clear. There is no evidence of pleural effusion or pneumothorax. Old right rib fracture, stable. XR/XR chest 2V IMPRESSION: Chest radiograph is within normal limits. Electronically authenticated by: WILSON AZEVEDO Date: 11/19/2023 10:11
--- OUTSIDE RECORDS SUMMARY | 2023-11-19 10:13 | XMS_ITS | CCD ---
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 Name Role Phone JUSTIN ALVAREZ Primary Care [...] (1 source) moxifloxacin; Translations: [moxifloxacin] Drug Allergy [facility] Repository (1 source) moxifloxacin; Translations: [Avelox] Drug Allergy [facility] Repository (1 source) pregabalin; Translations: [Lyrica] Drug Allergy [facility] Repository (1 source) traMADol; Translations: [Ultram] Drug Allergy [facility] Repository (1 source) Tudorza Pressair; Translations: [Tudorza Pressair] Propensity to adverse reactions to drug (disorder) [facility] Repository Results Test Name Value Interpretation Reference Range Facility Coding Summary 01-30-2023 Coding Summary HTMLBase 64 XxqtocszRYb0vMh+PGhlY WQ+JO8ULJKbJ18buGAwqN 0fS5DKBVfFVrgvNMLQRKr NHqErmgAvDH5kiKOrEVCz IC8+LL5zRJKdWscypXIda 0J9mDJ3M19oum8wDRqquA Q8DVPaPiUawitnh4mvzFr 6IDcuNmluOyBt WQQtzQ91RGJ2dS84Bt63j CPnxNHrh4rojCm7XpMwCT QwCOF6nLtzJTrvi1BvQCG iY70woLOmh3V0 ESGolHqrbSJwIhBicRV2a C9mHDkxnyjkt8kpifvwEp q5nl85vTVll5D3mNP3B2B uhuJ1MFUazOIz ZywxkCTGdJ2kjwxzy0kvm pqpMcGsTQUlCGt3SYc6RM WpqEgwBdRpXI86GNS0EEC xmxGoK5DiQJKg aCqhNwG2g6E4Ke7RJ2DFB fguA0DBISEJZAaxaGO+PC 36wd25Z4PtOkvrUcn4YWG eQOK2nIU1oS8p RRLjCAhxc8H3cRD6X9Ptg qOihb8uy8thEYCmZGqkF5 7ntIIvy0X7VJGnpOV9MJB wkOwxHwLrbF02 Oyc+WSIkxSdrl7AzJzoue 3sad0bvaGn6IkhtTNWqzd YefWgzZST8q9DfSh4hRTS njNS1rLH9lF7o JcBuLnL8SMuwS672PcRcu EOcTqbgS25gO5GgdMK+PH ZaLzq4MNTnkTclVH5dM9O hZGRpbmctbGVm qCdnXK2bAKGkkuxuWYTcn R4iIXHtH9f6XlUoLzY0HC etY2IoDPAapsqyEs85pN3 uHtBhTsI6GFoj M2AwjkO9TWOdrIJuCHneF CW7A51ts2N8ESUyPODvEO M2zRG7pO1xfZnnotuyxQN mdDsgdmVydGlj CKnqQZqrW231FXPqiQemH kNvZGluZyBEYXRlOiAgMD YvMjgvMjAyMzwvdGQ+PHR hXBT7eOemSSEo kJWkOFjdDi3tcBcemWaqD O6wDUHuqohbCZIsyA7kKH TzaWZdfVjtDT0sVJFqesm dh677DzGrTER4 UFDuwSWlC2FvsW6nYkDdL FGeSYRoR0AnpZVvZOifM9 87JSkkLlW9BAEtweZmO6B sLWFsaWduOiB0 b0H3Vz1Ud9WvpgnhT1Ixn TPzPuOoLyjzDKm0Y5GlVk wvdHI+BM94JSXoHI78VEw 8IZE3bVgtEUow PJOaE3RsdY3iGkEnLBSoW GRkOyc+PHRhYmxlIHdpZH RoPScxMDAlJyBzdHlsZT0 pTz9jVOYkCQMg sKtxjRQyElKdx3imFBPbT KkcKP7toWzaY8GzpMB6BY Yrv2d3Yd10B32oI7YhnZU +VPPdjZO5tUQ3 eX7aQcKzVqI2MBgoE126L bEuhYUsYatnp7nrl8koqM s2McD5CIKzwbZiyPibFDT 9j7PaHv72C06l IHdpZHRoPSIxNSUiIHZhb Kuffs2sqO2yMf9+PGNvbC E0eBE0mT2bRkQhEyJ4YKp cR847CpBipYYc Nlnod1rvc8erqHw0GzRgF LUdcfCchBoeTJL2k1AwGh 52Z4VvqSmpw2VsItv5qk7 7nMCqu1E8kER9 F0NiOUOlfwrmdDLcvPteP X0pMGBfcvomUBTnwR0iSM XiT9c4JwHhSeI2VEdlI6N ohfJ2CJAsqXCh LCAmlBEGjK3oymhpb9pgg pwjXpDzYXYsYFg6TCp8KU DdwMjmYhMoMGH0HhS9FIK 5vVWrnB3edDbn upzeoG3pLxi+KSB5iBRfn HFLKS8gAajufRN+PHRkIH O0xPbeGIhbAEEjwF9zSIL zR2b4QrOkLyU7 ENwrH2NxfvW7FEClfIGaM AGwvFEGuC6rsthhl0mzol hvUrJmOTXpKFi7KIk2OZC saWduOiBsZWZ0 GhK1JGW0hHMshX7htOkzt pqstR7oGmq+QmlydGggRG C5UGb1S7SeDdb0JEXnuIm qYM1suUJxVBrl Tm7mkWlhzEcqQJ0uECCpc vgqh944IzSxi8ohVCJpfW NkCVebLKX7Z34bu9O2FHK lDTIkFIH2kAA8 qK9spDklxgfmyDRqxSuya dPwiRzlQQldBKdkY617LM OqaHzhRdDzHMt1K9PfKql 7GGDxhUglMB4u jQZvJMjeGz2xaRmzcNjtN Q6hVEUsqwgnn823SuEoq5 boWWHeiBQpTGnpIGT3M70 wf4G4HJIcEQMi UXF2yZW2nP0nmHvvxfmnv GVmdDsgdmVydGljYWwtYW fjW127NJUdxVymJgRzsRc 5P8CtBgl2AAEq lWxoQM8zwHHjNTlhSc4vm YgzdNjbQH4wSURwxsmae3 03GlKqb7aoLPSaeHTgNIv qOXT4G22la6I4 LPEvOMJtISO5nIN2qI1fy GlnbjogbGVmdDsgdmVydG onVXyaVRjfI456XBLqeYn nPlBhdGllbnQg SGvwUJp7U0YgMyeskYL+P F08NBBfFA00aDVxnCWti0 lbuJi0TqZdHRDcAVF2cHu tVSghs8ArNZCm C39soURlj8A9GLMyzGkxb NBjUlFccID3eU8dVAflzg qpp3navukfZncxw2zlmj8 8tX64K48fOEnc ZHRoPSIzMCUiIHZhbGlnb n3bsT7xWj7+KIRjyVQ6kG O4wV5yVJYoObA2KYkuD13 9InRvcCIvPjxj c7fgz0ozqXz4ReO7CGPah aDxpNssDYI2p3SqUl88G6 9sIHdpZHRoPSIyMCUiIHZ vfXxjwd6mkC3w Ii8+VQXwmWO9aRE9hY2bZ iHzJuI9IJjsV230AbGrwH IfSikvP38mJ5QnwVD+PHR hXds9MCUzcRaj VF1usCAbOVnuHs1rZCQ8G eZiJoYiHIqgU8MjRHLsho qauqatgRE3IRYpABLsqK2 1Ow3pnFpuIFJy rMBJzS3bfvbyx5kjiqnvS hVlRNUkIVd3TOn4TOUhfM pyVePtCYX6FnG8BMN1aCA ytM9qoShdnrsy uP2sK9JiTJVmjsllPt42t M5eLdKeLhH5KXgsXbq+Ql JPQURVUywgVEhFUkVTQSB ESUFORTwvdGQ+ BOIaNQL3tQrhEHuqUQYwa X3uNBBiV1x8DwYsMeJ2ZK dcJ5AaBYApfdrjGz80yS6 nOmAgQvS4IKji T1GtsaU0YQEphNPgWDdzI RH8B19rh2X0NYQfGZTwRS G5oMQ0iY9caVvcpmlvlZV mdDsgdmVydGlj NPnjYFuoC472KUYteNkoI hPcZvLlXvN8GyE1C0YbFp g5XVRkzErpAK2ltXNmCIn tMp5juBwhpUfb HO3eGIUccapbKQViyQ7nV UObtWLjcCrpRZ0mWANzhu snl773UrNlORZ2LQDbfEL fG6NcdY4zPnGy TQQkIONbN5FraUAnUCrxR 827EQkfTkT5IFOfucTeU8 AoDQGckMdgTjO0o2K0Xg1 2MCBZZWFyczwv dGQ+CTYyJDN8bWemOEaxL UQbwC9iKIWcB6x5QfZtUk Z3QPbpP2JpFPGfsaokQl2 7nD1cQvIoPaO3 QExqV7ExneQ5NUMoxXCoV LyaVQQ5F45cp0U0VOQaYA PhNXM7dFU2lM6etBenxcv gbGVmdDsgdmVy sSvtOEalYNbcN609VJGhi DsnPkZFTUFMRTwvdGQ+PH KvVDG5cRmhYJyhCKKjdP3 wLDOvS4u6XmPg XzC7SXprB6GpOWPlverkF a95zS3tDfOxLuM0HHhnW7 ZvowR2ZJWizCRyXSwoCYB 0V51gt1P1WEBn OYVbEZN5tRF8jZ0dmNqik jogbGVmdDsgdmVydGljYW pgZQvdP561ZSTrzFsdCvO vTSRlAN2irYmo dGQ+TR80ft84J3RaExllW vk7GUNlEFE7wFY0sG5xYM XdAMntx4Z7mRS9H1XnwvI ntv5dn2xlVCJr XXuaQ70gtZFdm8C5FIEsd BD5GWSjjOobEpOwcE94Vz c+UQLhrUipr8NcBqnsa1f fe7hcnQn1YhTm SJSfniLezAwvKVP5p3KgB n67X06pEAqtVHYlPZNfNW KwQGLczXgjmg6khQ1oJw7 +BBHatCE4hCH4 tZ5xVjYbLdD9GBseC094G kAwgGQmNwctc1ihn8iimQ r9LwKqPBClszZdxYmkNML 7m4GfLf88E2Fk yBhna5AwMdr6mm76pKQtt 0B1cBS0K3GbIXBscoowgU RnoBpyVJ1rGQSnkimeHIL pdO5qCHSwX8p4 OfNnIqP6TMudI3SyjcH0E MJnqRTjMOZuvVBHzF7tqa jzz6ajebveFqNmIYQiXFo 0ARq8QHWvjGbb WmUgBXW2TjD7CFS4oKBil U6fhUwcosvdjM9jQih+UG p1i9ukrOJsFV7jnFH0NS2 4DV34qJXms1P2 pQB9H3YsRUOiinjqidxtk VK7FUArLTYpnO90Ad4ceC lfQd6bZOSlQGV1JSWcoPO hS0EotW6nRhPb KUSbURLvG0CgxCKzGOxwX 829XCjiJuX7XCCqrwBgY3 RkAHTqxFqoZyV0t1J7Mt5 VEY90QX87BX87 lYTmc6A3wDM1L0MaEVXaj wzvzsrzcCJ1LLKxKCQnsL 52Xr7jqZwtJe5nPFUjSSY 5WCDxhPSsD0Bc dT7iDmCsVKOwESIvS3Ziw MTaNZzwO135ACljEdO6EE KzsdSjF7XwKELoiEkuGbN 0y9U7Kj9UQn53 EI68UO78fXYfb7Q7cPX9C 0IzQYOtupjcrasolWP5VQ BcJTIcmD78Oi5zkZbmMn1 kGOOtQWF2MDBl tWDpN2CvhX4wGlFxUUAnA CHvD2NyuWZxITsnR647KB ngEhR8GNVawlJxF0UdUKR giUefFqJ1t0U4 Uo9AQRgprfx2H2TrFfbhf HI+KX25EMXeEZ01jPWuzY Aeq3kalNb3ApQxTJRlECE 0xTeoFHvur3Hf ZXI (more content not included)... Normal [facility] ED Clinical Summaryon 2022 ED Clinical Summary [facility] - Emergency Department [address] [place] [address] ED Clinical Summary PERSON INFORMATION Name: TAMIKA MYRICK Age: 62 Years Sex: FEMALE : 1960 MRN: Acct#: Visit Reason: Itching; Cough; COUGH Arrival: 01/25/2023 18:19:21 Discharge: 01/25/2023 20:20:00 LOS: 000 02:01 Check In: 01/25/2023 18:19:21 Checkout:01/25/2023 20:20:00 Address: [address] [place] [id number] PCP: JUSTIN ALVAREZ PROVIDER INFORMATION Provider Role Assigned Unassigned Whitney Garces PA-C ED PA 01/25/2023 18:23:59 01/25/2023 18:51:49 Heidi Rodriguez ORCHID TRANSPLANTER Nurse 01/25/2023 18:51:14 Whitney Garces PA-C ED [...] Home PATIENT EDUCATION INFORMATION Instructions: Asthma, Adult, Bizr-xm-Zwjs; Contact Dermatitis, Joej-wf-Guhv; Acute Bronchitis, Adult Follow-Up: With: Address: When: JUSTIN ALVAREZ [facility] [address] [place] [address] [address] [place], [place] [id number] Within 3 to 5 days DIAGNOSIS: 1:Bronchitis; 2:Contact dermatitis; 3:Asthma Patient Understands: Yes - Patient/family/caregi olimpia verbalizes understanding of instructions given Comment: Normal [facility] ED Patient Summaryon 023 ED Patient Summary [facility] - Emergency Department [address] [place] [address] PATIENT DISCHARGE INSTRUCTIONS Patient Information Name: TAMIKA MYRICK Age: 62 Years Date of : 1960 Reason For Visit: Itching; Cough; COUGH Arrival Time: 01/25/2023 18:19:21 Primary Care Physician: JUSTIN ALVAREZ Attending Physician: Bladimir Marquez Comment: Visit Diagnosis: Diagnoses This Visit Asthma (J45.909) Bronchitis (J40) Contact dermatitis (L25.9) Cough ([id number]) Itching ([id number]) The Pharmacy at [facility] is open Saturday through Saturday from [...] and/or drug addiction problems; contact the [facility] 25/02 Crisis Hotline -Text 5HMCQ xh [phone]. If you received any narcotics, sedation, or [...] legal documents With: Address: When: JUSTIN ALVAREZ [facility] [address] [place] [address] [address] [place], [place] [id number] Within 3 to 5 days Medication Information: The exam and treatment you received today in the [facility] Emergency Department were for an urgent problem and are not intended as complete care. It is important for you to follow up with a doctor, nurse practitioner, or physician?s hotel administrative assistant for ongoing care. If your symptoms [...] so we can reach you if necessary. [facility] Emergency Department has provided you with a complete list of medications post discharge. Please inform your immigration specialist/provider of your visit and for further instruction on these medications. Any specific questions regarding your chronic medications and dosages should be discussed with your primary care physician(s) and/or pharmacist. New Medications [facility], [address] [place] [phone], [phone] dextromethorphan-prom ethazine (dextromethorphan-pro methazine 15 mg-6.25 mg/5 [...] mg oral capsule) (more content not included)... [facility] Coding Summaryon 09-24-2022 Coding Summary HTMLBase 64 OecoiimqRNf8hRc+PGhlY WQ+PB8OLYSgR58wzYQxxC 9ZW6fSBC7OWLCSDQSPQQ8 QZF8qsJD7RJquM2EonbNl UwnxnWStPQ40RBt3KWN6c TieUMvvpA6hqRQkY9n9Cs OxET76rH25KOhxJKVsZwL 3LjZpbjsgbWFy S0wePiOfjWMfXcb+PHRhY mxlIHdpZHRoPScxMDAlJy QpeEmnRM3nCj3qFTPkKBT vbGxhcHNlOiBj a5opDODyYEwjGS5bdUwdS 8IdjCQ4RIMeb4h2Ge79qV I+MKTvKNJ2pQpfREwic67 8WtSwq2pjBVW7 hKBmFJgcPJN8H54xr0Q7K LIkIBWgWFD5kFB1sB2wbN kvzbdvG9YxbJXvXbB2XRO 9lSAswP8xtGdk qpipmZ8oZjf+H64UPX4LL SIGFX4QXmy6K6SxOylrmI I+MO19HSNwHX01pWXkpCS un4awdKq2RaIf VQTiOUN0hQwnVVkpp4JsJ ZEeJ86lbGNxo1G6FCXfgX ezzMZhTeMlzWF6fP0lZEd vtuxhr3cldayb Saazc7yebs82cA00X18xO RwiIYAiVIR2IAMjZLYmaA yaiw6tyL3uAy4+AZvmm8o wk8irmOu3QbAg CZVnzdPryZbuGRG3y9DtS s64K2MvxWvpw4CmAhd9nz 37uEJmw0X8bGJ2XAaxZPB mkA7jFBlzNaD5 GCWhKtTchK72tNJfRNxnM g6ocJrgdXabJQ0rMZKdua gbVJKieA4bCNAcsDUfaUg vDI3qJFEvldek h263HiOpRXO9PKVleTPhA 8JkkI3jSxScWYHkJAKhE7 EopKVdBJalI404FYunUdI 1OHAxalCvE0Nu IBZmdIzdSfP2v9H3Bq5Is 4YmtwlcGBC4TFdvAFLyFl UnXjYcVmK8Z8NnXge3PZW srGejTL5cJ3Ta MMOctlbcuqlprSU4XODlE AIwiB51yYGiYEvoHq9up2 T6f986CYWsWRZzqE61Es1 udDogMTBwdCBU xT2egzpgr4ffrtwaBsRsB OToQIu0GAe4MQToiKkkCk OoSVS4DrP7FSE5cCNcbL2 jtEbyugybvE9i Oyc+S08cpT1uWNP5ZKJ5t gukZIItskGqBS10KZ63A6 RyPjwvdGFibGU+PGRpdiB hyPpnVF0vYuTz c6qkq7UuOZqkI3RmMZCeL MtnXrd4YNHuECJ1cOZ8zB 3wBIXmXPakz0H0nYI5H9K kqiUwdk8di8vk PNToMCjdQ74xiGYce9M3U KYprBX5EERlhRupXdAagV 93Oyc+FPUlmPhzh9VpFyr tl4inr7chvPa6 VcDbJRBclqYzgSduEUG3s 7KgDx78Z83eKBeiFAHzKM RcJQBkLMPhkAovpz8xuE8 wIi8+PGNvbCB3 gUG5fU2xCNWsAdO7ZAkyU 469KgXqmDClNtxeg8fcx0 kdcMl0PnUfYEZqexEkfXw mJAY4h8AoYu58 Z54jQLjyBDWpGZQvBYFlF UWyfBagfs5wmC4bSl1+PC 1ub6btba54rH25iPE+PHR lNPX0bFhhXBpd WLFvaP2aANmuVsV3MHDfB cBatB61vLRoTAxkUu7fwG pgnRvcWB2mIBTidozas96 2PuKwt7bqBKIi oIJdEOhoDDB7C01or2K5E MCxXHLgCSZ9pEE5uO5dnQ lnbjogbGVmdDsgdmVydGl pANguZMdsS751 IHRvcDsnPlBhdGllbnQgT lKzINy6J1QgTbu0TRRjqK fiVM7btZKjVHpoOm0njIw yqFndRA5hBEGu nervm383ZjPlp7fdWGDai DKnWBluJFF3A99sy3A9OK YkROEgSSR4fHA0jQ6fkPn nbjogbGVmdDsg guVnxUakVUztCCckW865Y HRvcDsnPkJpcnRoIERhdG U1WB11TD73lBOsx9E7cXT 0C2TnYVVdookf xcnvuEA5RVNqGVVxaH44T v5okCfkDt8xWFPfJHK7LK FczWGtF2OgsI0jArBdZVK oGSCnF7HfgWQl KBbjT170WYooAdI8ADWxp qTgE9ChPTDeeDanNqR6z2 B5Gb3QJ0L9VY56DS29zID jw4A8dIT7F9Lg VAUmeafcqmskdNW4WMLkR RLfyZ54Zr9ikVllAc7fTU QnGBI5QVDabQLcU3QriM2 yOiAjMDAwMDAw F6BkrPSxJXfhL088JWimM dM1USUagyCvZ4XgDSLodT oxSeU3p7O1Qa3MXNv2KG8 6QP86dAYsb3Y6 bFY7E6ZpBVYhpczxtebip XP7LJLuMSVtmF17Ct6cwD wzLj9pXQFxSXF3JWCfoZB zA6LsfZ7vCxFm VSThYKVfI7SnpEUdFCflH 181KKmhViM3PYYvanTmA7 WiCKCmyFdjIyK0o2U1Pk8 HGKRjCV72JBP7 aXS9NX71DA59C7AnOdnmh GFibGU+PHRhYmxlIHdpZH RoPScxMDAlJyBzdHlsZT0 dHb2yTSCkJPBh kDmulXRnUuMad2eeXBRiF NnoLR0bjJzlU5PgtQM5OD Nck7o3Lw09A61wW7JgqMN +VIPidYW2jBA7 xR4mPjShJbK8FOdbY305A dEegOPfEstxe9bkq3xnkV u9WoA9AFCtijQqzSvfMKT 3o6BrPm98H76s IHdpZHRoPSIxNSUiIHZhb Nkdtq5ppS4tNu0+PGNvbC O7eNL9hO1aXhWlEwW7IIg oZ366VvTugQHt Xsexw0nmq9vczVn5EkMbY TGegeKnvEvfWHB5n8XkVh 61A9HfeElhm1IzBht3fp7 2gOWoh0Q1aDW3 B6LzEEWzgvuoqNYegIqsE W5xCMIklnnsAMBjgH8kNF UyB4r7ErIdPyE9HOguQ2P klvT4WOVlaOHe TEsuYKJ8L88ra2I1OSVoL DUxNJX8sHO8lY6ptIjxcn ogbGVmdDsgdmVydGljYWw qEGigB649UKXc dOyaECSnwI6rTYCzfBJeh YacKW0kKOLjrbfmPmNVW8 ITBSPqBATEDGWLE4TdKAh QDkU5X1VcMcn8 VMRvbBmmVD2kiCOmJIivM x2srKnbuEcwOE6lEBAagg itVWRufJ1iKOMmjLYkqNj lLW0kMVJqhexv w033EnIhCQR3RQDhcPOfO 1QtoY9eJxOnJJRgGDTvG7 EmzUOfSLhfZ264NDqyClB 1JSWregPlR4Qx SDDqgZudLgB9w6Y3Zb4qD D5aGv3uZZNlZY50DC53dY Nxm9R8nVB5B1EaRIGfohf iwevjzQN0ZTHu MLFuaQ50zEEkLAvoOk0fj 7W3q970JLQxWWKfeL97Zk 3iqOfvCUMlxAGXiK3qjql qb8jlkrloDoSy VMOsNAv4RZp4GRSkaVdcL lJqFIQ7CdS8BLU2dGEcxX 1emCxuojssmT3pFeb+NjA vBDBpksB1Z4Ko Psh0UBWqbPwnAO3gkRDrC MryFn1poRqzhHzrWB2aMJ JeubdvXIWrkD6bVBScwOJ drFmnOF3rFJCb dvdfk181GjXvAKU4QDAqm LSuD2EzjM6aCpIvFEPqSZ HbW1IptYEzFBqkB455KEy rMxF6NMGjwyPq I7TzVJOhgMrpOdM7w2N3E i7XGI5PROI4N5LbAfn3AN CwzVojIM2dmOBxDYwwJe3 utNrdfEwzZL9o GREznpdxIQWcgE3fYCNkv BJnfTbuAI4xZUAnahuru1 36UmIwMKZ4VESfiWCkZ9R joX8lUyRsQXMw POHvT6JgsKFzDJgtS775L PsxLsK4PWMfrlTnL9OlGV HmsOhrTmY3v5L9Oi7IXSp vdGQ+TZ27ck85 Q5PlDjopRpd6WRJwFDB0g IA3jG0qQZKkFBshn9C7eO L7P1TwcqKkjz5lu0dgWZW vHAvvM86sdNId c1G7UQPpcSY6DQGcrWxjS lHpjO99Oos+PGNvbGdyb3 XjHotdm6vzf3mjzCf2TfW wJSIgdmFsaWdu QTR8s9XxMz45B23eHYcvK HRoPSIzMCUiIHZhbGlnbj 3wcU0pKh6+EFUwtCQ5mSB 3qR5nRaBdDxD5 BWgdX177HnFsuMCnFsjlv 8ees0iaxZa5VkNgJKFrbx WzwDgvVHV3e7HtRd08A4K vzZlbp1BlUwv4 hv02gLHff4H9wZC7U0HiD CXupezzfGAoeAhoRV6dVA DibpeoLOGyhA8cZFMxT1h 3OvTaDtI4RVri O4VmycV3AAQymBAoKXSab OVMpA7ybtpov5pxymenMc JmDZLzUCj5MGv5UMUcgIq uTqWbZJB8CtP3 CDB9vYSknC7rmHijvbadd G9wOyc+UFq8c3cyfSArDJ 6elOQ4NT99VY11tSQwp2H 6gMR2V4AbFHLa lcvzfuyeqAH1IBCcEKClr I32Sw1ltSjaEl2bHYHiGS Y0CFNneJVbM0JdxD3wTaW lWIIfYDRvC1Bg fMFnHZhsV322AEgqOrB2P MIvdaWpN0LnWCEubQhgEy D3a0J2Eo2KQK45AE60KR1 2uGXze9M9gES6 A3YnACBsttenetscjVX4J YSqSWVkoJ44Cj2awYyaPu 0tCZNtDMR0XXXjxSQaB9B yyG8aFfUsJCZe MFBdB4HmzQQdVXxsK548I IoeCsN6UHQyjgMsE0DpEW JlsNmlLnD5z9Y1Mp3NVf8 5YC33TN24hTHz q8T2wCS9I7GrNWHihufjn pchvAO1OXBsABAqiT11Wi 2ffCpvGp4jRVSrOWZ5AGS wiTRtZ4GkdT8z RsZzQBIuCQUlW9CcpRGeI ArxL573GXdrGhQ5VZRvxz KrJ1MpWVUktDrpBlG9v0J 9Tr3CPZuylrj6 D1WhGkcopNN+UV57WTIiD M13zIBmjDSxm3dieFu8Vo QeQOSzIOY5rArkNMmac7G oVKStH41diUGu c2U (more content not included)... [facility] Provider Orderson 09-24-2022 Provider Orders [id number]#1. 00OTGTIFF [facility] Provider Orders [id number]#1. 00OTGTIFF [facility] XR Chest 2 Viewson 3 XR [...] Rohit Major MD 09/22/22 3:31 pm Technologist: [facility] Coding Summaryon 09-18-2022 Coding Summary HTMLBase 64 VwfrezajBEv6xFs+PGhlY WQ+MV6LDEWxW78shBJupS 4GQ6jAXM6DFHECYXEUOA2 ROY9xyNM1LOcbQ5FszdOn RguclEVqAI41LHp3UDT4y WkwMTfhwI7evFLtC8w4Rj EqCV66dR47XSftJEWaSbT 3LjZpbjsgbWFy A7wyKuNozBYvJzn+PHRhY mxlIHdpZHRoPScxMDAlJy XinMucDP1yJl9nAQKmHJA vbGxhcHNlOiBj t0tpHVXlQLjaSB1qlPbjS 1LajOH9UYQdz0l2Ai22cJ I+FAZuCXL6xLshEVdxa06 8NnZdn0wuSQG1 zKOsWNbqVAX1Y13gn6P8C TJqOOIkKVF6mTK0vL1rbS mwxvalD4AbmEEmTgC6FQS 8wHPirK1mgDnw gaxqlU9oZyv+V21BOU8LZ VDEOY6FXlh4R8SdThelvD I+BH43PNBpCH59aRIfpNB tf8tvjNe6BoAq UDZzZUN5cRuoHIpki5WmY JDdH09pyNXsd4Q8LCMdmZ tbwGBpFcPfzSI4mN3wBEb rhpple8ibisnk Nddce1bdrq44cA09B95tQ JlkIVXmLPP2KQCtVUZjcD mcsl1fzV3lKm8+TSxmm7c xv8bfeTp2WaIs YTSrheXkhFvbFTX3o2UcV w79O2RyqZtnc4PzVwp6fm 73iTIta0D2nFW2UXmiYYN tvI2aKJmzJsV2 GTWhBwFapS54qOJfLVwjN m6maKrvqRnxEK5iKIKruj koCDMvjM3gKJBagKZwrOl jTC6eEXUawwys n794AoDoKFW4FYPueJEdF 2UljM9dOgOiCLRfRAJtH6 QnjTTuNKxrJ003URhsYbU 1UGQfbjVdE4Xm KGOxjHrnAgV1a0H1Ma9Eu 2VbwnouXUF3UValFWHmGl L6TvThUgG2K0VyCjn9VJH nyDciDC1wZ9Xe SQBlytkwgysgtHQ4YVYxK PDvoH22dRSyNCmaQi1tz5 F6a722WVDzHQVimJ99Oz5 udDogMTBwdCBU xU3qspyqv5gwfhrmAdAlM SYqZBa4BTe7IVItzOroZv KsMJP5MxC4YGE4kCMkmT6 kpTcjzujzmD2h Oyc+O75rrD0qODA9WSQ4e fblTXEpdkXdSM26RC90E7 RyPjwvdGFibGU+PGRpdiB mrMviAB2jQcHe c6tov2EaPHvoK5BzKTKqU LtjZdt2MYZcGVG2sHZ6wS 9wXGJgZZbiv0P1oTS2X3C lifYsyi7hs6zt YEKeVQpfB50zxURqw4A8M OHcpQB8ZVUjoXhdHkRzaI 93Oyc+NIPoqUalz2RhTcr il8xje0xqeAy4 NjQpSAXtomFjkKdeFCP2j 4UwMw24I54jVOyoGZHrUD UeMSHzIYXzyRvqei1mcC2 wIi8+PGNvbCB3 wAW3lV2iQZMxMqX3EOfzQ 872OiFxcDYiAiapi3gum9 esmEu2WvKiTEVyygIzkCo lEIG5d9EhTc75 D88sOWbrUYXeQLAzBFLbD XUmoUbsxo6vaT1nFb6+PC 7ib6osxt45wG90pUT+PHR fQXO4jHeiQPad XOQidO8tROfaKsW9NYKyR qJdnL80dDOgQIkzIj7qzX cchNhdWM2mMEKbcknps69 9PtGph6ocYQYp oCWfDEhkHNU1M73xy5Q6B VMdIHHyVXT5mGV7kZ9ieI lnbjogbGVmdDsgdmVydGl vCIxkYJnlJ986 IHRvcDsnPlBhdGllbnQgT nKqQUz1W1HaTak4JSFztK vvTS9xmJDoSDwnMk3wjVy jaRcfJW5gKLIh qktms029FyVva4bgUMBpd BFgFWgtIOX1P65nw1P9BJ NeLBJhPLD2kQO7pL4nfZh nbjogbGVmdDsg caFepIxxIVfmLFxxV508M HRvcDsnPkJpcnRoIERhdG A1AX83KL48iEEjm4J1gZT 7Y0NhQPCocwkq ljhdiEH9XXLfKFFpqZ48Q u1fmKieYu2hIJEkRSO0MG HvrIKuK3DkvN4tLgCtQDW yAZTdV4AkdFOi BYvuX678UFojZbP8TJTcb qBiX8TdEYLiiQmyGgF0c9 M5Ah3YO8J5MV94TO37yRN fu3K7wIA4X6Gv KADmmawvtomuiFW6JJXjX JNxkX52Ck2ibBoqDc0vRG VzYIV3ZYTvqDEuQ6PotC9 yOiAjMDAwMDAw T8SppZDrDGzoO125VKusF vE3OEMgasJkT8IpVSIagU ovQuK1u3V1Oz7ZIJt8UE5 2FD89gGRki1O7 bLN6P5PnTSJdwaburpsyf OR0EGQtDVAdxN65Dh5dgY ryWi2eRFTcDXI3APLgwSW yG8XjaR7lJaIz AFAuISFbY3ImbNBqLCkuO 127QVbqCnR4QRKeotNcA8 UrCHTrfUuvOeH3b0V1Dt1 TCNGxXQ68CRF4 iGH8EQ02OG38K0AzWgqak GFibGU+PHRhYmxlIHdpZH RoPScxMDAlJyBzdHlsZT0 fRr5rUOAwMVIf uYgkpUNqRwFxb8ksXMLoJ SqpFN9qrSuvU4XbcDB8MV Nhh2a6Sy69F00xC4IynHL +WPBlqYT7tPM7 kE0vBcMpUfV5MOjeI409Q dSrfQVhWsjgp3npk2gaxU j8YbY6MQYldzXqxGlhDVP 4r9WjYa34O04p IHdpZHRoPSIxNSUiIHZhb Xnkqw7itA6aTz7+PGNvbC Z6hDV9nD4fHbPhZnH5APj eD424YwDlrOUw Cbtyn8avp8xcsLg5KmNoD VVnrmZvmNnuQRS1a1BoXs 53I0SoqLxap3NyKhd4zi4 2dKVua4D4aPF8 O0SuIESvdkcntHWlzBnjW D6oSFDewruxOGRocM3cYC LpQ5m2YfBfIyE8OHasT8X hjvA2AYSjlPKk VSmqEVP4B59fv1Q0YGVlL FCpZSR6pHB9lW0gjUuwnx ogbGVmdDsgdmVydGljYWw jEWdyB723TLPm lRgyPWByfY3uFGSywXNra RxlTP1qLWYqrbwbWnTJW0 WCIHZnZBNHVYZHM0MlDIt EAcC3I6RbStd5 JFGvjNbeSO7vmHPzNIbwU v6cfYtmpRqnSL7dCANznu kxAYCapN3gCABjxGZwvCz nER0qNFEjwdee n257DuWiDDU1FVPbmQBrI 1WbeQ4nLbOzFGLwOWXjY8 OrwLBnJRgeK836WOmcDwI 4WZOiesFyC1Ex NXLbiAnhXtN2l6J8Em2mD Y8fYk2bNZErMB43ZN07uG Ikf5G8mPE8Y6AyRYIsqea pchbphXJ2XBOc PLEttF22eNZxRModEf6sy 3Q6v650LMYcBWRdcF71Ps 5lmMkoELJsjMXVwT6aoub xm8rlurkkIaVx CMAnRIn9MWz9ATTflWmrK jHkCDY4VvG2FPI4qPUfwL 1qjSktlsldwW5tHma+NjA rIWOmbvU6C6Zc Iyt0MFGpwDkxWQ0cnDMuZ OxuEu3jyBfgfDcrCN3hHO HtdumgUPAajC3pFMFajVQ lkOzaIJ7vVNMp rmtht395KdKcJIA9FOUao QBnZ4TikH3gTuLxRJGsXV BlZ9VzcGBqUIzkD849ZQn lCkC1NMUqzwCn V0BgQKMcbIzhYtS6h7U7K q8XEF6TKNS5L0AjUcz2PJ BpdJuvCY7ogPVzAJfvHh0 ewDxsaUvbJH3t AURxnkvcGJGfwA9xAWUob TKxwUpwPZ8hWCOelldeh6 97DlIdWYU1NGUrnMRuT5J vxB7wUoNrZBPq JYNmL0RxsBOnSCnmD809Z AlbZeK9XMIxfrZfF4WrEX SoeTasFwV7m2V5Sv5GOYb vdGQ+BW50hk46 Q9ZyFuihAvz6OMLkOWX5e MU8vS2eGUFvWPuym9N0yX F8G8XcjiCjmg1lg8wiUYY iITxzK37nkLEz z9W1ORRvqFF5SFZqrQxqE sOsfT88Qzz+PGNvbGdyb3 HbXiiim5pmr1zpnJq3ClL wJSIgdmFsaWdu RQA9b7EtFk01I78cHBgrU HRoPSIzMCUiIHZhbGlnbj 4hrL3mGz3+KLBxgBB4aWN 9vB7qEwXuOtG3 WRprA771RbCirQPzRuhom 1oku6vgfNa8RrBnZEBlwj UjdNcpSJN1c8KzSg54I7I dbDsvk9HoHbz9 dm75eVUlf8V6kLR9H1YzH WZeuerthQAvnWsgLO3mMI DcnwdpRSHzaE9dKECnA6g 4DiCuVrO3VKxn U2DgbeT9MVWicDVtJLIjz KPAoC4wouzdt5ymnefxHx NsXFUqKRq5UEj4BEYpqAr fWoNrGRI0ErF0 RHA3yPIbvV4xwZmccytoc G9wOyc+VDy8r8smdRPsQC 3kuUU5KL16YM35yVQbs5Z 5oQA7A3MkDIBv gxvnabykcKF8ECNmFBJaf B19Hm6wdIgyNv7rCTJsHC P4HNCqjPJlK4VlmB7yLuA dLZEyIFDyY6Yy gZUeKIvbW162GQliBtT6N SZoqkVzL7GoWEEynInoQf Z9s3Q2Bm2ZTV80IE01KP2 9tRBcu4E4bBQ8 I4QiTAOjzzlwznynqCL9S GEfTJAtmU95Ib5kpWxjCf 0gHXUyOYL0RUMqjFTbR9V mfU2gJxNuEYKl GIEtT6YyeJCsLSaeI269W McbYoA0XJCrpsDdH7YsXM HixItfEdB9n2R7Gg3DWd3 3XF73EB32zRLm b1R9wCU4N6WuNGJnibktc ihvlBQ4BFPfOPCpvU82Aq 4iiAkeGc8nPLMaBZN9MAF adRWzJ0PcgS5i HxWbQQHzXOTlB0BtjBDmG VwxA082BWqqSdC4PMUctx RwO1MbLODbyDrhKmC2t8W 8Ry8SXGlguvo1 T8OdHifpyYC+TM13NJNkY P27rWHhaHIbi8hgmOn5Qk FxZLToIVJ6nPsuWStsp6G mXMYzF83mbJMx c2U (more content not included)... [facility] Coding Summary HTMLBase 64 KceoeajjCAb6nGu+PGhlY WQ+BT8IIQYlR36dtFTxoC 2EC5jPPY4FVSPARTGGVY5 EGW8ctLU8ZLaqL8CjznMr XicylRRgBL61VRo3JSY8r CwsXTemoU4nmBXdQ1o1Gq WzBV43jD05WYitNTKxBbY 3LjZpbjsgbWFy G2khEdAojTHbIgy+PHRhY mxlIHdpZHRoPScxMDAlJy ActWfpHJ2mOr8gVTQxPZI vbGxhcHNlOiBj y5sbRQHcJCeoIZ6svLtdW 6NtyDX6SEMiy8h4Ip66wB I+MTZbTOL6fYssDXhcf71 8YnUdq4apDZJ6 yOAgRQjoBLR7H72ht0I8U NZcVEDeITE2kJN6cX3jdV dnoxayI8IclHDxUvS4CMX 0vHDamZ0voBne hvucjC3zAgd+L21WEQ1YS ZULUT8HFcp7Y6YtFjdprK I+YL42UPFbPH57xNFclWW bj6mreAf4OfPe PZVjSVD8sGisNLweb8SvQ NDgQ44agMHih8R3RDCyuW ohqPPjOjBgxMK3jX6gUEr sunfrm7tguvxf Baeic2bguj62zR49H61mB XdiAALhPNT7CKJaJVKzdA zkrt8ouM4jBg6+ZTiwr5l rq8rclSi8CfLg NVVpadVqfSiyYSX1m4VrL p40Y0VrmBliy3BdDid6gc 66kFXyc6V9jHP7FEbzNSE rzN2fNFceUlS2 YEFqWiGlgR03qXSlBTbtK s5wpWwsxPhkMH4mIMNnue rwNPUpiI6lKTDivTFbpRz kTM3iLAZvulop t131KhIxTBU4BLGqiLSiL 9AjzI2sOpOkOCCuJPXnW1 DsiPZsYLhrO938YKwzLsN 9VTVkusGmR9Pr XGAyvNjfNeJ5a2Q6Kx5Mv 9DkujmlHJK0IQfjOIAyKg I7FaMoIbY6B1YxVsj4LZE rnMveMS9rG3Rp MONndgxmbdyfbSZ0JQXaB VWhnO09bDLqBFkgOb0xn7 F4r187TWHlNKMcmH66Gz2 udDogMTBwdCBU pQ5vxxpgp0tjmliqCzTeN HWpODv3KXh9IUFyoCttDq FsZOP3DdH2XIS9nNAsqG4 utCkuqlkppF0o Oyc+W77neQ7uIXK8LKV8g pyzFAUpbeUrNE93KI67Y1 RyPjwvdGFibGU+PGRpdiB jkPsmLY3kBdEd v5pwo0GdVOoyK9HeOEPoX AdjMmm5WABkFBK1eYC1bE 1wPBQtKGtym8A2zWJ6G9Z jvmUvdw5cn5fh IRKeOHocW33ziLGzv5D0Z XYzeNY5DOVgaHluGsByzA 93Oyc+SMVehAiuj2GhSiv ov2osi3mswIm3 FjSpKQEyagQwvWcmBHR0g 0KyZc70W92uMXypQCWfTX DaYPZjBDHqjOlaau3xgA5 wIi8+PGNvbCB3 wXI8oP1vYDOwIwN5AIcfO 540MmXjcGNfHyvpe6imd2 tlsUi8RqRkOBDqibGpfUn vGXD4w0UtSh68 X09fOKgjOMUzHSAlSWIqF EQqaUdxpb2lbM2vBx8+PC 4ee9kpkg72tP93nWF+PHR pUNZ3gPcgTEea FSJhdI9lRYrbPqG8FRMmM qJjaV36sQVoRLmaUr7tkW yktSsjJA9mIOXbsnilg10 0KvOrd1osWYDt lJUhTBwaSFW1A88tc5E4S TIzUFBjEQU2aKX1rG2uuO lnbjogbGVmdDsgdmVydGl rLBgoZPepU638 IHRvcDsnPlBhdGllbnQgT qHmGMz2Y9YsVmu6TBTsyM iwST0wuNLwLEtuHz2ngLm vzInnQJ2qJOAj xgesh780QcZwn0yuIGHvc BDfFFbaYSP2X25sc4S7LJ NnELRbWNG8zYS3lQ2doNp nbjogbGVmdDsg ebNniBxkVLjsPUfdK093Q HRvcDsnPkJpcnRoIERhdG B3KX81JH55aHGxg7K2jWK 4X9WcCLAndaig ozrxbCR9AHVrHLWelB24M n2qcWacAc5uGBIuXYU1CJ KieYBmK2NcjM0hIsMiSZI jAMXoB3EyuOIb DRpvP201JNlhVnR7GYOiz wRsE7KoLOUcdZfnUbC0a0 N8Oy4QJ7Z0NG35LB54mSK sx4Y8mQZ5X0Yx SKViphczvhkgqCO4UHDlF YDrcK35Hu1cuNkrNm4eSR QiKYJ2EWSxsNIoW1GmvP6 yOiAjMDAwMDAw N5YwwWDiGJkiP012ANenK vB5QSGuhsFrL8OlMDQppG uvOpK3n7O3Lz1SESi1CZ2 4DA72qNYge6B5 mXP5L1MjQCBdzdjavlvik CX7IKSyMLGpvJ19Du6cyO dbGf0lVBMeXEV6YSRenCC tY4NoqD2vXoCt KDPmKOBiA5LvxXBkNHfkG 416HQlsUdA2NANqnbFrD5 JbGRJaxDczJeS7m0M9Yg7 OMAZxQQ16PQQ1 iWV8XC07RM78L0ImLbfhj GFibGU+PHRhYmxlIHdpZH RoPScxMDAlJyBzdHlsZT0 bMs6xJGQxHXZc zZalfKCtYfOkk2obGDPjF PffWP9gmBahH0BuxUU4MJ Cxj9j5Vc37E94hF8KfnMX +YLQnaKQ5xHS6 lL8uAiEsHnF4KGznH701Q jTujNRlDkfck5gve4dzxP a5YdG8RBEdopTziCblILB 2e0CgYo09B90z IHdpZHRoPSIxNSUiIHZhb Uacxg4ctO8eQj9+PGNvbC O5jFG8dT7hZaHuTyP9HYc sQ464ZsObtBLc Vakmq6low4pesLw5QdZzN SRlfdOenTciZPT7m3LnVg 16B9UcuMmjb6VpSyg1os1 7hXGte5A4vZM5 X5DzDMHtejyulAAnyNiiM Q6mHQHyzibfBUPdqF9cYN OsA8o8DmByGwV4VAhkU0W bgbP0FPIkfHDi TTpuINA6L76xr8T8GQNqT UHuIIH4iEZ7fU9ouRntob ogbGVmdDsgdmVydGljYWw jGBesU774TTUn fWviXUAlcH3tEBNajDPut IaaFN4yJNLbooxyPfCRI3 HYSMZjNBMIQJALO8XpTZc MQcI5H3XyRzv7 HLCetHxjXO0jtYUvVSadU q5hePfheAchBX5uHSPqtk rbTDBijK8pNNZmlIKcsFq bDD5nIWLcynyz p910YaQyAZT0STNlsFWaH 1MdmX3jKvSkGYBwUSCwE2 MraOVbQJldX935ENhrGoL 1RZIbauGsB9Hj AGXgyZajHbS2r9P5Ge2rY E0yNn4wVFVoZN36DY02eR Psy7F1kIS9M0HaYALkknn gdqskzIN9EBJw KADeyC40gDBlTOncZa5qd 3E2u430IXDgIMXrcE66Dp 3qgCueFIFlgFHKzP1ptcn dw9rmjbrjXoKw VSGvTAf0TBy7RREtoRkoN qJcRPL4YpH1ZOF5cTRguY 3pzVsjftldpL0jNeg+NjA fLMYsqgO3Y6Bp Yih9CPJmxOyfFZ2upFIbE DrgQe3xgClkhBzsWO7xYK MxyhliOWSggZ2tNLIfiLO xlJygIH3eIVQx iqaug994YbUiJJM4DYXnm NDsH6IkjN2mFxBtIDMpMG OqN0JdxPDiDEnxT732KWb jEwC7PEKlhbFx U2AdWOIxiYpdSkI7k0Y7F s3JHF0VPNA4I8JaUfi1QZ UjnUslIQ9dqMPnJVatSe5 rqIobjAbzER7k GODfjzisHFXymG3qXMAoe OBxvHsmYQ6tOOHmcpvpq9 52LuOsGEZ1QPLtpOTtP7D icK1gEoRwJUSe ZQIzN9UucQMaKKikO591A KqcIuR4UBWmziAmU1SyJT WdqQfhCkH2q2L7Lf4RyDV rT0CfT8t6H2Jn PjwvdHI+OR47TTFtQA39r UUsnHPwp9ezqXr8YiKwQR SuNHE1zBlwBZakg6DjFOM rD25vjBZvk9S3 YPUtoBnnjYSdVfYfiWX3j G2uNYuxshned9vuaeekQs gxl7maiu19xE48T35uXOc pZHRoPSIzMCUi ZDByaHugep2biA0wRx6+P JDokUQ1vCD8bR0zBbGmSw N3EHreB227MlEvaHWaWzl vi0tro7avlCk9 UvGkCLOxewNwlNqyCLX5x 1OmFx14X53dWGoeAQGvUL RbDNHkNSPouAvtao5ysJ8 wIi8+XH4gu5hg ta99cM63yHR+QKAtTUD4z XtoFEzeMWAbmM5jROuxRb U4VUPzQxLzeJ69tYIcDRy kRq9jkUqfdObj YR7oHBOotpiyw384XsIbn 2pdKRPnuNLyQQjwFTC5O8 4ya6D4SUZbBQKnCQY7oOA 8aD7crDicetnc bGVmdDsgdmVydGljYWwtY ZniM547MQDtcWdaJpDooE TgQ3arvuDJNP1xApbafWN +HYJwADT0bBgh ELioHMPkeX6lDAFxO0c3T uCaZzF6MObrA4HivsU9VA JkuAYxCQLsgNUXuH1ddhw np2fhfhqiPoDj NGIoMFv2ACy4ZMZsqHodB uSjXMJ0HnE5HER2nASshY 5iqXbqcnzpmK0wJga+Rkl OOjwvdGQ+PHRk DHT2eAgxUVrdVYJihC0dP DWnR2m4YkXmJuX9PZieR6 KluaL0SBEhiLJtWPKjyJK IoY3curzti4pk bgouNtIyFRSmOAh2ZPy2B XNjrNhoLtMyQXO9DmX1LN B0aJWyvX4wjLkvgeljjA9 wOyc+TVJOOjwv dGQ+XGOxQXF5mZqjFTacB RFliG4yJNNtA2w7ZoTdMd V2YZigX6AawaG4RQZeoSW qSDJxqQSVtT9o bclhh8ikkttsJvUoKSKbB Pf6SVm4LFMhvVziFmQvNC Y3IeH9EYZ5nCNlyR8qmXa yrwwbjB6yKts+ VBV0MNA8LB32ZC30O1YyI jwvdGFibGU+PHRhYmxlIH dpZHRoPScxMDAlJyBzdHl bZM4fUe5zSEPv LWN (more content not included)... [facility] Coding Summary HTMLBase 64 TbdygkjwMTp0hQa+PGhlY WQ+EL4DIDVsF59wfVIzbO 1WS9eWHZ9PSANWVOTDJL3 WBY3rfQH0DLxuV9QsbhMm KlqpqBIoXI45PCj5AUT4i YutBZnhgN7ljCBsP7l0Ho NqJL54hT28HRzpYVOhXfX 3LjZpbjsgbWFy I3ocDmLxbPReXio+PHRhY mxlIHdpZHRoPScxMDAlJy NpsNyvUZ2uGo5mAUWxQLK vbGxhcHNlOiBj v0siZTVgLVchTE4goEumP 8FizMN2GITna8b1Gf00xD I+WZKaWDO0xDpfRMjzv13 9IwWos3jfMZI1 iRNxBVqkNRQ3N07bp6M9X AKwEYZkHPA8pSA7zP7vtN bpomurT7TbeLWbUyW8VBA 3cKSjoL5vgByp lqrpsH3bPbh+J79XTN8OA RRJUP5HBsa1D8CtEtwgbH I+RB74ZXNyYX23lUTpaXR qb0mayRy2YzWa TLKvANM8jQjtKQoxx0CgQ SGjX15zyYXai3X4SJJdvA vscLKiApXkwLT3vY1kTWf msueyx8afqhez Vkwbm9bucr03iY98U74eS NuxSMIiNGW6QUAtBNOniK vgka7gwB4iKs8+QJxav8e vx8podPs6SjXk AQEewkEdnKlrIXH7g7GqP k15L5KjlAqgq2EaLed8tv 67wPElx7I3lSN4VYujRHL moW8dZXnhVtR1 JVBrUuFyiJ83qEZiKNgxM w5scJrmdUnaSP7rYDZngn lxCSTjlU7xOFTogTNlvVr iCI9hVLKtgaqp x755KbSnJYI2GKLlmZDeZ 8ObfS3uFzXbULZdEXZyA1 XjsXTtQRhvS776CZzsOaR 7WZDczfTlH0Eg GJHtjNokMzX7g9T1Hl3Cm 5NthgivUMW4LAfbCDMvMn F5AcJtJoF3Y0JxPuf4BOQ goJwyUQ2sQ0Sg MCCzuorgjddjjPZ8EAYaW UOefD52pYWiIYyjBo3xn0 P5k090XRHwLODxoX35Bk5 udDogMTBwdCBU wO0oqqxts5pogzivQySrW WMpYFg6UPh6KODmrFpeQq MnYET7HgY6WGJ9iIVwpQ7 jnXntvkmreM6z Oyc+O94gpR6eHEU2DPK5u elrLMKmenQtET56QK14I9 RyPjwvdGFibGU+PGRpdiB kzWmbZQ0cUgMi k9vmc7TeXFyfH8UaSSXnZ RonMqy0XOHtUYI9pHG1uZ 3cKMHtTPvwf1I2pZZ8B3A upgWgfz1bm0or ONKzERlwQ97zpUBcj1H8C VUsoDT5QZHroLruPcOhvM 93Oyc+HBVprOrlc1AfBwy zr9llj0aghOu1 PoViXZQiriAlkQkuTZW6s 9OfNg98K95fRTpuEFSdQI GeJVCaIBEeaGborq0drN1 wIi8+PGNvbCB3 tEW3zN8jODTaGpF6BVjyW 953ZyVdfQKpIpuci7pea0 edmVn1ZfRxHNSnlcUkcPa nKJH6f4XdQc04 Z06jVNcqYOMkCCZlMSNnI MAxpQakoz0yfG4cAn8+PC 5ad7dpcz42pZ00xTS+PHR wUBI1jIblMBqu KICkvF9cEHcbLhY5AJKuO lCfoO48uGBeZNspZh8obR cqlMfmXL2nDFXqkuykr72 9AyZde0rgJYYi iLDgLZmqVJR0T45pc7P4S OAfRRIoEIP4yJW3zZ8epJ lnbjogbGVmdDsgdmVydGl hHRljJKdwE824 IHRvcDsnPlBhdGllbnQgT pKvNYb3P8AnBpe7QHZvpD nyZZ9yvNBnDKnwBz4dkIo ugDneJM6iENVc krzny151MoRws0idQZVzg TEjRPgvCTG1Q23nl8A6ZG XyYBCuSLG6kSC9sE4hdOr nbjogbGVmdDsg paKtoQviGWiwHBerJ759G HRvcDsnPkJpcnRoIERhdG P4JT71QN20kZKhw8X0sUR 6A1TzPWOdeowr faybmBW7YECcFYFuqK81R r1vjPxlRz8cJYTdTEN1XT DmmJNmP8UwjJ1tNvEnNXG gHLPqB1VtqWWc GWolM053FVikBgD7QHKgy cFcM4DiDVRxuOvvLaF9m0 X4Ym0UW4J9GK25OY97vXI od3P7hYQ5D3Yy QSYisadgkihsfEM2QFEvP MJhoC82Le6azEenQv2rPN YbXPP9JBAsbLRuI4SejW0 yOiAjMDAwMDAw D2ZaiGVoQAtcX624TObzV cO9UJSudvHiJ9VjRYUrqE klOfE1z7C3Kd6GVNe8OL7 4JR62mFSor0Q9 oEK0T8HdOKYwnkpmbgdkb ZV0QYHrBFNxjU69Il8nkY xpYj7hBGSvUFX0ZABkzOP bC1ByfL2pGwGk LRMrBPCmU7PirNKhZRjfD 522PObrYoX7BJWsidSmF0 XcIVAddPehXjA7w7Z9Bz0 UZHNwGZ85NGD4 qQK8CH47TW03G8NjZxvce GFibGU+PHRhYmxlIHdpZH RoPScxMDAlJyBzdHlsZT0 iSl5lFEZvZIAo fVbedUXbQcZbf3qkBDDjG VyxKD5xqKbnZ1NujUZ6YI Uvg2u2Wf91U08fC5SzzKO +CZEluKL4oXM8 mF0iYaUpSbX6AFwzA287K uJzuPXsSapjd6fsp4xzsX y4RrC9SXYtfmDvrKeeIZE 9s9PzQs96L32d IHdpZHRoPSIxNSUiIHZhb Xggei7fxS9tPf7+PGNvbC Y2eLK8qX1kUsImOwJ0QFj kK069IaJtbVEg Yzbfy5wmw0hyjRu5SjJyG DTepvZzxIfhMSU2g4WiGw 81L7PviCaps3XbZkn3qq6 4sIMan1U1lLS4 N2DfJYIxdjdpuZMkuPcvL E0vSXBcqtvfXHMbdC0jBD ZoE2c7JzEoRiH5ZIfwP8R szhW3FYMlsLXe HFqbIUF9L90dj7W9YCQhF EVhABY8vJP4kE2raMxdzb ogbGVmdDsgdmVydGljYWw iAOjnL020KQXe vLakLJYpnI0hMEWtwTRdg GldBH3pULXrvfyjZuLHI1 SBLZRkYZVNWHWUS8WiBUm HUfP6A5GvUbp8 LAVunBolYI7uhYNuVCweZ m9jpMqtnJqdSD5tBDXdiu jpBGBvdL5aWQWgnJOkkRm iTT8hERQkjdld s599GbYaEVL8CQXjhHJmV 9RxoX2eMrBlPFYgCFNwS1 AbySJuPMxtE370BNcqJlC 5DWHahkLwH2Jk UXXivFboQfJ4d1W0Zv8qV J9gWn8rZQEmWD83EI84gV Yqk7J7cFP0I6BvDCIabuq epkewlKT0GVAm NEGlkJ10wHFdOHtoNs8rn 1Y3l059IRWsYBIchD62Gr 3vfCuiEMSgdSDVtE9nkgt lf1bbxuytWwVp PJShAQd6XMn8BSCuvRihU xFgUTC7ZwX1TCP9yKZnqT 7vjYzyxjuzqX2gBfs+NjA kEQUrkoW2L6Cx Vbo2YAAryJixMF1rbEDmA AklDz3sdFihgLddBK0aIU NskyjkXWSbjK4mAEFozBN hsBmbRC2rLBAz ivsfw120GlTdRME3LTJml ISyW8OnyB1xDyCwGZDtHV JmZ6YuxZRrCMbtA196RQz aTpV6YRQkgpTa P4YfKBLdeWwdOlZ5g6K6S d3HZZ9GLWY4O2OsMqx4CY MheOfvZK1hyIQbRCcmJm6 fmDutjAooBO0m FPGimdbvWSOerS4sTJTxk KQmgNqsXT7lWDNiszhkz7 67YpTdEDT9AAXibLWmF2D kuR3pKxYjNBOf UHEcV1GuhTQwUDroS119Q HzvXvV4WNLemdZqW5DeKJ RewItnXsB1m1Q0Ei8OuQE rY2NfI4u2Y2Wa PjwvdHI+OI40WQKuWV06g FDimNWho1vsaUi0JsZcSZ BvGOQ1fKhiMVlhz3QcYSW bA33mgZHmp6Z4 QLVnaVctiBPzYpCqbMV5r A0hHAmqtccid5qxpjnrDh baq3lnaj47mA69C23uEJf pZHRoPSIzMCUi OFAxgBcrpb0myP0fKy4+P KGmkSU5dHR6gP4vFhUkIo V3KLlyC237PsOlfRBfAxn df2wok4zflFi9 UcAeIBFyslLxtUisOGP0z 8DuLa86W42zGAhgMZMoGD QnELOnPVEilBkbgh9ihI4 wIi8+IK7ni9pb jn11fJ17uBA+RXYcDFE7m LfiISsvJRXxkI0qJXroAc V3YMNtDwMnlM00tNIhWDd sRd6ouXiykTbc YJ7cRYUtyqfap697IpXqp 7ntKKSaeSAlBLavTMR0Q9 5jt9H6VJPpVJMbGSE4wAH 3bA7irOhpoulf bGVmdDsgdmVydGljYWwtY BacM243ZIKtmFxwBtFzeA PwX9gtngRLFO8eUfodbHK +TZYvRPT5jWlu NCanLXFghV2uGQIpW7c1U iJgXlK1HUvsW8AuaeN9TY QylWVgZMTnoRUCiD6bmdx gi9robnovCyUu ENKxHEf7PIn9MYMcdJvjZ fYlIUD1PbQ2UFK8uZJpqT 3ruMnmxjqkpM5gBam+Rkl OOjwvdGQ+PHRk FOX0eByfWTbjVLYjzO3cO WStP1k6BcGbAtY6ZGdhV3 SyakH3ISJxyUEdIBOmyBO BaQ2sgwffs0vn asopHkVxNYQkDVq1THy3N WJdiXrqWqYuFSB4FoK6HA O4bREknX5mcDbmvayseM5 wOyc+TVJOOjwv dGQ+JKFcEFZ7kKwbEYhkX IOucF6zAUXeM8h7VoZqQd Q1WKytX6DufdW6PIVomJG bDAZlaDPIlA2p pbvjf6lrpmqiIuNzJRVnW Kr9XJv0SWWrwOsbVuLzIV O5OoR0VYH2aZPyuP8ufOz rpzatgY0tZaj+ UPL6KCC0JR73VX03D0TcT jwvdGFibGU+PHRhYmxlIH dpZHRoPScxMDAlJyBzdHl vHT7oQv7lVTAf LWN (more content not included)... [facility] Ambulance Noteon 09-14-2022 Ambulance Note [id number]#1. 00OTGTIFF [facility] .Auto Diff 1on 09-12-2022 Auto Gila % 7 % Normal 08-16 [facility] Comment on above: Performed By: #### 7 [id number], [id number], [id number], 15998605, 0974439248, [id number] ####[facility] (DEFAULT)[address] [place] [address] Baso Abs# 0.1 x10 Normal 0.0-0.2 [facility] Comment on above: Performed By: #### 7 164179, [id number], [id number], 38292399, 6492727805, [id number] ####[facility] (DEFAULT)[address] [place] [address] 94208 Basophils/100 WBC (Bld) 0.5 % Normal 0.2-2.0 [facility] Comment on above: Performed By: #### 7 307680, [id number], 1363518746, 16668897, 3806303054, [id number] ####[facility] (DEFAULT)[address] [place] [address] 37595 Eos Abs# 0.4 x10 Normal 0.0-0.4 [facility] Comment on above: Performed By: #### 7 416036, [id number], 1146252815, 01542790, 3650361036, [id number] ####[facility] (DEFAULT)[address] [place] [address] 56467 Eosinophils/100 WBC (Bld) 3.6 % Normal 0.9-4.0 [facility] Comment on above: Performed By: #### 7 581482, [id number], 7181909455, 09852641, 3531912664, [id number] ####[facility] (DEFAULT)[address] [place] [address] 06330 Lymph Abs# 2.5 x10 Normal 1.3-2.9 [facility] Comment on above: Performed By: #### 7 579422, [id number], 0628545717, 55458601, 0328550763, [id number] ####[facility] (DEFAULT)[address] [place] [address] 58392 Lymphocytes/100 WBC (Bld) 21 % Normal 14-48 [facility] Comment on above: Performed By: #### 7 440406, 6416248759, 4102437863, 54365964, 0743096770, 1377324068 ####[facility] (DEFAULT)[address] [place] [address] 66325 Gila Abs# 0.8 x10 Normal 0.0-0.8 [facility] Comment on above: Performed By: #### 7 376112, [id number], 0550600648, 15627271, 1189855926, [id number] ####[facility] (DEFAULT)[address] [place] [address] Neut Abs# 8.0 x10 Normal 1.5-9.2 [facility] Comment on above: Performed By: #### 7 428077, [id number], 5403352722, 06215316, 1068490340, 6455683516 ####[facility] (DEFAULT)[address] [place] [address] Neutrophils/100 WBC (Bld) 68 % Normal 44-88 [facility] Comment on above: Performed By: #### 7 309381, [id number], 5333159101, 57356918, 2584790550, [id number] ####[facility] (DEFAULT)[address] [place] [address] .QC SARS-CoV-2 (COVID-19)/Fl u/RSV (GeneXpert)on 09-12-2022 Internal Control Pass Normal [facility] Comment on above: Order Comment: Order ed by Discern.[[email or web address]] Performed By: #### 7 [id number] ####[facility] (DEFAULT)[address] [place] [address] CBC w/ Auto Diffon 3 Erythrocyte distribution width (RBC) [Ratio] 14.2 % Normal 11.5-15.0 [facility] Comment on above: Performed By: #### 7 540262, 4939028269, 5122410015, 64699389, 5946278724, 0695084471 ####[facility] (DEFAULT)[address] [place] [address] Hematocrit (Bld) [Volume fraction] 38.8 % Normal 33.7-40.4 [facility] Comment on above: Performed By: #### 7 591787, [id number], 5061894502, 76259796, 5592265784, 2361493577 ####[facility] (DEFAULT)[address] [place] [address] 60232 Hemoglobin (Bld) [Mass/Vol] 12.6 g/dL Normal 11.3-15.9 [facility] Comment on above: Performed By: #### 7 474814, 2504869246, 6290255471, 28475982, 9877969879, 5446330918 ####[facility] (DEFAULT)[address] [place] [address] Instr WBC 11.8 x10 Invalid Interpretation Code [facility] Comment on above: Performed By: #### 7 994339, [id number], 0346241038, 22224719, 0989718161, [id number] ####[facility] (DEFAULT)[address] [place] [address] Man Diff? Auto Invalid Interpretation Code [facility] Comment on above: Performed By: #### 7 673342, [id number], 9337961043, 23784900, 9819563142, 4422913117 ####[facility] (DEFAULT)[address] [place] [address] MCH (RBC) [Entitic mass] 28 pg Normal 24-34 [facility] Comment on above: Performed By: #### 7 598557, [id number], 9348884304, 14621852, 8611961769, [id number] ####[facility] (DEFAULT)[address] [place] [address] 58692 MCHC (RBC) [Mass/Vol] 32 g/dL Normal 26-37 [facility] Comment on above: Performed By: #### 7 518165, 8288271928, 3380645246, 81926081, 7924394332, 2342179741 ####[facility] (DEFAULT)[address] [place] [address] 10422 MCV (RBC) [Entitic vol] 85 fL Normal 81-100 [facility] Comment on above: Performed By: #### 7 888496, 0149206730, 9257521426, 79800729, 8250236729, 5757652280 ####[facility] (DEFAULT)[address] [place] [address] Platelet 165 x10 Normal 138-427 [facility] Comment on above: Performed By: #### 7 272197, 8305789976, 4326209410, 27101517, 3010545003, 2649251509 ####[facility] (DEFAULT)[address] [place] [address] Platelet mean volume (Bld) [Entitic vol] 8.9 fL Normal 6.3-10.2 [facility] Comment on above: Performed By: #### 7 647740, 2131925608, 2411355728, 53164709, 5296689275, 8306932346 ####[facility] (DEFAULT)[address] [place] [address] RBC 4.58 x10 Normal 3.70-5.30 [facility] Comment on above: Performed By: #### 7 022051, 2818104762, 9930087553, 55978749, 3305280064, 3514034609 ####[facility] (DEFAULT)[address] [place] [address] WBC 11.8 x10 High 3.5-10.5 [facility] Comment on above: Performed By: #### 7 011950, 2323796771, 9468423933, 98020109, 2046130687, 7895007103 ####[facility] (DEFAULT)[address] [place] [address] CMP Standardon 09-12-2022 Breakpoint Chem Normal [facility] Comment on above: Performed By: #### 7 751766, 1250224991, 8401619368, 52047664, 6159073823, 1539730961 ####[facility] (DEFAULT)[address] [place] [address] eGFR Non AA >60 Invalid Interpretation Code [facility] Comment on above: Performed By: #### 7 463391, 0836719524, 7257540359, 47774010, 6225020530, 6938288269 ####[facility] (DEFAULT)[address] [place] [address] eGFR AA >60 Invalid Interpretation Code [facility] Comment on above: Performed By: #### 7 583705, 7875694243, 3411772802, 16402805, 2553074774, 0175709006 ####[facility] (DEFAULT)[address] [place] [address] Albumin [Mass/Vol] 3.3 g/dL Low 3.5-5.0 [facility] Comment on above: Performed By: #### 7 133185, 9123162035, 2090680392, 92337666, 1939016797, 0479128764 ####[facility] (DEFAULT)[address] [place] [address] Alk Phos 67 IU/L Normal 32-91 [facility] Comment on above: Performed By: #### 7 086746, 8526796159, 1499826687, 74117917, 7707296077, 0987308596 ####[facility] (DEFAULT)[address] [place] [address] ALT [Catalytic activity/Vol] 12.0 U/L Low 14.0-54.0 [facility] Comment on above: Performed By: #### 7 006248, 2110333452, 2940471186, 97383353, 3387071667, 0731434629 ####[facility] (DEFAULT)[address] [place] [address] 20451 AST [Catalytic activity/Vol] 15 U/L Normal 15-41 [facility] Comment on above: Performed By: #### 7 650992, [id number], 0747749246, 32182856, 6353898991, 0777486712 ####[facility] (DEFAULT)[address] [place] [address] 91626 Bili Total 0.5 mg/dL Normal 0.3-1.2 [facility] Comment on above: Performed By: #### 7 779220, 5922235552, 8761595941, 30634078, 4552009831, 8589514808 ####[facility] (DEFAULT)[address] [place] [address] 54459 Calcium [Mass/Vol] 8.6 mg/dL Low 8.9-10.3 [facility] Comment on above: Performed By: #### 7 133029, 9994543218, 3587338435, 15682158, 6126814727, 7893062308 ####[facility] (DEFAULT)[address] [place] [address] 41593 Chloride [Moles/Vol] 98 mmol/L Low 101-111 [facility] Comment on above: Performed By: #### 7 845946, 2835131196, 3706323904, 59304329, 7764323572, 1093850448 ####[facility] (DEFAULT)[address] [place] [address] 97241 CO2 [Moles/Vol] 25 mmol/L Normal 21-32 [facility] Comment on above: Performed By: #### 7 669692, 3624406270, 2613604284, 32456845, 5450439995, 1491766169 ####[facility] (DEFAULT)[address] [place] [address] 46205 Creatinine [Mass/Vol] 0.78 mg/dL Normal 0.60-1.30 [facility] Comment on above: Performed By: #### 7 114452, 3210355936, 6528685831, 72108796, 8932857267, 0611404393 ####[facility] (DEFAULT)[address] [place] [address] 61744 Glucose [Mass/Vol] 128.0 mg/dL High 74.0-118.0 [facility] Comment on above: Performed By: #### 7 721389, 1339711515, 0566870681, 04984618, 8778158869, [id number] ####[facility] (DEFAULT)[address] [place] [address] 72095 Potassium [Moles/Vol] 2.9 mmol/L Low 3.6-5.1 [facility] Comment on above: Performed By: #### 7 543308, 4780455282, 4173941478, 97499173, 6255113899, 4702316209 ####[facility] (DEFAULT)[address] [place] [address] 76071 Protein [Mass/Vol] 6.6 g/dL Normal 6.5-8.1 [facility] Comment on above: Performed By: #### 7 655011, 2969101894, 9439129152, 91911908, 4417252663, 7522881395 ####[facility] (DEFAULT)[address] [place] [address] 00990 Sodium [Moles/Vol] 130.0 mmol/L Low 136.0-144.0 [facility] Comment on above: Performed By: #### 7 603619, 5790951914, 4008150178, 33532707, 1303973473, 7540413814 ####[facility] (DEFAULT)[address] [place] [address] 67052 Urea nitrogen [Mass/Vol] 12 mg/dL Normal 8-26 [facility] Comment on above: Performed By: #### 7 206605, 9840002088, 7011415145, 79045641, 6633551256, 9510083037 ####[facility] (DEFAULT)[address] [place] [address] 07133 Albumin/Globulin [Mass ratio] 1.0 {ratio} Low 1.4-2.6 [facility] Comment on above: Performed By: #### 7 152029, 6513485666, 6752381635, 15821539, 8683655799, 5752654308 ####[facility] (DEFAULT)[address] [place] [address] 22755 Anion gap [Moles/Vol] 9.9 mmol/L Normal 5.0-19.0 [facility] Comment on above: Performed By: #### 7 [id number], [id number], [id number], [id number], [id number], [id number] ####[facility] (DEFAULT)[address] [place] [address]997 Globulin (S) [Mass/Vol] 3.3 g/dL Normal 1.5-4.3 [facility] Comment on above: Performed By: #### 7 [id number], [id number], [id number], [id number], [id number], [id number] ####[facility] (DEFAULT)[address] [place] [address] Osmolality 262 mOsm/L Invalid Interpretation Code [facility] Comment on above: Performed By: #### 7 [id number], [id number], [id number], [id number], [id number], [id number] ####[facility] (DEFAULT)[address] [place] [address]5595 Urea nitrogen/Creatinine [Mass ratio] 15.3 mg/mg Normal 4.6-16.2 [facility] Comment on above: Performed By: #### 7 [id number], [id number], [id number], [id number], [id number], [id number] ####[facility] (DEFAULT)[address] [place] [address] ED Clinical Summaryon 2022 ED Clinical Summary [facility] - Emergency Department [address] [place], [place] [id number] ED Clinical Summary PERSON INFORMATION Name: TAMIKA MYRICK Age: 62 Years Sex: FEMALE : 1960 MRN: Acct#: Visit Reason: Cough; COUGH, SORE THROAT Arrival: 09/12/2022 10:17:29 Discharge: 09/12/2022 12:40:00 LOS: 000 02:23 Check In: 09/12/2022 10:17:29 Checkout:09/12/2022 12:40:00 Address: [address] [place] [id number] PCP: JUSTIN ALVAREZ PROVIDER INFORMATION Provider Role [...] History Surgical history: TL - Tubal ligation ([id number]) in 1987 at 27 Years.. Family history: Emphysema of lung Mother Diabetes mellitus type II Father CA - Lung cancer Mother COPD Mother High blood pressure Mother Father Stroke Father Heart attack Father CABG - Coronary artery bypass graft Father . Social history: Social & Psychosocial Habits Alcohol 04 (more content not included)... [facility] ED Note-Nursingon 09-12-2022 ED Note-Nursing Patient arrives to the ED via [facility]. Alert and oriented X4. C/O cough. Patient reports having flu like symptoms for the past week. States symptoms have improved since last week. Reports being prescribed amoxicillin but has not taken it for a few days. Reports cough to be productive. Reports having fever previously to today. Denies taking Tylenol or ibuprofen today. Reports having inhalers and nebulizer at home. [facility] ED Patient Summaryon 023 ED Patient Summary [facility] - Emergency Department [address] [place] [address] PATIENT DISCHARGE INSTRUCTIONS Patient Information Name: TAMIKA MYRICK Age: 62 Years Date of : 1960 Reason For Visit: Cough; COUGH, SORE THROAT Arrival Time: 09/12/2022 10:17:29 Primary Care Physician: JUSTIN ALVAREZ Attending Physician: Milton Bhardwaj MD Comment: Visit Diagnosis: Diagnoses This Visit Bronchitis (J40) Cough ([id number]) Elevated blood pressure reading (R03.0) Hypokalemia (E87.6) The Pharmacy at [facility] is open Saturday through Saturday from [...] and/or drug addiction problems; contact the [facility] 25/02 Crisis Hotline -Text 0IIXH lp [phone]. If you received any narcotics, sedation, or [...] legal documents With: Address: When: JUSTIN ALVAREZ [facility], [address] [place] [address] [phone] Business (1) Within 3 to 5 days [...] days sent to our pharmacy here at [facility] for you in addition to Tessalon [...] and treatment you received today in the [facility] Emergency Department were for an urgent problem and are not intended as complete care. It is important for you to follow up with a doctor, nurse practitioner, or physician?s hotel administrative assistant for ongoing care. If your symptoms [...] so we can reach you if necessary. [facility] Emergency Department has provided you with a complete list of medications post discharge. Please inform your immigration specialist/provider of your visit and for further instruction on these medications. Any specific questions regarding your chronic medications and dosages should be discussed with your primary care physician(s) and/or pharmacist. New Medications [facility], [address] [place] [address] [phone], [phone] benzonatate (Tessalon Perles 100 mg oral capsule) [...] home medication (more content not included)... Normal [facility] Extra Greenon 09-12-2022 Tube Collected Yes Invalid Interpretation Code [facility] Comment on above: Performed By: #### 7 [id number], [id number], [id number], [id number], [id number], [id number] ####[facility] (DEFAULT)[address] [place] [address] Lactic Acidon 09-12-2022 Lactic Acid 8.5 mg/dL Normal 4.5-19.8 [facility] Comment on above: Performed By: #### 2 [id number] ####[facility] (DEFAULT)[address] [place] [address]0008 Mycoplasma pneumoniae IgMon 09-12-2022 Internal Control Pass Normal [facility] Comment on above: Performed By: #### 7 [id number], [id number], [id number], [id number], [id number], [id number] ####[facility] (DEFAULT)[address] [place] [address] Mycoplasma IgM Negative Normal Negative [facility] Comment on above: Performed By: #### 7 565389, [id number], [id number], [id number], [id number], [id number] ####[facility] (DEFAULT)[address] [place] [address] XR Chest 2 Viewson 3 XR Chest [...] MD 09/12/22 10:57 a Technologist: Sommer SAL [facility] Coding Summaryon 06-18-2022 Coding Summary HTMLBase 64 ZhyxkcagVUv1ePz+PGhlY WQ+UU4ILIUiD65wyKJbtG 9ED4bZVT1MXXNKGRGCZB7 AHX6ekRT7FVgcH0BkydBo BdbjlOWcJO86BKb1GAD4v MubPHlxqF6ehTTvV4s7Qo RhJP71bR82LHqbBUKpGqK 3LjZpbjsgbWFy N2loXbSmrXNvPfl+PHRhY mxlIHdpZHRoPScxMDAlJy BtzXdcBQ3eIw7uYBJxJHC vbGxhcHNlOiBj b0aiUQRfLAgeNS2doPbdO 1KqaAN5YJBjb3a6Ko77aG I+TIErZWO8sAkuZMtjb31 6GwOll6crYYN1 lUDrWDyrUAV5J66jz6O2G ONuOIVoDQY8hTI3rL7eeC ffgddoS5RczNKiNdZ3GUQ 3oHWvpH1naUzq fgimgX2zLsd+K35EOF0LF FIGSN3QJug0B5FwGxotrC I+RO24VOXxTR08aDDvsVK yi5hvdCf2EbKf XPDaRIC1nNvnMNblj4UcU BRsX41kmWXdy7Q1YMUodE siyWHmEwUcrET5xF5ySEm arwagy0wgkevz Ocfbm2qcfg74fY94O57nJ PyoQPPuCZZ5VKUjFHQyeW idsc6pzI5yOo5+RIgux5j dy9repCj6AgFv YGThktRysSnsAEZ2h3DlP q45A9DpwHfxo0TuQjh8yv 72aIQyg3H1mOY7TIahPSM xsP4lFQxpFyS2 ZMNiSlWntG88vGLjFXssX i0ruSfafZxnWB1aAAMbxy wsADIaqP8fJCKldBCftKk rWB0nGUCadtvz v463BeXaMMP1DFMymRGkK 0RrmP6sGtJyGUAsTYDmE1 QygRGcIJgpQ666CItzLiP 4CEJahhCjJ0Fs QGTylHerHbZ7s8Y2Ty9Xw 0WgmjepAWH1DEtwEMXpKr R8QuNuFjY8M0HrOvm3EHI xwVsyHE2hP7Ru PLMvwvmumtxpaJP6HTCuP EOqkB82wMPzBWszGv3ja4 G2h570IOFoDVGkpF77Mu1 udDogMTBwdCBU uT6lyejnc4pogujbTdYgT ZSgXCe6QYe6YTDdlAlnFz IhFQA5PsZ1HRO9wPHqpE8 mgNmpddlpfY9i Oyc+C62iwC1gKTW7ZSK2u jokRVYwvtDnKK97IS48T2 RyPjwvdGFibGU+PGRpdiB hpIprIH1fXeTv b9fuo8QjRRjaL2FoNRXmQ KyuPgp5GRNpNTW1uXC8cI 7gZIHfJDmoq0C6iQK1D2A ssjJpzq2ld0ut CTYyXHgkK14qyHDpg5Z4X WJqjHJ2WOKnvGqvJtBsaP 93Oyc+LLGyxUdmt6HkDez cc7aic1hteXe6 YnZtYMDhqpUoiMjwJGH5u 0PaJj88X72eYMqjOWHiAR TnUUTxYIJlvWagbw6bzD7 wIi8+PGNvbCB3 tOB3eO9lCFTeFuA0LWjjN 847XdXsoOJwLsntu8nuz3 nheCb7PfKaUOIzwqZejEp kAKK6e2NjRs77 L75vHMuwEEWkHBDkZBAlS YSroRvhss7rtZ9nRd1+PC 0jk4bxqm05bN30pJL+PHR pHFI2tIecRTna JJZacC8cKGtbQhL6RZQeF lTzbQ99rTPgEDtmUj5rrY vmtKrmDV3jMLMtrvxdr17 1KaSlk4erXVOn gXSrIVnrUBA4U00lc0O7M MKlDKAyRUM1kHE9zI2kxN lnbjogbGVmdDsgdmVydGl oFGomYWaaP169 IHRvcDsnPlBhdGllbnQgT xObWYt2E4RyRma7PXXmnV izBQ6cwJRzGUsqYo1rxNt mmXhxCJ3nEXKw pzzjc826JuYwx0psURHeg HAnUPvmRPW8F55um2X6MA DkSMExFJV0uMW7lV3btVm nbjogbGVmdDsg jkHmvWigWMbeDFjxL747E HRvcDsnPkJpcnRoIERhdG Q2LE33FJ90bBOas8D3zCL 5Z5QkKOLaiyrj bjneaIE7AFRyQMMbiO48E e1tcFphVh2oGNYfFCG0HH AobFKqP0UoaW2gKdMoCKT dDRRuL2RylFOz NEjlA527ZWagJkO2XMMmf jMfF0AeBGSngYmrTkN7o1 R6Bg2LE1G1JR93WF28qCJ sl1B3vPU2R8Cp AOTzgpyjpboriIM4LOBcY OQbpU68Sr6vlMktQb9fKY GiNLW0QHDegGJaY9BfvU1 yOiAjMDAwMDAw C7KqqQXtAEjxZ625EYujM kN5XEZiypWqF7HhIEKcqO yzAwD2h6X1Bt6DRIv5IA5 4TC72zKHhk8N4 vGU0N6TmQPBpumkwwkizz KT7DQGgXBDlxX32Mw1rzP iuTo1wLERyMRT3OBKtnKE fU6QupH0gZuNk ONGaGYKhY1XfoYMpQEkeO 753NBimMaI4FZKlieWxN6 AkETYpbJovScZ8h2Y3Ld6 YDSHjOO37GDI6 sMC1JK54HF62R0XkEvnlt GFibGU+PHRhYmxlIHdpZH RoPScxMDAlJyBzdHlsZT0 cOg2zIYDwUECy vAgyaMOxVvRcp4hoXJFsL GvfAJ9ifXkoB0YomMY9HM Oab8x9Uf81C13oM8QulCI +JVWgvSV5lYP8 qK3eKpIxAyK6VCxwO948M bUopKKxZcpka4igt7mhmE y6BtL3TLFaxgGkxOvqVRV 2y7MqDv77R83d IHdpZHRoPSIxNSUiIHZhb Pvfox9frY7lDl9+PGNvbC M5tIR1pO0zDwMdWlX3HKx mW120JpZuxBUm Jjegp1lhj5zuwLi3TnSlT BGxcuIygEouGRA3a2BvRh 55Q6ApnKqtj2InYeb3ip8 6vVUgv0K2iXN8 J9RoXAVwuqqmmWBaiBwuE H7yGIOfvtbqSUZhkW5gJC SnX7j5FwRsQwG7YSqlL6E wftQ0KKGuvFGo CVhoKBO0M10xg2G3CMWaD ZKiFWB8xMS8gD0eiDwpti ogbGVmdDsgdmVydGljYWw vWJaeB631VZRx vAjzTHZjpY2eNREgqTPyc ShqQY5oZSJdhiliEgSTK0 UGNPLzUVGWDIRTR0RgOIt NMwC2F4BiUjf6 ZTJbkDspEH9tnACkEBurE d2ycYeyxDlgLQ2nGQAtpf mcIBCalT6cZFCfwGLhvXb vRJ6kXGOuufxr r023VoTkGLE7PYEzwPGrL 4GkvW2bBrCsZFRbCTWkE8 LiwYPwEZrjI946DMrnSwZ 9YXIgslBcM2Ue HOAijOnpEyV6o0G2Wv7cB F3eRl7pEQPwYI46PZ32iR Mfy2G3hUX4Z4FeXSDcrtm vycdqeSF9GXPz KZDbvH53jNSkCKegCn3qc 8T2w469JKTtVBZvaC79Va 4pxBkmDOEzjXUXpD7mgwk jr9louctxSaEs HRDnZEv6ZBl3HEDjoYbxK aYpAIV1JxH2IZW1sEZgfA 3ioQvzomwcvM8wDom+NTk xJGPibgT5J6Tm Tpn5YWYuvIasQB8ggTVuJ UydYu9gcJmzkUbnRH3uFX UlvoyrBTYeuU8aKYFgxDY eqXwlSG5sGHIb qsvyp929HoEpGOT1WKRsp EBkW5WrpG2vEcUnJUXtOR TtS4RdxEFjDKytS528OHm jDsY0KBLotnZw N7PeGTHliWfnKrO7v4E4V h5AFZ5WVAB0P9BfPxa2PE CgtVorMC7izMUtNKhqDi1 mkVxuuLnuXV3t MLJdiwolNANpwP9tGRXay BLbvTpnWJ8cBEVisdpdr7 82NvRqPUI6YRCadUNnS9I hnV2mIbCeLCJm AALzP3KftULpYHwqN519M SefRtM8QSJdseBlQ1FvGV DvkJvgRoX9h6Y8Cy2AJSw vdGQ+AX84ez90 E6WeAbivOya9FEYdSHV2c GS6wE5vRQZvFOvay5X8fW T0C1PxmtPvae1gj1ogFPK oUJznY32koBPg u5Z7IISjtUX9QINpgUwdG pUkgY42Oee+PGNvbGdyb3 YlHfgvn5bvy2ictVm8PxA wJSIgdmFsaWdu BBU1k7CrBu18Z37mAUjrL HRoPSIzMCUiIHZhbGlnbj 9psN6xMr3+HPZkhWZ2dHS 8hN9iAjBmZhW2 KGrjO238OtJkjSUgBhtnv 4tcy5depQz1KzQdVNBdnn NscAevIHI1g3JlIy51Q0B lgMdqf1GsOcn6 wo05uGTym8L7nVD1L5ZjM IMertmjjRJjcIldJL3mTR EbflisHCNugE4cNXQsW8o 5LbYtYgY7XQhs D8WkcgR0QMQemNBpLBHdj LXHlT4ekhirf7vzqxwrJs XeJPOsUKw4NPa6IBRnjYv xNsDzJBE4NmS2 EOB3tGIbjV7jrUvxkgddv G9wOyc+YSj9n4sveSWrIY 3qmLP8ID69SL42oRKhz3K 1gHI4Z4HyZKJz koixfvtloFF7MZPuJGXlg B51Re6kcLfkGk9sUQAdBF W0XPLcwDPmQ3DjwO3fGiF qXEDgHBEyG6Pf aVMmNUjqQ313FOiiZjC3I RYnvnWgN0SxBXGfuMuiOf D2d6A6Ac1UKV16WT97HI8 0uDAtz5J7gEN6 S6FpSIWfvlhatqfunJO7K JQoSUBsnR33Zi5jqLypVu 6cLLHkMQZ6JRQuaTWcL2R qiZ3fJqOtWUTb QFFrE3WzpIChSVauY850P KzdUyU4TDAwhzXnN2EdVJ HdbHmvIqD4m9T4Ze3SBj8 8TG08CT32uXOw d5Z0fIA5Q8GcSQEipgoab eqecAW2YCLbPSLsuK82Yp 2ewCelIt4jMJZsASC6UCO geOCaB4GtcS2i XgWiVFWoFJJkR7HemZOyG FlfJ825UMhlYjT8IZYycg AvG7NqEPFhfEyvVvG7r1T 1Wh5NIBrddyj2 Z3KgAocsfXN+VN56IHAvT Q62bKMlwCWma9eziPi0Oc EsPROmBHM0fJciQCvaj0M gPAShK50jkMHp c2U (more content not included)... [facility] Provider Orderson 06-18-2022 Provider Orders [id number]#[id number] [facility] XR Knee 3 Views Lefton 06-15 XR Knee 3 Views Left EXAM: XR Knee 3 Views Left INDICATION: knee pain COMPARISON: None. TECHNIQUE: Radiographs as described above FINDINGS/IMPRESSION: Mild medial compartment joint space narrowing. Tricompartmental osteophytes. No joint effusion. Final Dictated by: Taiwo Bill MD Dictated DT/TM: 06/15/22 7:41 Signed (Electronic Signature): Taiwo Bill MD 06/15/22 7:42 pm Technologist: LOU MATHIS [facility] Miscellaneous Testing LCon 0 05-03-2022 [facility]. Test Result LC COMMENT Invalid Interpretation Code [facility] Comment on above: Result Comment: Test Ordered: [id number] Alternative Pathway Activity Alternative Pathway (AM50) 134 Units/mL [facility] Reference Range: 77-159 This assay is used for clinical purposes and was developed, and its performance characteristics determined, by [facility] at [facility]. It has not been cleared or approved by the U.S. Food and Drug Administration. The FDA has determined that such clearance or approval is not necessary. This laboratory is certified under the Clinical Laboratory Improvement Amendments of 1988 (CLIA-88) as qualified to perform high complexity clinical laboratory testing. Performed At: [address] [id number] Merline Jarvis PhD Ph:[phone] Performed At: [facility] [address] [place], [place] [id number] Elio Orellana [facility] Ph:[phone] Performed By: #### 1 [id number] #### [facility] (DEFAULT) [address] [place] [address] Pneumococcal Ab (23 Serotype ) LCon 04-24-2022 Pneumococcal Ab Type 1* LC 0.4 ug/mL Low >1.3 [facility] Comment on above: Performed By: #### 1 [id number], [id number] #### [facility] (DEFAULT) [address] [place] [address] Pneumococcal Ab Type 12 (12F)* LC 0.6 ug/mL Low >1.3 [facility] Comment on above: Performed By: #### 1 [id number], [id number] #### [facility] (DEFAULT) [address] [place] [address] Pneumococcal Ab Type 14* LC 1.3 ug/mL Low >1.3 [facility] Comment on above: Performed By: #### 1 [id number], [id number] #### [facility] (DEFAULT) [address] [place] [address] Pneumococcal Ab Type 17 (17F)* LC 0.4 ug/mL Low >1.3 [facility] Comment on above: Performed By: #### 1 [id number], [id number] #### [facility] (DEFAULT) [address] [place] [address] Pneumococcal Ab Type 19 (19F)* LC 1.7 ug/mL Invalid Interpretation Code >1.3 [facility] Comment on above: Performed By: #### 1 [id number], [id number] #### [facility] (DEFAULT) [address] [place] [address] Pneumococcal Ab Type 2* LC 1.6 ug/mL Invalid Interpretation Code >1.3 [facility] Comment on above: Performed By: #### 1 [id number], [id number] #### [facility] (DEFAULT) [address] [place] [address] Pneumococcal Ab Type 20* LC 0.2 ug/mL Low >1.3 [facility] Comment on above: Performed By: #### 1 [id number], [id number] #### [facility] (DEFAULT) [address] [place] [address] Pneumococcal Ab Type 22 (22F)* LC 0.2 ug/mL Low >1.3 [facility] Comment on above: Performed By: #### 1 [id number], [id number] #### [facility] (DEFAULT) [address] [place] [address] Pneumococcal Ab Type 23 (23F)* LC 0.3 ug/mL Low >1.3 [facility] Comment on above: Performed By: #### 1 [id number], [id number] #### [facility] (DEFAULT) [address] [place] [address] Pneumococcal Ab Type 26 (6B)* LC 1.6 ug/mL Invalid Interpretation Code >1.3 [facility] Comment on above: Performed By: #### 1 [id number], [id number] #### [facility] (DEFAULT) [address] [place] [address] Pneumococcal Ab Type 3* LC 0.5 ug/mL Low >1.3 [facility] Comment on above: Performed By: #### 1 [id number], [id number] #### [facility] (DEFAULT) [address] [place] [address] Pneumococcal Ab Type 34 (10A)* LC 0.2 ug/mL Low >1.3 [facility] Comment on above: Performed By: #### 1 [id number], [id number] #### [facility] (DEFAULT) [address] [place] [address] Pneumococcal Ab Type 4* LC 0.2 ug/mL Low >1.3 [facility] Comment on above: Performed By: #### 1 [id number], [id number] #### [facility] (DEFAULT) [address] [place] [address] Pneumococcal Ab Type 43 (11A)* LC 0.3 ug/mL Low >1.3 [facility] Comment on above: Performed By: #### 1 [id number], [id number] #### [facility] (DEFAULT) [address] [place] [address] Pneumococcal Ab Type 5* LC 1.1 ug/mL Low >1.3 [facility] Comment on above: Performed By: #### 1 [id number], [id number] #### [facility] (DEFAULT) [address] [place] [address] Pneumococcal Ab Type 51 (7F)* LC 0.2 ug/mL Low >1.3 [facility] Comment on above: Performed By: #### 1 [id number], [id number] #### [facility] (DEFAULT) [address] [place] [address] Pneumococcal Ab Type 54 (15B)* LC <0.1 Low >1.3 [facility] Comment on above: Performed By: #### 1 [id number], [id number] #### [facility] (DEFAULT) [address] [place] [address] Pneumococcal Ab Type 56 (18C)* LC 0.2 ug/mL Low >1.3 [facility] Comment on above: Performed By: #### 1 [id number], [id number] #### [facility] (DEFAULT) [address] [place] [address] Pneumococcal Ab Type 57 (19A)* LC 0.7 ug/mL Low >1.3 [facility] Comment on above: Performed By: #### 1 [id number], [id number] #### [facility] (DEFAULT) [address] [place] [address] Pneumococcal Ab Type 68 (9V)* LC 0.9 ug/mL Low >1.3 [facility] Comment on above: Performed By: #### 1 [id number], [id number] #### [facility] (DEFAULT) [address] [place] [address] Pneumococcal Ab Type 70 (33F)* LC 0.3 ug/mL Low >1.3 [facility] Comment on above: Result Comment: *Thi s test was developed and its performance characteristics determined by [employer]. It has not been cleared or approved by the U.S. Food and Drug Administration. Performed At: [facility] [id number] [id number] Jose Carlos Tavarez PhD Ph:[phone] Performed By: #### 1 [id number], [id number] #### [facility] (DEFAULT) [address] [place] [address] Pneumococcal Ab Type 8* LC 0.3 ug/mL Low >1.3 [facility] Comment on above: Performed By: #### 1 [id number], [id number] #### [facility] (DEFAULT) [address] [place] [address] Pneumococcal Ab Type 9 (9N)* LC 0.2 ug/mL Low >1.3 [facility] Comment on above: Performed By: #### 1 [id number], [id number] #### [facility] (DEFAULT) [address] [place] [address] Immunoglobulins A/E/G/M, Ser um LCon 04-22-2022 IgE Total LC 106 IU/mL Invalid Interpretation Code 4-461 [facility] Comment on above: Result Comment: Perf ormed At: [facility] [address] [id number] Ruben Elias MD Ph:[phone] Performed At: [facility] [address] [id number] Merline Jarvis PhD Ph:[phone] Performed By: #### 4 [id number] #### [facility] (DEFAULT) [address] [place] [address]28 Immunoglobulin A, Qn, Serum LC 167 mg/dL Invalid Interpretation Code 61-347 [facility] Comment on above: Performed By: #### 4 [id number] #### [facility] (DEFAULT) [address] [place] [address]93 Immunoglobulin G, Qn, Serum LC 601 mg/dL Invalid Interpretation Code 588-2972 [facility] Comment on above: Performed By: #### 4 [id number] #### [facility] (DEFAULT) [address] [place] [address] Immunoglobulin M, Qn, Serum LC 60 mg/dL Invalid Interpretation Code 26217 [facility] Comment on above: Performed By: #### 4 [id number] #### [facility] (DEFAULT) [address] [place] [address] Coding Summaryon 04-19-2022 Coding Summary [employer] 64 HvivhekySWo8eTl+PGhlY WQ+XS6UGHPcG14ltHNvyD 9VB0yDHR4FRIUFOTYYDO9 AAM9xaGS0HAsqF4DuunKg EnjnwMCkFM47IOi3YOG5z CugARbjqN9zoYNsH7o0Fm SmZZ03aS84UOjuFWWzAuI 3LjZpbjsgbWFy J3jqSxCcnMRsZuv+PHRhY mxlIHdpZHRoPScxMDAlJy YhjZqjJT2dBx6dACFiRBS vbGxhcHNlOiBj r0qaFHClYPqjFV1aoQuwV 6SkiTZ8GOVgs8t9Bp20wM I+JTJgZKA6sFybBStmu52 7PfVtk7yaAQB1 iTRkAUlzVOX6Q02do7Z1C NItWFVaFIR6zJI4cH9ftV zhrumeQ9FtsEMgQoY7VHA 8ePWbbC0xzGsd vybkpK4zDuz+N76FYP2JN VBKIV4SVoq5T2EvKdoiqZ I+HG50UVIdZR46hRFwtVO dd1ydaAp1LlRt VFDrTCD3yIapUCuuu2HzA KLnA27uiZJls0S7CDMuvC bapQCtMnOevOC2kD6gGCo gdrypj9ghgrzf Ifxfh0myye28vJ62Y91zP AbfVVAvBBP2BEHrRGLrzU xoue0vsM2eTp8+XNpgu8x kr1judTx2BnUq LQSftwMfrGxbLIK2m1RtW j84B5AaaKqkx3HtFdd1ac 84oZZmb7O8yJF1LQixQWN ajA7lLXevBhW6 CGJwLyBxnP93qTGjDXhnN n5kxQxgaXipUJ2zQZOafq yzSBWkwA2dQKEadMHcnHw uYT7tGFTbreib w567VwLcXKC6QPLbhWUlF 0PkkW0aKiEbWKUzHDQmY0 NodKVzZRktW213OXanUqO 3AJTieoYxX7Pm TYZuuBgtBaZ5j6D8Ve4Le 3DrfwdwNCX4KLyhBOU1To M9DfKuMgF3W6LzWlt7PNU qjUcxCC2zL7Tk MCZbsfqvkqppyLV9DGDyP LPgyT01qQXaOZilAy6ok2 B0u301BBYwFLAnvS78Ug2 udDogMTBwdCBU tP4lbjcpl1seycjhSaOpW AOvMBd8CTo1NKFxkJyvTv UmDJH1JlW1BZN4sBGrrN6 gqTxesdltwC5c Oyc+N65xdI9yDDD0BQR9j zdaSRUpjdDlGZ53OI90S4 RyPjwvdGFibGU+PGRpdiB uhQvqEU8pAaTg f6tfw0AvKBtjY4BxUDGqX FtlTfz9NVSdAMT2zHD5yB 9qLOJiQVrtt5Z7oZA6H9Y vcqUhmr3qf7gx TQDbWYjoD57faEIkh0A6E DWkhYE7NFNdsPoqVcNccF 93Oyc+PCOkqMaey3UfHcg em2rmu4pzfGh5 GoRwNVKlmqIivMcrKRN4y 3ZqQg40D60iJAvnZTIuVT GdQFTlZUHxnGnsky0axB7 wIi8+PGNvbCB3 wWZ8iB2kDFUkYaO9JOofD 356PxDdfLGbXxynr3sas9 vugNv6IgMyDXYsvdHkuNw bIPQ7p4QdSt72 U68uOStqTCJdEMXsLHEkO PUfoSwevo8nwK0fKf2+PC 3mg2qvde90fA09dAY+PHR sTXP4eHbeXCcd KDCfwG7fBVxrVaK0KWQsV lUnzG19mJJpUDpbLd3zgO hewPswVS1gHTQygcqkb12 2HdArc9wiKCLn nZZxDDunQRB6R70lv6X0X DJkHOPyLGY5nNX3cT2kuX lnbjogbGVmdDsgdmVydGl nSXajFUsjC883 IHRvcDsnPlBhdGllbnQgT kLfHEo9D9TnWeh2PLLftO cwXK4qzVDbEXpoNq5ehIc lnFusZC9fMVJr gfccd441EtCma1cyVIQln ZZhOXksFTE5S68rb5O4SU HsYVYkCPW9wAS8uF5ncWj nbjogbGVmdDsg xdPedYoeWYgdJAalM920N HRvcDsnPkJpcnRoIERhdG B4HV73NJ34xNVzs1W5gCM 7E6BbNUWldhro dbhqjDV5IFTdTXIxrD12Z j4niJphTc5zHNIsSFE5FN BquPWjY6NmoP6pCxXlBZX kDHEbA4LrtIZp BDxpQ493LUuzTdE4TAArl fGsF7BqTVXtfDrfFiI0r7 N7Il6ZE1A1JL39XE94eAY vq0T2jYD8F7Qz ZPGemdifjwjovVQ0XSMfL FVghP64Wq0ofPdqIn3hDT PvFNO6RCMzeELnW6XpdW5 yOiAjMDAwMDAw L7LpuXYpTLgdH263DHlsR jY4MQEjvyJcR2QdCSUhnX nySvS4m5M3Oy6AHIk1HX1 0BA15sFMok4V7 eJZ2R3PqYLEhteutrllvg VW8OVUmYDMltQ60Tc0ifW fdSy5lNCBnMOZ1LOPokFE tZ2MhhE9jHmBw RGAkKQIbD9MtwWZiPBboC 566NOfeRnR5VCNexlNmI9 ApYEQdzCosXuP7z2M3Wf4 EPGPsIV40PNT8 cHV0AG56ZU55Q3NfNorlq GFibGU+PHRhYmxlIHdpZH RoPScxMDAlJyBzdHlsZT0 cGz5wGKVlBTKd hYqibTMoWmVnp2bcBBKeQ PjnHS2rfDxsY2WrkFS9AK Ztb7e9Kh65N83fI3XelRN +TZZobER5lPF3 fS5eTeBdGbI1WGqzH152I yAcpHCqAvzby9ehf8unrG a6CvX4VXYcvzTlzLveUVP 9c6WnZz24Y69a IHdpZHRoPSIxNSUiIHZhb Kmowq0gsF7rDd3+PGNvbC N9jLD0jB1fVzTbViP9EYm sG806YqSflHMi Lshxd7bqj0sjvSu6ZqNsF VFabrXhdBgpITY0p8JdMu 11I3PdpHsye1TbOqh9sm3 0tVDzu3B1cVG9 S5TtLUEileivyDDalGghE R0qKLUypuaaVJGcsW7mNI UfO3b3QjTyWnO5YWpyP4P kopV2YWYjoEJs FThoMFZ6O02fs4B7TDQpV ZSnLTP9fRU8sG4bwHhklv ogbGVmdDsgdmVydGljYWw cVOanM199CLZz fNvrINKrhQ2cEWVziCRjm JvtXX4kPOMdljutHoIDF4 UDMYStEWSOHTNZZ3TqMSx CUuW9I8JgMne4 DFEmbDelFL2anMCpOOecN s6wcUjssEqgIC7lYMRedq auJTWuaM7wZVYdfXRytHv aBZ0yWZCpqtem a999BdWsTZR9HAUqnTVzF 8JatA7nWxRuPOEeCSQxA6 CisVKdRGhjA137QRoaDhQ 0MIFfzuLhA7Bc JFWpbEsmFfM9w3E2Dg0mC Q8lHh5jRRAqQD95VT26oT Epd2Y4nPY0U7OfXZAbypu bayyotIU8CNAr QCVgjH47uPZcMNwjLg4ch 8O5z067XLGwPTYzbR10Qv 3ooRryDNVruMOKbL6itwv xj6ngtktrKsNy SXBiJPb5EJp5DTIhuUhcC xPtWLI6EuQ1EAT0qPWrlH 7lkFrpydnoaX4qKqe+NTk fQFSkslI4Q7He Lex0CZRdeQqhRU1wbTHlA JeeAa5ahMnzzWpbDA1rOS VmwahcZQIhfV2iCIYhoWI suXywZK2oLZBk xujxw225QuSfUKS4FINwe NUuX9AkhT4jQyInEGXtNS YhJ8SfqQUbDZacT580ALj fDiV1DIUbjrGb B0GmMFLbtLbgNyU9j4U1P a0EPN5YQWB5X9MhXfh6TR TprWkwYG8yvNJfIOgiYt4 apSdtjKslJN7n WRMrjkwyEQYzeF5tPYTvk JPouAxxRF1rGWBopntth2 47JgWiGPG4CUAhxFWcJ4G inS4rUzZlBKHc HMJaK8BeaWBlWUotU347L LuaEzF8BHKvslUnI6IfDP KbaRdyZfD6v3Y3Cn6SJNq vdGQ+DP76kx36 Z2UwQswvFyu9RJKzYBE1z JJ0cC4lXNAgVYzzn3Q4mK W6X3EswxSkyk6tp5pyWMX uECofU06ayZJd a5M9ZHEzeGM3ZHJipFfbF uVfuM05Hal+PGNvbGdyb3 RyUlumz1ued2lnqCy2MlO wJSIgdmFsaWdu GQF4l1SdIs97Q02oDDqrN HRoPSIzMCUiIHZhbGlnbj 5uvY1sPp6+PRPgtZE5mVD 0yJ8eGhPyVwV2 TGazB895AaXadUBjZtnch 9pqb3esdOk4MpStQJWrgr ImfFnyMFZ9j7AiPw49U6I rrUbnk3LuMgc2 hf22zZPfr1O7zZQ4N7JpM HYilgxnwKOriIwnUP6lTM HejcbaYMXcxC9rUEHgX6n 5FbDuVsJ4QRte N7MkzfQ6VJAzuWNcXGQbu JQToN5dlzumd8otsslpSv AsLIOgZFf3IQs2USWjhYs lFsLnXIG6OnK1 AJR3vWUfjU4bbPluysrsu G9wOyc+EPn1q4qlnOHmDU 0zmOZ0HX85WR43xZJpc3C 3mTO8I3RfIJNx ybilcwgidSD6UFEqJTMqd V76Lz7xqEdnBo8iBAIqNB E1YGSngHBcS4VdwK2nTvH tKLSpXDXlC6Eo qXHqMLpqF821ZTyaDfO1O PEnygUcG6IqSAJziHsgMq Z6l1R2Mk8TVX85SA81AV5 5oFZcy5B2zOJ2 L0WvJHRbptkzznrowSU3U DYaTAVodW32Oj3ttFrpWu 0hWZDhPHG3IUGsiHWpC5V ioE8uMyAbZXAs OJRbX3UjfQIgOBmkG646V OguZuX5HECdntVcD5UgXT ShfCtsSdF9i4I9Ss0DQi4 0GL90FB07qOWj e9Z4gYP3J2DlMJFasdebx mxkaCM0ABEuNADdlQ09Sd 0wtXamMm1aJGSaVZH7HIA gzIXiU0ZvuX0k RxSoSDFcASNzO9VloVSdV WzeJ971CSwnAfQ4TPExpv YeG1KoGGKvoXpjYnD1k7N 9Kl7AXQjznmb3 V2WmDgffwQI+GO02TTXhX F51mKPjlUIta6bnoOx2Hd TwYSRrKJF6nCggSJnqq0W sVRLgA85maGBp c2U (more content not included)... Normal [facility] Miscellaneous Testing LCon 0 04-19-2022 Misc. Test Result LC COMMENT Invalid Interpretation Code [facility] Comment on above: Result Comment: Test Ordered: [id number] Mannose Binding Lectin (MBL) Mannose Binding Lectin (MBL) 140 ng/mL Low: 0 - 50 Intermediate: 51 - 500 Normal: >500 This test was developed and its performance characteristics determined by [facility]. It has not been cleared or approved by the Food and Drug Administration. Performed At: [facility] [id number] Merline Jarvis PhD Ph:[phone] Performed At: [facility] [id number] Ruben Elias MD Ph:[phone] Performed By: #### 1 [id number] #### [facility] (DEFAULT) [address] [place] [address] Provider Orderson 04-18-2022 Provider Orders [id number] 0OTGTIFF Normal [facility] Miscellaneous Testing LCon 0 04-17-2022 Test Code LC 316490 Invalid Interpretation Code [facility] Comment on above: Performed By: #### 1 [id number] #### [facility] (DEFAULT) [address] [place] [address] Test Name LC ALTERNATE PATH Invalid Interpretation Code [facility] Comment on above: Performed By: #### 1 [id number] #### [facility] (DEFAULT) [address] [place] [address] Test Code LC 314622 Invalid Interpretation Code [facility] Comment on above: Performed By: #### 1 [id number] #### [facility] (DEFAULT) [address] [place] [address] Test Name LC MBL Invalid Interpretation Code [facility] Comment on above: Performed By: #### 1 [id number] #### [facility] (DEFAULT) [address] [place] [address] Q - CULTURE,AEROBICon 2021 Bacteria identified Cx Nom (Unsp spec) SEE NOTE Normal [facility] Comment on above: Order Comment: [facility] performed at: [facility], [facility], [address] [facility], [address] [place] [address], [phone], Hemstitcher: Rafa Bergeron MD [facility] Collection Date/Time: [facility] Results Received Date/Time: [facility] Reported Date/Time: Result Comment: CULT URE, AEROBIC BACTERIA Micro Number: [id number] Test Status: Final Specimen Source: Nose Specimen Quality: Adequate Result: Growth of skin katerin (note: Growth does not include S. aureus, beta-hemolytic Streptococci or P. aeruginosa). Performed By: #### 6 [id number] #### [facility] Default [address] [place] [address] CT Maxillofacial w/o Contras ton 05-07-2020 CT [...] Cruz MD Transcribed by: ANITHA Technologist: KEVON [facility] Coding Summary.on 05-06-2020 Coding Summary. CODING DATE: 05/06/2020 FINAL [facility] DSC STATUS: Home (Routine DC) PAYOR: [...] Griffin CphT Date Saved: 05/06/2020 11:44 am [facility] Consent for Treatmenton Consent for Treatment [id number] .00CD:127 [facility] Physician Orderon 03-21-2020 Physician Order [id number] .00CD:127 [facility] Encounters Encounter Date Encounter Type Care Provider Facility Start: 08-20-2023 End: 08-21-2023 ambulatory KISHA CASTELLANOS Not Available Start: 08-15-2023 End: 08-15-2023 ambulatory KISHA CASTELLANOS Not Available Start: 01-25-2023 End: 01-25-2023 Emergency department patient visit Whitneymart Garces Facility:[facility] Start: 09-22-2022 End: 09-23-2022 ambulatory Nadine Colon Facility:[facility] Start: 09-12-2022 End: 09-12-2022 Emergency department patient visit Valente White PA-C Facility:[facility] Start: 09-12-2022 End: 09-13-2022 ambulatory Valente White PA-C Facility:[facility] Start: 06-15-2022 End: 06-16-2022 [facility] Start: 04-18-2022 End: 04-18-2022 [facility]ulatory [facility] Payers Date Payer Category Payer Private Health Insurance [id number] 2022 Medicare [id number] 2022 Medicare [id number] 2022 Unknown [id number] 1960 Unknown [id number] 2.16.8 [id number] 1960 Unknown [id number] 2.16.8 [id number] 1962 Unknown [id number] 2.16.8 [id number] 1962 Unknown [id number] 2.16.8 40.1.713112.3.579.2. 1962 Unknown [id number] 2.16.84 [id number] 1962 Unknown [id number] 2.16.84 [id number] 1962 Unknown [id number] 2.16.84 [id number] 1962 Unknown [id number] 2.16.84 [id number] Clinical Note 01-25-2023 Note Date & Type [...] and dyes. Medicines ? Take or apply vdin-qka-tusmldd and prescription medicines only as told by [...] and water are not available, use hand cost and sales record supervisor. General instructions ? Avoid the things that [...] provider. Document Revised: 05/07/2022 Document Reviewed: 05/07/2022 [employer] Patient Education ? 2022 [employer]. Pulmonary Medicine Asthma, Adult Asthma is a [...] asthma, but cer (more content not included)... [facility] Clinical Note 09-12-2022 Note Date & [...] you quit smoking. General instructions ? Take yvxu-eyt-bgybrdz and prescription medicines only as told by [...] cannot use soap and water, use hand cost and sales record supervisor. ? Avoid contact with people who have [...] goes away within 2 weeks. ? Take lypt-sdp-exirmzk and prescription medicines only as told by [...] provider. Document Revised: 06/21/2021 Document Reviewed: 02/12/2020 [employer] Patient Education ? 2021 [facility] Purpose Family History No Family History Records FoundNo Family History Records FoundNo Family History Records FoundNo Family History Records Found Advance Directives No Advanced Directives Records FoundNo Advanced Directives Records FoundNo Advanced Directives Records FoundNo Advanced Directives Records Found Additional Source Comments INFORMATION SOURCE (unrecogn ized section and content) DATE CREATED AUTHOR 05/07/2020 [facility] DATE CREATED AUTHOR AUTHOR'S ORGANIZ ATION 09/08/2021 [facility] Specialist DATE CREATED AUTHOR AUTHOR'S ORGANIZ ATION 01/31/2023 [facility] DATE CREATED AUTHOR AUTHOR'S ORGANIZ ATION 08/25/2023 [facility] dical Specialists [facility] FOR RECORDS PERTAINING TO PATIENTS WHO [...] BE BASED ON THE PRIMARY CLINICAL RECORDS. [employer] provides no warranty or guarantee of the accuracy or completeness of information in this document.
== END 2023-11-19 09:45 | disposition home or self-care (01) ==
LOC: RAD 09:45
PROVIDERS: Family Provider Internal Medicine; PCP Internal Medicine; Visit Provider Physician Assistant
DX: J43.9 Emphysema, unspecified (principal)
CPT/HCPCS: 71046